=== PATIENT | female | born 1970 | race Caucasian/White ===

== ENCOUNTER 2022-12-24 14:25 | Outpatient (OUT) | payer BC, SELFPAY ==
--- NOTE | 2022-12-24 14:55 | MM_ITS ---
Patient: MARTA MORALEZ Exam Date: 12/24/2022 : 1970 Gender:F Ordering : YUKO FLORES Admission #: [id number] Family : Order #: [id number] CLICK HERE TO VIEW EXAM RADIOLOGY REPORT PROCEDURE: MM TOMOSYNTHESIS SCREENING BI COMPARISON: MAMMO MARY BETH SCREEN, 11/15/2012. INDICATIONS: Z12.31 Calculator Name NCI Breast Cancer Risk Assessment Tool 5 Year Breast Cancer Risk 0.70% Lifetime Breast Cancer Risk 5.70% Personal Breast Cancer No Personal Ovarian Cancer No Treatments None Family Cancers Mother with cervical cancer at age 42. LOCATION: The [facility] BREAST COMPOSITION: Heterogeneously dense,which may obscure small masses. FINDINGS: DIAGNOSTIC CATEGORY 0--INCOMPLETE: NEED ADDITIONAL IMAGING EVALUATION. RIGHT BREAST: Collection of tiny calcifications within the upper axillary tail incompletely included on today's study. Axillary views and spot magnification views recommended for further evaluation. LEFT BREAST: Stable lymph node favoring benign etiology within the posterior upper-outer quadrant. RECOMMENDATIONS: ADDITIONAL MAMMOGRAPHIC VIEWS REQUIRED: RIGHT BREAST - RIGHT OBLIQUE SPOT MAGNIFICATION VIEW / AXILLARY VIEW PLEASE NOTE: A NORMAL MAMMOGRAM DOES NOT EXCLUDE THE POSSIBILITY OF BREAST CANCER. A CLINICALLY SUSPICIOUS PALPABLE LUMP SHOULD BE BIOPSIED. Dictated by: Cameron Sullivan M.D. on 12/27/2022 at 13:19 Approved by: Cameron Sullivan M.D. on 12/27/2022 at 13:23
[2022-12-24 15:16] LABS: Basophils Absolute Auto 0.1 10^3/uL (0.0-0.1); Basophils Percent Auto 0.7 % (0.2-2.0); Eosinophils Absolute Auto 0.2 10^3/uL (0.0-0.7); Eosinophils Percent Auto 2.2 % (0.9-7.0); Hematocrit 40.8 % (36.0-48.0); Hemoglobin 13.5 g/dL (12.0-16.0); Immature Granulocytes Abs Auto 0.02 10^3/uL (0.00-0.03); Immature Granulocytes Pct Auto 0.2 % (0.0-0.5); Lymphocytes Absolute Auto 1.6 10^3/uL (1.2-3.8); Lymphocytes Percent Auto 19.2 % (20.5-60.0); Mean Corpuscular HGB Conc 33.1 g/dL (29.9-35.2); Mean Corpuscular Hemoglobin 31.7 pg (26.7-34.0); Mean Corpuscular Volume 95.8 fL (81.0-99.0); Mean Platelet Volume 10.6 fL (9.5-13.5); Monocytes Absolute Auto 0.4 10^3/uL (0.3-0.8); Neutrophils Absolute Auto 5.9 10^3/uL (1.4-6.5); Neutrophils Percent Auto 72.7 % (43.0-75.0); Platelet Count 226 10^3/uL (150-450); Red Blood Count 4.26 10^6/uL (4.20-5.40); Red Cell Distribution Width 14.4 % (11.0-15.0); White Blood Count 8.2 10^3/uL (4.0-11.0)
[2022-12-24 15:37] LABS: Estimated Average Glucose 97 mg/dL
[2022-12-24 15:54] LABS: Alanine Aminotransferase 9 U/L (14-59); Albumin Level 3.8 g/dL (3.4-5.0); Alkaline Phosphatase 59 U/L (46-116); Anion Gap 9.2; Aspartate Amino Transferase 11 U/L (15-37); BUN Creatinine Ratio 11.1; Bilirubin Total 0.3 mg/dL (0.2-1.0); Calcium 8.7 mg/dL (8.5-10.1); Carbon Dioxide 29.3 mmol/L (21.0-32.0); Chloride 103 mmol/L (98-107); Chol HDL Ratio 4.3; Cholesterol 181 mg/dL (<=200); Estimated GFR (African America >60 (>=60); Estimated GFR (Non-African Ame >60 (>=60); Globulin 3.8 g/dL; Glucose 94 mg/dL (74-106); HDL Cholesterol 42 mg/dL (40-60); LDL Cholesterol Calculated 123.2 mg/dL; Potassium 3.5 mmol/L (3.5-5.1); Sodium 138 mmol/L (136-145); Thyroid Stimulating Hormone 1.423 uIU/mL (0.358-3.740); Total Protein 7.6 g/dL (6.4-8.2); Triglycerides 79 mg/dL (<=150); VLDL CHOLESTEROL 15.8 mg/dL
[2022-12-25 05:07] LABS: HCV Ab Non Reactive (Non Reactive); HIV Ab/p24 Ag Screen Non Reactive (Non Reactive)
== END 2022-12-24 14:26 | disposition home or self-care (01) ==
LOC: MAMMO 14:25
PROVIDERS: PCP Nurse Practitioner Primary Care; Visit Provider Nurse Practitioner Primary Care
DX: Z00.00 Encounter for general adult medical examination without abnormal findings (principal); Z13.6 Encounter for screening for cardiovascular disorders; Z11.59 Encounter for screening for other viral diseases; Z13.29 Encounter for screening for other suspected endocrine disorder; Z11.4 Encounter for screening for human immunodeficiency virus [HIV]; Z12.31 Encounter for screening mammogram for malignant neoplasm of breast; Z80.8 Family history of malignant neoplasm of other organs or systems; R92.1 Mammographic calcification found on diagnostic imaging of breast
CPT/HCPCS: 36415; 77063; 77067; 80053; 80061; 83036; 84443; 85025; 86803; 87389

== ENCOUNTER 2023-01-06 18:55 | Outpatient (REF) | payer BC, SELFPAY ==
[2023-01-11 14:13] LABS: Age Gdln ACOG Testing Note (.); HPV Aptima Negative (Negative); IGP, Aptima HPV, rfx 16/18,45 Note (.)
== END 2023-01-06 18:56 | disposition home or self-care (01) ==
LOC: LAB 18:55
PROVIDERS: PCP Nurse Practitioner Primary Care; Visit Provider Physician Assistant
DX: Z01.419 Encounter for gynecological examination (general) (routine) without abnormal findings (principal)
CPT/HCPCS: 87624; G0145

== ENCOUNTER 2023-01-17 14:28 | Outpatient (OUT) | payer BC, SELFPAY ==
--- NOTE | 2023-01-17 14:30 | US_ITS ---
The [address] [address] Patient Name: MARTA MORALEZ MRN: [id number] date: 1970 Sex: F Assigned Patient Location: Current Patient Location: Accession/Order Number: [id number] Exam Date: 01/17/2023 14:30 Report Date: 01/18/2023 07:29 At the request of: IRISH AVALOS Procedure: US pelvis w/ transvaginal EXAMINATION: US pelvis w/ transvaginal HISTORY: PELVIC PAIN COMPARISON: No relevant comparison available. FINDINGS: Transabdominal and transvaginal images The uterus is normal in size, contour and myometrial echotexture measuring 7.8 x 3.9 x 5.1 cm. Anteverted, anteflexed. No focal myometrial mass. The endometrium measures 9 mm, normal. The right ovary is normal measuring 1.6 x 0.7 x 1.7 cm. Normal color Doppler flow. Left ovary is not visualized. No free fluid US/US pelvis w/ transvaginal IMPRESSION: Nonvisualization of the left ovary, otherwise normal exam Electronically authenticated by: SRIDHAR BARRON Date: 01/18/2023 07:29
== END 2023-01-17 14:29 | disposition home or self-care (01) ==
LOC: US 14:28
PROVIDERS: PCP Nurse Practitioner Primary Care; Visit Provider Physician Assistant
DX: R10.2 Pelvic and perineal pain (principal)
CPT/HCPCS: 76830; 76856

== ENCOUNTER 2023-01-19 13:56 | Outpatient (OUT) | payer BC, SELFPAY ==
--- NOTE | 2023-01-19 14:00 | MM_ITS ---
Patient: MARTA MORALEZ Exam Date: 01/19/2023 : 1970 Gender:F Ordering : YUKO FLORES Admission #: [id number] Family : Order #: [id number] CLICK HERE TO VIEW EXAM RADIOLOGY REPORT PROCEDURE: MM DIAGNOSTIC MAMMO UNILAT RT, 01/19/2023, 14:00 US BREAST RT LIMITED, 01/19/2023, 14:17 COMPARISON: MM TOMOSYNTHESIS SCREENING BI, 12/24/2022. INDICATIONS: Abnormal Mammogram Of Right Breast Calculator Name NCI Breast Cancer Risk Assessment Tool 5 Year Breast Cancer Risk 0.70% Lifetime Breast Cancer Risk 5.70% Personal Breast Cancer No Personal Ovarian Cancer No Treatments None Family Cancers Mother with cervical cancer at age 42. LOCATION: The [facility] BREAST COMPOSITION: Heterogeneously dense,which may obscure small masses. FINDINGS: DIAGNOSTIC CATEGORY 2--BENIGN FINDING: Standard and magnification views of the right axilla demonstrate geographically distributed calcifications with multiple lucent centered calcifications as well as calcified cysts. Ultrasound of this region demonstrates normal subcutaneous fat and muscle with no focal mass. Benign calcifications are favored RECOMMENDATIONS: ROUTINE MAMMOGRAM AND CLINICAL EVALUATION IN 12 MONTHS. PLEASE NOTE: A NORMAL MAMMOGRAM DOES NOT EXCLUDE THE POSSIBILITY OF BREAST CANCER. A CLINICALLY SUSPICIOUS PALPABLE LUMP SHOULD BE BIOPSIED. Dictated by: Mika Alarcon MD on 01/20/2023 at 12:02 Approved by: Mika Alarcon MD on 01/20/2023 at 12:03
== END 2023-01-19 13:57 | disposition home or self-care (01) ==
PROVIDERS: PCP Nurse Practitioner Primary Care; Visit Provider Nurse Practitioner Primary Care
DX: R92.8 Other abnormal and inconclusive findings on diagnostic imaging of breast (principal); Z80.8 Family history of malignant neoplasm of other organs or systems
CPT/HCPCS: 76642; 77065

== ENCOUNTER 2023-04-11 11:18 | Outpatient (REF) | payer BC, SELFPAY ==
--- OUTSIDE RECORDS SUMMARY | 2023-06-03 11:21 | XMS_ITS | CCD ---
Author Name Unknown Address [address] [place] [address] Organization [facility] Care Team Providers Care Principal Developer Name Role Phone SASHA, DR ASH Admitting [...] Attending Unavailable KARASIK, DR ASH Consulting Unavailable KARASIAnne, Alan Primary Care Physician [phone] Manny Keller Attending Provider [phone] Unavailable Primary Care Provider UnavailManny Stallworth Attending Unavailable Manny Keller Admitting Unavailable MANNY KELLER Attending Unavailable VIVIENNE AVALOS Attending Unavailable Manny Keller DO Unavailable John Sinclair Primary Care Provider [phone] CHASE ROBERTS Attending Unavailable JOHN FLORES Referring Unavailable JOHN FLORES Primary Care Unavailable Medications Current Medications Medication Drug Class(es) Dates Sig (Normalized) Sig (Original) Tylenol PM (1 source) Histamine-1 Receptor Antagonist Start: 10-16-2021 Tylenol PM Oral, Once a day (at bedtime) Start Date: 10/16/21 Status: Ordered acetaminophen 325 mg / oxyCODONE hydrochloride 5 mg oral tablet (1 source) Opioid Agonist Start: 05-06-2023 take 1 tablet by mouth every six hours oxyCODONE-acetamin ophen (Percocet) 5-325 MG tablet Take 1 tablet by mouth every 6 (six) hours 0 05/06/2023 Active ARIPiprazole 2 mg oral tablet (2 sources) Atypical Antipsychotic take 1 tablet by mouth in the morning ARIPiprazole (ABILIFY) 2 mg tablet Take 1 tablet (2 mg total) by mouth in the morning. 0 Active hydrOXYzine pamoate 25 mg oral capsule (4 sources) Antihistamine Start: 12-22-2022 hydrOXYzine pamoate (Vistaril) 25 MG capsule every 12 (twelve) hours. 0 12/22/2022 Active take 1 tablet by bradley th three times daily as needed hydrOXYzine (ATARAX) 25 mg tablet Take 1 tablet (25 mg total) by mouth 3 (three) times a day as needed for itching. 0 Active ibuprofen 800 mg oral tablet (1 source) Nonsteroidal Anti-inflammatory Drug Start: 05-06-2023 take 1 tablet by mouth every eight hours ibuprofen 800 MG tablet Take 800 mg by mouth every 8 (eight) hours 0 05/06/2023 Active ondansetron 4 mg oral tablet (2 sources) Serotonin-3 Receptor Antagonist take 1 tablet by mouth every eight hours as needed for nausea and vomiting ondansetron (ZOFRAN) 4 mg tablet Take 1 tablet (4 mg total) by mouth every 8 (eight) hours as needed for nausea or vomiting. 0 Active semaglutide, weight loss, (WEGOVY) 2.4 mg/0.75 mL pen injector (2 sources) semaglutide, weight loss, (WEGOVY) 2.4 mg/0.75 mL pen injector Inject 0.75 mL (2.4 mg total) under the skin every 7 days. 0 Active sertraline 50 mg oral tablet (4 sources) Serotonin Reuptake Inhibitor Start: 12-22-2022 take 1 tablet by mouth once daily in the morning sertraline (Zoloft) 50 MG tablet 1 tablet Orally Once a day in the morning for 30 days 0 12/22/2022 Active take 1 tablet by mouth in the mo rning sertraline (ZOLOFT) 100 mg tablet Take 1 tablet (100 mg total) by mouth in the morning. 0 Active traZODone hydrochloride 50 mg oral tablet (4 sources) Serotonin Reuptake Inhibitor Start: 12-22-2022 traZODone (Desyrel) 50 MG tablet take 1 tablet by mouth once gary y traZODone (DESYREL) 100 mg tablet Take 1 tablet (100 mg total) by mouth nightly. 0 Active Completed/Discontinued Medications Medication Drug Class(es) Dates Sig (Normalized) Sig (Original) cephalexin 500 mg oral capsule (1 source) Cephalosporin Antibacterial Start: 10-16-2021 take 1 capsule by mouth once daily Keflex 500 mg Cap 500 mg = 1 cap(s), Oral, Daily, Take 1 tab day before procedure and 1 after procedure, # 2 cap(s), Refills(s) 0, Pharmacy: [address], 172, cm, 10/16/21 14:14:00 EDT, Height/Length Dosing, 102, kg, 10/16/21 14:14:00 EDT, Weight Dosing Start Date: 10/16/21 Status: Ordered Wegovy 2.4 MG/0.75ML solution auto-injector (2 sources) Start: 08-02-2022 End: 05-12-2023 inject 2.4 mg by subcutaneous injection every week Wegovy 2.4 MG/0.75ML solution auto-injector INJECT 2.4MG SUBCUTANEOUSLY EVERY WEEK FOR WEIGHT LOSS Subcutaneous for 28 days 0 08/02/2022 05/12/2023 Discontinued Start: 08-02-2022 inject 2.4 mg by sub cutaneous injection every week Wegovy 2.4 MG/0.75ML solution auto-injector INJECT 2.4MG SUBCUTANEOUSLY EVERY WEEK FOR WEIGHT LOSS Subcutaneous for 28 days 0 08/02/2022 Active Problems Problem Classification Problem Date Documented Date Episodic/Chronic Abdominal pain (3 sources) Pelvic and perineal pain; Translations: [Pain in female pelvis] Onset: 09-07-2021 04-11-2023 Episodic Genitourinary symptoms and ill-defined conditions (2 sources) Stress incontinence (female) (male); Translations: [Genuine stress incontinence] Onset: 10-16-2021 Chronic Genitourinary symptoms and ill-defined conditions (6 sources) Sensation as if bladder still full; Translations: [Feeling of incomplete bladder emptying] Onset: 10-16-2021 Episodic Immunizations and screening for infectious disease (1 source) Encounter for screening for human papillomavirus (HPV); Translations: [ENC SCREENING HUMAN PAPILLOMAVIRUS] Onset: 07-02-2021 Episodic Inflammatory diseases of female pelvic organs (1 source) 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 adhesions (postinfective); Translations: [FE PELV PERITON ADHES POSTINFECTIVE] Onset: 09-07-2021 Episodic Menstrual disorders (4 sources) Menorrhagia; Translations: [Excessive and frequent menstruation with regular cycle] Onset: 04-11-2023 04-11-2023 Chronic Mood disorders (1 source) Depressive disorder 10-16-2021 Chronic Other aftercare (1 source) Surgical follow-up; Translations: [Encounter for follow-up examination after completed treatment for conditions other than malignant neoplasm] 05-12-2023 Episodic Other diseases of bladder and urethra (1 source) Mass of urinary bladder; Translations: [Other specified disorders of bladder] Onset: 05-20-2023 05-25-2023 Chronic Other female genital disorders (5 sources) Abnormal uterine and vaginal bleeding, unspecified; Translations: [ABNORMAL UTERINE VAGINAL BLEED UNS] Onset: 07-14-2021 Chronic Other female genital disorders (2 sources) Pain in female genitalia on intercourse; Translations: [Unspecified dyspareunia] Onset: 04-11-2023 04-11-2023 Chronic Other female genital disorders (1 source) Dysplasia of cervix uteri, unspecified; Translations: [DYSPLASIA CERVIX UTERI UNSPECIFIED] Onset: 09-07-2021 Episodic Other screening for suspected conditions (not mental disorders or infectious disease) (3 sources) Abnormal findings on diagnostic imaging of other specified body structures; Translations: [Endometrium thickened] Onset: 09-07-2021 04-11-2023 Chronic Other screening for suspected conditions (not [...] source) Finding of sensation of bladder 10-16-2021 Unclassified (1 source) New Patient Onset: 05-20-2023 Results Test Name Value Interpretation Reference Range Facility POCT Urinalysis Auto, W/O Mi croscopyon 05-20-2023 External Poct Urine Blood Trace [facility] External Poct Urine Glucose Negative [facility] External Poct Urine Ketones Trace [facility] External Poct Urine Leukocyte Esterase Trace [facility] External Poct Urine Nitrite Negative [facility] External Poct Urine Ph 6.0 [facility] External Poct Urine Protein Negative [facility] ALL CBC WITH AUTO DIFFon BASOPHILS ABSOLUTE AUTO 0.0 [facility] Basophils/100 WBC (Bld) 0.3 % 0.2 - 2.0 % [facility] Eosinophils/100 WBC (Bld) 0.3 % Low 0.9 - 7.0 % [facility] Erythrocyte distribution width (RBC) [Ratio] 14.4 % 11.0 - 15.0 % [facility] Hematocrit (Bld) [Volume fraction] 35.2 % Low 36.0 - 48.0 % [facility] ([facility] [Mass/Vol] 11.5 g/dL Low 12.0 - 16.0 g/dL [facility] IMMATURE GRANULOCYTES ABS AUTO 0.04 High [facility] Immature granulocytes/100 WBC (Bld) 0.3 % 0.0 - 0.5 % [facility] Interpretation and review of laboratory results Abnormal [facility] LYMPHOCYTES ABSOLUTE AUTO 2.9 [facility] Lymphocytes/100 WBC (Bld) 23.4 % 20.5 - 60.0 % [facility] MCH (RBC) [Entitic mass] 31.2 pg 26.7 - 34.0 pg [facility] MCHC (RBC) [Mass/Vol] 32.7 g/dL 29.9 - 35.2 g/dL [facility] MCV (RBC) [Entitic vol] 95.4 fL 81.0 - 99.0 fL [facility] MONOCYTES ABSOLUTE AUTO 1.0 High [facility] Monocytes/100 WBC (Bld) 7.7 % 1.7 - 12.0 % [facility] NEUTROPHILS ABSOLUTE AUTO 8.4 High [facility] Neutrophils/100 WBC (Bld) 68.0 % 43.0 - 75.0 % [facility] Platelet mean volume (Bld) [Entitic vol] 9.3 fL Low 9.5 - 13.5 fL [facility] EO # 0.0 [facility] PLT 232 [facility] RBC 3.69 Low [facility] WBC 12.4 High [facility] [place] 05-05-2023 L Specimen: [id number] Received: 05/06/23 Status: PATRICK Esparza Num: [id number] Spec Type: Surgical Subm Dr: Manny Keller Tissues: A Uterus w/ or w/o tubes ovaries except neoplastic or prolap (UTERU MARY BETH FT) Procedures: HE/12, Gross/Micro L5 Age/ Patient Sex Location Account Attending Physician Priscilla Waters 52/F LABELL [id number] Manny Keller SPEC NUM: [id number] RECD: 05/06/23 STATUS: [facility] NUM: [id number] NIGEL: 05/05/[address]: Manny Keller ENTERED: 05/06/[address]: Carolynn,Lab SPEC TYPE: Surgical DEPT: AQUILES PHAM ORDERED: HE/12, Gross/Micro L5 ORDERED: HE/12, Gross/Micro L5 Pathological Diagnosis Uterus, Cervix and Bilateral Tubes, Hystrectomy: ? Uterus: Adenomyosis. Cervix: Unremarkable. Fallopian Tubes: Unremarkable. Clinical Information Pelvic pain, menorrhagia Gross Description Received in formalin labeled with the patient's name, date of and uterus and fallopian tubes is an intact/unopened 80 g, 8.6 x 5.0 x 3.5 cm uterus. The fallopian tubes are received detached and with no laterality specified. The uterine serosa is purple-wolf and dull. The cervix is 3.3 cm in diameter with wolf dull ectocervical mucosa. There is a discrete transition zone and a 1.1 cm linear os leading into a trabeculated 2.5 cm long endocervical canal. The endometrial cavity is 2.7 cm cornu to cornu by 3.2 cm fundus to lower uterine segment. The endometrium is 0.1 cm thick red-brown and velvety. The myometrium is 2 cm in average thickness with vague trabeculations throughout. There are no well-circumscribed nodules identified. The segments of fimbriated fallopian tube are 2 cm in length by 0.4 cm in diameter and 3.2 cm in length by 0.5 cm in diameter. Bilaterally, the serosa is purple-christopher and glistening. Sectioning demonstrates a central lumen. The fimbria are scant but otherwise unremarkable. Developer Designer sections are submitted in 6 cassettes as follows: -------- Specimen: [id number] Received: 05/06/23 Status: PATRICK Esparza Num: [id number] Spec Type: Surgical Subm Dr: Manny Keller Tissues: A Uterus w/ or w/o tubes ovaries except neoplastic or prolap (UTERU MARY BETH FT) Procedures: , Gross/Micro L5 -------- Patient: Priscilla Waters [id number] (Continued) -------- Specimen: [id number] Received: 05/06/23 (Continued) Gross Description (Continued) Signed (signature on file) Madelaine Gar MD 05/09/23 2254 -------- Specimen: [id number] Received: 05/06/23 Status: PATRICK Esparza Num: [id number] Spec Type: Surgical Subm Dr: Manny Keller Tissues: A Uterus w/ or w/o tubes ovaries except neoplastic or prolap (UTERU MARY BETH FT) Procedures: Gross/Micro L5 -------- Patient: Priscilla Waters [id number] (Continued) -------- Specimen: [id number] Received: 05/06/23 (Continued) Gross Description (Continued) A1 - Posterior cul-de-sac serosa A2 - Anterior and posterior cervix A3 - Anterior endomyometrium A4 - Posterior endomyometrium A5 - [place] fallopian tube entirely submitted A6 - Longer fallopian tube with fimbria entirely submitted CPT Codes 81179 -------- -------- Specimen: [id number] Received: 05/06/23 Status: PATRICK Esparza Num: [id number] Spec Type: Surgical Subm Dr: Manny Keller Tissues: A Uterus w/ or w/o tubes ovaries except neoplastic or prolap (UTERU MARY BETH FT) Procedures: , Gross/Micro L5 -------- Patient: Priscilla Waters [id number] (Continued) -------- Signed (signature on file) Madelaine Gar MD 05/09/23 2254 [facility] Pre-Certification Formon Pre-Certification Form [id number]# 1.00CD:127 [facility] Physician Referralon 022 Physician Referral [id number]#1 .00CD:127 [facility] Ambulatory Visit Summaryon 0 10-16-2021 Ambulatory Visit Summary PRISCILLA WATERS :1970 Visit Date:10/16/2021 Ambulatory Visit Instructions Your Diagnosis Feeling of incomplete bladder emptying Stress incontinence Tests Performed Urnls Dip Stick Auto w/o Microscopy POC 91347 Your Care Team Attending Physician - Crystal Richter MD Primary Care Physician - Alan BRAVO MD Referring Physician - Alan BRAVO MD This Is Your Medications List Contact prescribing physician if questions or concerns acetaminophen-diphenh ydrAMINE (Tylenol PM) Procedures Performed Diagnostic laparoscopy (08/2021), Dilation and curettage of uterus (08/2021), Cholecystectomy (2014), Tubal ligation (2004). Discharge Vitals Heart Rate (Peripheral) 87 Respiratory Rate 16 Blood Pressure 180/92 Height 172 cm Height 172.0 cm Weight 102 kg Weight 102.0 kg BMI 34.48 What to do next You Need to Schedule the Following Appointments Follow Up with Rober SANDHU, Cyrstal Pierce, URL, URO When: Where: [address] [place] [address]- [phone] Medications What How Much When Instructions Unchanged acetaminophen-diphenh ydrAMINE (Tylenol PM) Once a day (at bedtime) Contact prescribing physician if questions or concerns Test Results Urnls Dip Stick Auto w/o Microscopy POC 21775 (10/16/2021) Bilirubin Urine Dipstick - Negative Blood Urine Dipstick - Negative Glucose Urine Dipstick - Negative Ketones Urine Dipstick - Negative Leukocytes Urine Dipstick - 1+ Small Nitrite Urine Dipstick - Negative Protein Urine Dipstick - Negative Specific [place] Urine Dipstick - <=1.005 Urine Appearance Urine [...] including vitamins, herbs, eye drops, creams, and bzmr-paa-qjtqzbz medicines. ? Whether you are or may [...] ? Rem (more content not included)... Normal [facility] Patient Educationon 10-17-19 Patient Education Urology [...] including vitamins, herbs, eye drops, creams, and qkub-qcf-usmlzpt medicines. ? Whether you are or may [...] system diseases. (more content not included)... Normal [facility] PREG HCG QUALon 08-14-2021 , QUAL Negative Normal NEGATIVE [facility] Comment on above: Performed By: #### P REG #### [facility] [address] [place] [address] Dr. Thom Gonzalez US PELVIS AND TRANSVAGon [...] by: KAIT ELMORE Date: 2021-07-10 09:07 Normal [facility] PAP ACOG PANEL 2: 30 to 65on 07-06-2021 . . Normal [facility] Comment on above: Result Comment: Perf ormed at: WB Performed By: #### [id number] #### [facility] [address] [address] [address] Thom Gonzalez Age Gdln ACOG Testing - Normal [facility] Comment on above: Performed By: #### 4 [id number] #### [facility] [address] [address] [address] Thom Gonzalez DIAGNOSIS: Comment Normal [facility] Comment on above: Result Comment: NEGA TIVE FOR INTRAEPITHELIAL LESION OR MALIGNANCY. Performed at: WB Performed By: #### [id number] #### [facility] [address] [address] [address] Thom Gonzalez HPV Aptima Negative Normal Negative [facility] Comment on above: Result Comment: This nucleic acid amplification test detects fourteen high-risk HPV types (16,18,31,33,35,39,45,51,52,56,58,59,66,68) without differentiation. Performed at: =G Performed By: #### 4 [id number] #### [facility] [address] [address] [address] Thom Gonzalez Methodology: Comment Normal [facility] Comment on above: Result Comment: This liquid based ThinPrep(R) pap test was screened with the use of an image guided system. Performed at: WB Performed By: #### [id number] #### [facility] [address] [place] [address] Dr. Thom Gonzalez Note: Comment Normal [facility] Comment on above: Result Comment: The Pap smear is a screening test designed to aid in the detection of premalignant and malignant conditions of the uterine cervix. It is not a diagnostic procedure and should not be used as the sole means of detecting cervical cancer. Both false-positive and false-negative reports do occur. . Performed at: WB Performed By: #### [id number] #### [facility] [address] [place] [address] Dr. Thom Gonzalez Performed by: Comment Normal [facility] Comment on above: Result Comment: Lesvia Irizarry Grocery Worker (ASCP) Performed at: WB Performed By: #### [id number] #### [facility] [address] [place] [address] Dr. Thom Gonzalez Specimen adequacy: Comment Normal [facility] Comment on above: Result Comment: Sati sfactory for evaluation. Endocervical and/or squamous metaplastic cells (endocervical component) are present. Performed at: WB Performed By: #### [id number] #### [facility] [address] [place] [address] Dr. Thom Gonzalez Vital Signs Date Time Vital Sign Value Performing Clinician Facility 05-20-2023 16:03-0500 Body height 172.7 cm Chase Roberts MD Work Phone: [facility] 05-20-2023 16:03-0500 Body mass index (BMI) [Ratio] 22.2 kg/m2 Chase Roberts MD Work Phone: [facility] 05-20-2023 16:03-0500 Body weight 66.22 kg Chase Roberts MD Work Phone: [facility] 05-20-2023 16:03-0500 Diastolic blood pressure 66 mm[Hg] Chase Roberts MD Work Phone: [facility] 05-20-2023 16:03-0500 Heart rate 79 /min Chase Roberts MD Work Phone: [facility] 05-20-2023 16:03-0500 Systolic blood pressure 97 mm[Hg] Chase Roberts MD Work Phone: [facility] 05-12-2023 14:08-0500 Body mass index (BMI) [Ratio] 22.62 kg/m2 Vivienne Avalos PA Work Phone: [facility] 05-12-2023 14:08-0500 Body weight 67.5 kg Vivienne Amanda PA Work Phone: [facility] 05-12-2023 14:08-0500 Diastolic blood pressure 78 mm[Hg] Vivienne Avalos PA Work Phone: [facility] 05-12-2023 14:08-0500 Systolic blood pressure 120 mm[Hg] Vivienne Avalos PA Work Phone: [facility] 10-16-2021 14:01-0400 Blood Pressure Location Crystal Lue [facility] 10-16-2021 14:01-0400 Diastolic blood pressure 92 mm[Hg] Crystal Lue [facility] 10-16-2021 14:01-0400 Heart rate 87 /min Crystal Lue [facility] 10-16-2021 14:01-0400 Respiratory rate 16 /min Crystal Lue [facility] 10-16-2021 14:01-0400 Systolic blood pressure 180 mm[Hg] [facility] En[facility] Encounter Date Encounter Type Care Provider Facility Start: 05-25-2023 Telephone encounter Chase Mcclellan MD Work Phone: [facility] Start: 05-20-2023 End: 05-20-2023 ambulatory CHASE ROBERTS [facility] Start: 05-20-2023 End: 05-20-2023 Office outpatient new 45 minutes Chase Roberts MD Work Phone: [facility] Comment on above: Disorder of urinary system, unspecified Start: 05-12-2023 End: 05-12-2023 ambulatory VIVIENNE AVALOS Not Available Start: 05-12-2023 End: 05-12-2023 Postop follow up visit related to original px Vivienne KELLEY Work Phone: [facility] Comment on above: Postoperative examin ation Start: 05-06-2023 [facility] Result Encounter Manny Krishna DO Work Phone: [facility] Unsolicited Start: 05-06-2023 [facility] Result Encounter Manny Krishna DO Work Phone: [facility] Unsolicited Start: 05-05-2023 End: 05-05-2023 ambulatory Manny Krishna Facility:[facility] Start: 05-05-2023 End: 05-05-2023 ambulatory Manny Krishna Work Phone: [facility] Work Phone: Start: 05-05-2023 End: 05-05-2023 Departed Referred Manny Krishna Work Phone: [facility] Start: 04-11-2023 End: 04-11-2023 ambulatory MANNY KRISHNA Not Available Start: 10-16-2021 End: 10-16-2021 Patient encounter procedure Crystal Richter [facility] Start: 08-14-2021 End: 08-14-[address] ALAN BRAVO Facility:[facility] Start: 08-11-[address] ALAN BRAVO Faci lity:[facility] Start: 08-05-2021 Encounter for other preprocedural examination DR ALAN BRAVO [facility] Start: 08-03-2021 End: 08-04-[address] ALAN BRAVO Facility:[facility] Start: 08-03-2021 End: 08-04-2021 Encounter for other preprocedural examination DR ALAN BRAVO Facility:[facility] Start: 07-10-2021 End: 07-11-[address] ALAN BRAVO Facility:[facility] Start: 06-30-2021 End: 06-30-[address] ALAN BRAVO Facility:[facility] Procedures Date Procedure Procedure Detail Performing Clinician Start: 05-20-2023 Urnls dip stick/tabl et rgnt auto w/o microscopy Chase Roberts MD Work Phone: Start: 05-06-2023 ALL CBC WITH AUTO DIFF Manny Krishna DO Work Phone: Start: 08-02-2021 Diagnostic laparoscopy Crystal Richter Start: 08-02-2021 Dilation and curetta ge of uterus Crystalamber Richter Start: 06-30-2021 Microscopic observat ion [Identifier] in Cervix by Cyto stain Vivienne KELLEY Work Phone: Start: 04-04-2014 Cholecystectomy Crystal L ue Start: 04-04-2004 Ligation of fallopian tube Crystal Richter Plan of Treatment Date Care Activity Detail Author Start: 06-30-2026 Screening for malign ant neoplasm of cervix [facility] Start: 05-20-2024 Adult BMI Screening Adult BMI Screen ing [facility] Start: 05-20-2024 Tobacco Screening Tobacco Screening [facility] Start: 07-15-2023 End: 07-15-2023 Patient encounter procedure 07/15/2023 2:00 PM EDT Office Visit [facility] [address] [place] [phone] Chase Roberts MD [address] [place] [address] [facility] Start: 06-14-2023 End: 06-14-2023 Admission to same day surgery center 06/14/2023 9:45 AM EDT - 06/14/2023 10:30 AM EDT [facility] [address] [place] [phone] Chase Roberts MD [address] [place] [address] CYSTOSCOPY BIOPSY BLADDER [85494 (CPT )] [facility] Comment on above: CYSTOSCOPY BIOPSY BL ADDER [94214 (CPT )] Start: 06-14-2023 End: 06-14-2023 Cystourethroscopy with biopsy CYSTOSCOPY BIOPSY BLADDER Disorder of urinary system, unspecified Mass of bladder 06/14/2023 9:45 AM EDT [facility] Start: 06-14-2023 Subsequent hospital visit by physician 06/14/2023 9:45 AM EDT Hospital En[facility] [address] [place] [phone] Chase Roberts MD [address] [place] [address] [facility] Start: 06-06-2023 End: 06-06-2023 Patient encounter procedure 06/06/2023 10:45 AM EST Procedure visit [facility] Pre-Admission Clinic On [address] JEAN CARLOSK[place] [address] [facility] Start: 06-02-2023 End: 06-02-2023 Patient encounter procedure 06/02/2023 1:50 PM EST Office Visit [facility] [address] [place] [id number] Raiza Herrera MD [address] [place] [address] [facility] Start: 12-03-2022 COVID-19 Vaccine ( season) COVID-19 Vaccine ( season) [facility] Start: 12-03-2022 Influenza vaccination [facility] Start: 06-29-2019 Administration of va ricella zoster vaccine Zoster (Shingles) Vaccine (1 of 2) [facility] Start: 2009 Screening for malign ant neoplasm of breast Mammogram [facility] Start: 1990 Screening for malign ant neoplasm of cervix Pap Smear [facility] Start: 1988 DTaP,Tdap and Td Vac cines (1 - Tdap) DTaP,Tdap and Td Vaccines (1 - Tdap) [facility] Start: 1981 Depression Screening Depression Scre ening [facility] Start: 1969 Screening for malign ant neoplasm of colon [facility] Start: 1969 Tobacco Counseling Tobacco Counselin g [facility] Cystourethroscopy wi th biopsy CYSTOSCOPY BIOPSY BLADDER Disorder of urinary system, unspecified Mass of bladder [facility] Payers Date Payer Category Payer Self-pay 2021 Unknown [id number] 1970 Unknown [id number] 2.16.84 [id number] 1970 Unknown [id number] 2.16.84 [id number] 1970 Unknown [id number] 2.16.84 [id number] 1970 Unknown [id number] 2.16.84 [id number] 1970 Unknown [id number] 2.16.84 [id number] 1970 Unknown [id number] 2.16.84 [id number] 1970 Unknown [id number] 2.16.84 [id number] 1970 Unknown [id number] 2.16.8 [id number] 1959 Unknown [id number] Social History Date Type Detail Facility Start: 10-16-2021 Tobacco smoking status Light tobacco smoker (finding) [facility] Start: 09-13-2018 End: 05-20-2023 Sex Assigned At Female [facility] Start: 1970 Sex Assigned At Female [facility] smoking consumption unknown [facility] Start: 1970 Sex Assigned At Not on file [facility] Start: 12-27-2022 Gender identity Identifies as female gender (finding) [facility] Start: 12-27-2022 Sexual orientation Heterosexual (finding) [facility] Start: 04-04-1999 Tobacco smoking status PRIS Smokes tobacco daily [facility] Start: 04-04-1999 History of tobacco use Cigarette Smoker [facility] History of tobacco use Passive smoker [facility] Start: 05-19-2023 Tobacco use and exposure Smokeless tobacco non-user [facility] Start: 05-20-2023 Alcohol intake Lifetime non-drinker (finding) [facility] Start: 09-13-2018 End: 05-20-2023 History of Social function [facility] Childcare Unknown [facility] Functional Status Date Assessment Result Facility 10-16-2021 Functional Status N/A [facility] Clinical Notes 10-16-2021 to 05-25-2023 Telephone Encounter - Jane Burgessbandar - 05/25/2023 12:04 PM ESTTelephone Encounter - Jane Pollack - 05/25/2023 12:04 PM ESTTelephone Encounter - Jane Pollack - 05/25/2023 12:04 PM EST Note Date & Type Note Facility 05-25-2023 Miscellaneous Notes ----- Message from Chase Roberts MD sent at 05/20/2023 5:06 PM EST ----- Please schedule this patient for Cysto and bladder Biopsy under MAC at [place] CALLED PATIENT FOR SCHEDULING. HAD TO LEAVE A VM. RETURNED PATIENTS CALL HAD TO LEAVE A VM SPOKE WITH PATIENT SCHEDULED FOLLOWS: PAT - AT 1045AM SURG - 06/14/2023 PATIENT TO ARRIVE AT 815AM F/U- 07/15/2023 AT 2PM LETTER TO PATIENT INTO MY CHART. DR ROBERTS: ARIAS documented in this encounter [facility] 05-25-2023 Telephone encounter Note ----- Message from Chase Roberts MD sent at 05/20/2023 5:06 PM EST ----- Please schedule this patient for Cysto and bladder Biopsy under MAC at [place] [facility] [facility] 05-25-2023 Telephone encounter Note CALLED PATIENT FOR SCHEDULING. HAD TO LEAVE A VM. [facility] 05-25-2023 Telephone encounter Note RETURNED PATIENTS CALL HAD TO LEAVE A VM [facility] 05-25-2023 Telephone encounter Note SPOKE WITH PATIENT SCHEDULED FOLLOWS: PAT - AT 1045AM SURG - 06/14/2023 PATIENT TO ARRIVE AT 815AM F/U- 07/15/2023 AT 2PM LETTER TO PATIENT INTO MY CHART. DR ROBERTS: ARIAS [facility] 05-20-2023 History of Presen t illness Narrative Images from the original note were not included. NEW FEMALE PATIENT HISTORY AND PHYSICAL EXAM NAME: Priscilla Waters CONSULTATION REQUEST BY: Self Chief Complaint Patient presents with New Patient HISTORY OF PRESENT ILLNESS: I was asked to see Priscilla Waters a 52 y.o. year old female with history of Robotic Hysterectomy on 05/05/[address] Keller. During the cystoscopy, a bladder tumor was identified and then she was referred to urology. Patient is an active smoker. She has a 8 month history of voiding dysfunction and incomplete bladder emptying AUASS 22/35 QOL 4/6 ROSIE Bother 0/8 PFDI 20 POPDI-6 08/25 CRAD-8 SUZIE-6 02/25 STRESS URINARY INCONTINENCE: yes URGENCY: yes URGE INCONTINENCE: yes PADS: no FREQUENCY: 10 NOCTURIA: 1 STRAINING TO VOID: yes EMPTIES COMPLETELY: no URINARY TRACT INFECTION: no HEMATURIA HISTORY: no STONES: no PREGNANCIES: yes G 2 P 2 vaginal delivery.. Sexually active with no pain Past Medical History: Diagnosis Date Anxiety Depressed Gall stones Past Surgical History: Procedure Laterality Date CHOLECYSTECTOMY 2016 D&C FIRST TRIMESTER / TX INCOMPLETE / MISSED / SEPTIC / INDUCED 2020 HYSTERECTOMY TUBAL LIGATION 1994 Social History Socioeconomic History Marital status: Spouse name: Not on file Number of children: Not on file Years of education: Not on file Highest education level: Not on file Occupational History Not on file Tobacco Use Smoking status: Every Day Types: Cigarettes Start date: 04/04/1999 Passive exposure: Current Smokeless tobacco: Never Substance and Sexual Activity Alcohol use: Never Drug use: Never Sexual activity: Not on file Other Topics Concern Not on file Social History Narrative Not on file Social Determinants of Health Financial Resource Strain: Not on file Food Insecurity: No Food Insecurity (05/20/2023) Hunger Screening Food Insecurity - Worry: Never True Food Insecurity - Inability: Never True Transportation Needs: Not on file Physical Activity: Not on file Stress: Not on file Social Connections: Not on file Interpersonal Safety: Not on file Housing Instability: Not on file family history includes Alcohol abuse in her father and sister; Arthritis in her sister; Cervical cancer in her mother; Depression in her sister; Heart disease in her father and mother. CAFFEINE: no FLUIDS: 10-12 bottles of water a OCCUPATION: Works for [employer] MEDICATIONS: Current Outpatient Medications: hydrOXYzine (ATARAX) 25 mg tablet, Take 1 tablet (25 mg total) by mouth 3 (three) times a day as needed for itching., Disp: , Rfl: ondansetron (ZOFRAN) 4 mg tablet, Take 1 tablet (4 mg total) by mouth every 8 (eight) hours as needed for nausea or vomiting., Disp: , Rfl: semaglutide, weight loss, (WEGOVY) 2.4 mg/0.75 mL pen injector, Inject 0.75 mL (2.4 mg total) under the skin every 7 days., Disp: , Rfl: traZODone (DESYREL) 100 mg tablet, Take 1 tablet (100 mg total) by mouth nightly., Disp: , Rfl: ARIPiprazole (ABILIFY) 2 mg tablet, Take 1 tablet (2 mg total) by mouth in the morning. (Patient not taking: Reported on 05/20/2023), Disp: , Rfl: sertraline (ZOLOFT) 100 mg tablet, Take 1 tablet (100 mg total) by mouth in the morning. (Patient not taking: Reported on 05/20/2023), Disp: , Rfl: ALLERGIES:No Known Allergies REVIEW OF SYSTEMS GENERAL: no fever, chills, weight loss or fatigue. HEAD & NECK: no blurred vision, cataracts or hearing loss. CARDIOVASCULAR: no chest pain, palpitations, ankle edema. RESPIRATORY: no chronic cough, wheezing, dyspnea, hemoptysis. GENITOURINARY: Vaginal hysterectomy GI: negative for abdominal discomfort or fecal incontinence, no change in bowel habits. URONEURO: no weakness, no balance deficits, no coordination deficits, no back pain. MUSCULOSKELETAL: no chronic back pain, arthritis, chronic neck pain. SKIN: no varicose veins, rash, abnormal itching. BLOOD/LYMPHATIC: no easy bleeding, easy bruising, transfusion history. NEUROLOGICAL: no headaches, numbness, seizures, stroke. PHYSICAL EXAM VITAL SIGNS: Vitals: 05/20/23 1603 BP: 97/66 Pulse: 79 GENERAL: well appearing, in no acute distress, alert. NEUROLOGICAL/PSYCHOLOGICAL: A/Ox3. Normal mood, with no signs of depression, anxiety or agitation. HEAD & NECK: no masses, adenopathy, icterus. Thyroid nonpalpable. RESPIRATORY: normal effort, no retractions or purse-lip breathing. CARDIOVASCULAR: no extremity swelling varices, edema, pallor or erythema. ABDOMEN: soft, nontender, nondistended, no masses. HERNIAS: none. SKIN/LYMPH: no rash, lesions. EXTREMITIES: extremities normal. No deformities, edema, clubbing or skin discoloration. GENITOURINARY: urethral meatus normal CERVIX: absent ADNEXA: non-palpable VAGINAL VAULT: normal for age SENSORY/NEUROLOGICAL EXAM: intact POP Q STAGE: 0 SIMPLE CYSTOMETRICS BLADDER FILLED WITH: 250cc SUPINE STRESS TEST: negative DETRUSOR INSTABILITY: none COMPLEX UROFLOWMETRY: VOIDED: 320cc Max 21.3cc/s Mean 12.5cc/s VOIDING PATTERN: Cook shaped curve URINALYSIS: (LABSTIX) URINE DIP: Lab Results Component Value Date EXTPOCURBS Negative 05/20/2023 EXTPOCUKET Trace 05/20/2023 EXTPOCUBLD Trace 05/20/2023 EXTPOCUPH 6.0 05/20/2023 EXTPOCUPRO Negative 05/20/2023 EXTPOCUNIT Negative 05/20/2023 EXTPOCULEE Trace 05/20/2023 IMPRESSION Patient is a 52 y.o. year old female with bladder mass on cystoscopy after a robotic hysterectomy. Patient has a normal pelvic exam PLAN Patient consented for a cysto and bladder Biopsy under anesthesia Risk and Benefits discussed Total time spent was 45 minutes: Obtaining and/or reviewing separately obtained history Performing a medically appropriate examination and/or evaluation Counseling and educating the patient/family/caregiver Ordering medications, tests, or procedures Referring and communicating with other health acute care nurse practitioner (not separately reported) Documenting clinical information in the electronic or other health record . documented in this encounter [facility] 05-20-2023 Instructions Chase Roberts MD - 05/20/2023 4:00 PM EST Please follow-up for cystoscopy documented in this encounter [facility] 05-12-2023 History of Presen t illness Narrative Reason for Appointment: Patient ID: Priscilla Waters is a 52 y.o. female who presents for Post-op Visit (Robotic assisted hyst 05/05/2023) Patient presents today for 1 Week Post Op appointment. Current Medications: has a current medication list which includes the following prescription(s): hydroxyzine pamoate, ibuprofen, oxycodone-acetaminophen, sertraline, and trazodone. Medical History: Active Ambulatory Problems Diagnosis Date Noted Endometrial thickening on ultrasound 04/11/2023 Menorrhagia with regular cycle 04/11/2023 Pelvic pain in female 04/11/2023 Dysmenorrhea 04/11/2023 Dyspareunia in female 04/11/2023 Resolved Ambulatory Problems Diagnosis Date Noted No Resolved Ambulatory Problems Past Medical History: Diagnosis Date Breast cancer screening by mammogram 2015 No family history on file. Social History Tobacco Use Smoking status: Not on file Smokeless tobacco: Not on file Substance Use Topics Alcohol use: Not on file Drug use: Not on file Past Surgical History: Procedure Laterality Date ROBOTIC ASSISTED HYSTERECTOMY 05/05/2023 TUBAL LIGATION No Known Allergies Review of Systems: Review of Systems Constitutional: Negative. HENT: Negative. Eyes: Negative. Respiratory: Negative. Cardiovascular: Negative. Gastrointestinal: Negative. Genitourinary: Negative. Musculoskeletal: Negative. Skin: Negative. Neurological: Negative. All other systems reviewed and are negative. Hematological: Negative. Endocrine: Negative. Allergic/Immunologic: Negative. Objective Physical Exam Constitutional: Appearance: Normal appearance. She is normal weight. HENT: Head: Normocephalic. Cardiovascular: Rate and Rhythm: Normal rate. Pulses: Normal pulses. Pulmonary: Effort: Pulmonary effort is normal. Breath sounds: Normal breath sounds. Abdominal: Palpations: Abdomen is soft. Musculoskeletal: General: Normal range of motion. Neurological: General: No focal deficit present. Mental Status: She is alert and oriented to person, place, and time. Psychiatric: Mood and Affect: Mood normal. Behavior: Behavior normal. Thought Content: Thought content normal. Judgment: Judgment normal. Vitals and nursing note reviewed. Vitals: Estimated body mass index is 22.62 kg/m as calculated from the following: Height as of 23: 5' 8 . Weight as of this encounter: 148 lb 12.8 oz. BP: 120/78 No LMP recorded (lmp unknown). Patient has had a hysterectomy. Assessment/Plan Encounter Diagnosis Name Primary? Postoperative examination Patient presents today for a one week postop robotic assisted hysterectomy and bilateral salpingectomy with cystoscopy. Patient is doing well with minor complaints of pain. Incision has been noted as healing well with no signs and symptoms of infection. Pt referred to urology in [place] due to possible bladder tumor found during cystoscopy. Pt will follow up in 4 weeks for 6 week post op appt and vaginal cuff exam Follow Up: Patient is to return in 5 weeks for 6 week evaluation. Documented by ALLIE Roque on behalf of: ALLIE Roque documented in this encounter [facility] 10-16-[address] Bravo referral [...] of recent labs. -Obtain outside labs of [facility] to eval renal function. If elevated will [...] as above. Follow-up With When Contact Information Rober SANDHU, Crystal Pierce, URL, [facility] [address], [place] [phone] Additional Instructions: Patient Education Urodynamic Testing I, Aurelia Nunez, personally scribed for _ on 10/16/2021 15:26:15. . Documentation recorded by the Aurelia hayes a (more content not included)... [facility] Comment on above: Result Comment: Elec tronically Signed By: Rober SANDHU, Crystal Lance.br\Date and Time Signed: 10/16/21 18:50 EDT 10-16-2021 Hospital Discharg e instructions Patient Education [...] including vitamins, herbs, eye drops, creams, and nwll-rvy-alezvup medicines. ?Whether you are or may be [...] 01/16/2008 Document Revised: 07/10/2019 Document Reviewed: 01/23/2018 [employer] Patient Education 2020 [employer] Follow Up Care 10/08/2021 10:43:51 With:Rober SANDHU, VIRGIL Quinones, [facility] Address: [address] [place] [phone] When: Unknown [facility] Evaluation + Plan note No data available for this section [facility] Evaluation note No assessment inform ation available [facility] Work Phone: Evaluation note Diagnosis Postoperative examination Follow-up examination, following unspecified surgery documented [facility] Disorder of urinary system, unspecified documented [facility] filed[facility] in this [facility] No data available for this section [facility] Juan Summary Purpose Family History No Family History Records FoundNo Family History Records FoundNo Family History Records FoundNo Family History Records FoundNo Family History Records Found Advance Directives No Advanced Directives Records FoundNo Advanced Directives Records FoundNo Advanced Directives Records FoundNo Advanced Directives Records FoundNo Advanced Directives Records Found Additional Source Comments INFORMATION SOURCE (unrecogn ized section and content) DATE CREATED AUTHOR 09/08/2021 [facility] DATE CREATED AUTHOR AUTHOR'S ORGANIZ ATION 10/26/2021 [facility] DATE CREATED AUTHOR AUTHOR'S ORGANIZ ATION 05/10/2023 [facility] DATE CREATED AUTHOR AUTHOR'S ORGANIZ ATION 05/13/2023 [facility] EPIC DATE CREATED AUTHOR AUTHOR'S ORGANIZ ATION 05/22/2023 [facility] Care Team (unrecognized sect ion and content) Team Status: Inactive Member Role Status Dates Manny Kleler Attending Provider Active [facility] End: May 05, 2023 Principal Developer Relationship Specialty Start Date End Date Manny Keller DO [address] [place] [address] [place] [address] PCP - [place] [employer] 04/04/23 Principal Developer Relationship Specialty Start Date End Date John Flores APRN-CNP [address] [place] [phone] PCP - General Primary Care 05/20/23 Principal Developer Relationship Specialty Start Date End Date John Flores APRN-SPACE OFFICER [address] [place] [id number] PCP - General Primary Care 05/20/23 Goals (unrecognized section and content) Goals may be documented in a n alternate section Reason for Visit (unrecogniz ed section and content) Reason Comments Post-op Visit Robotic assisted hys t 05/05/2023 Reason Comments New Patient Specialty Diagnoses / Procedures Referred By Contac t Referred To Contact Urology Diagnoses Disorder of urinary system, unspecified John Flores, LENS GENERATOR-SPACE OFFICER [address] [place] [address] [facility] S[facility] [address] [place] [address] [place] [address] Referral ID Status Reason Start Date Expiration Date Visits Requested Visits Authorized [id number] Pending Review Specialty Services Required 3 03/14/2024 1 1 FOR RECORDS PERTAINING TO PATIENTS WHO ARE [...] BE BASED ON THE PRIMARY CLINICAL RECORDS. [facility] [facility]. provides no warranty or guarantee of the accuracy or completeness of information in this document.
== END 2023-04-11 11:19 | disposition home or self-care (01) ==
LOC: LAB 11:18
PROVIDERS: PCP Nurse Practitioner Primary Care; Visit Provider Obstetrics & Gynecology
DX: R10.2 Pelvic and perineal pain (principal); R93.89 Abnormal findings on diagnostic imaging of other specified body structures
CPT/HCPCS: 88305

== ENCOUNTER 2023-04-29 12:31 | Outpatient (OUT) | payer BC, SELFPAY ==
--- OUTSIDE RECORDS SUMMARY | 2023-04-29 12:34 | XMS_ITS | CCD ---
Author Name Unknown Address [address] [place] [address] Organization [facility] Care Team Providers Care Bad Work Gatherer Name Role Phone SASHA, DR ASH Admitting Unavailable KARASIK, DR ASH Attending Unavailable KARASIK, DR ASH Consulting Unavailable ZIEBER, DR KAIT Monique Consulting Unavailable KARASIK, DR ASH Admitting Unavailable KARASIK, DR ASH Attending Unavailable YUHAS, DR CADE Primary Care Unavailable KARASIK, DR ASH Admitting Unavailable KARASIK, DR ASH Attending Unavailable YUHAS, DR CADE Primary Care Unavailable KARASIK, DR ASH Consulting Unavailable KARASIK, DR ASH Admitting Unavailable KARASIK, DR ASH Attending Unavailable YUHAS, DR CADE Primary Care Unavailable KARASIK, DR ASH Consulting Unavailable AGUBOSIM, MICHELLE Consulting Unavailable DORKOSKIE, BABITA Consulting Unavailable KARASIK, DR ASH Admitting Unavailable KARASIK, DR ASH Attending Unavailable KARASIK, DR ASH Consulting Unavailable KARASIK, Alan Primary Care Physician MANNY SIBLEY Attending Unavailable Medications Current Medications Medication Drug Class(es) Dates Sig (Normalized) Sig (Original) Tylenol PM (1 source) Histamine-1 Receptor Antagonist Start: 10-16-2021 Tylenol PM Oral, Once a day (at bedtime) Start Date: 10/16/21 Status: Ordered Completed/Discontinued Medications Medication Drug Class(es) Dates Sig (Normalized) Sig (Original) cephalexin 500 mg oral capsule (1 source) Cephalosporin Antibacterial Start: 10-16-2021 take 1 capsule by mouth once daily Keflex 500 mg Cap 500 mg = 1 cap(s), Oral, Daily, Take 1 tab day before procedure and 1 after procedure, # 2 cap(s), Refills(s) 0, Pharmacy: [facility], 172, cm, 10/16/21 14:14:00 EDT, Height/Length Dosing, 102, kg, 10/16/21 14:14:00 EDT, Weight Dosing Start Date: 10/16/21 Status: Ordered Problems Problem Classification Problem Date Documented Date Episodic/Chronic Abdominal pain (1 source) Pelvic and perineal pain; Translations: [PELVIC AND PERINEAL PAIN] Onset: 09-07-2021 Episodic Genitourinary symptoms and ill-defined conditions (2 sources) Stress incontinence (female) (male); Translations: [Genuine stress incontinence] Onset: 10-16-2021 Chronic Genitourinary symptoms and ill-defined conditions (1 source) Sensation as if bladder still full; Translations: [Feeling of incomplete bladder emptying] Onset: 10-16-2021 Episodic Immunizations and screening for infectious disease (1 source) Encounter for screening for human papillomavirus (HPV); Translations: [ENC SCREENING HUMAN PAPILLOMAVIRUS] Onset: 07-02-2021 Episodic Inflammatory diseases of female pelvic organs (1 source) 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 adhesions (postinfective); Translations: [FE PELV PERITON ADHES POSTINFECTIVE] Onset: 09-07-2021 Episodic Mood disorders (1 source) Depressive disorder 10-16-2021 Chronic Other female genital disorders (5 sources) Abnormal uterine and vaginal bleeding, unspecified; Translations: [ABNORMAL UTERINE VAGINAL BLEED UNS] Onset: 07-14-2021 Chronic Other female genital disorders (1 source) Dysplasia of cervix uteri, unspecified; Translations: [DYSPLASIA CERVIX UTERI UNSPECIFIED] Onset: 09-07-2021 Episodic Other screening for suspected conditions (not mental disorders or infectious disease) (1 source) Abnormal findings on diagnostic imaging of other specified body structures; Translations: [ABNORML FIND DX IMG OTH BODY STRUC] Onset: 09-07-2021 Chronic Other screening for suspected conditions (not mental disorders or infectious disease) (4 sources) Encounter for screening for malignant neoplasm of cervix; Translations: [ENC SCREENING MALIG NEOPLASM CERV] Onset: 06-30-2021 Episodic Prolapse of female genital organs (1 source) Uterovaginal prolapse, unspecified; Translations: [UTEROVAGINAL PROLAPSE UNSPECIFIED] Onset: 09-07-2021 Chronic Residual codes; unclassified (1 source) Acquired absence of other specified parts of digestive tract; Translations: [ACQ ABSENCE OTH PART DIGESTV TRACT] Onset: 09-07-2021 Episodic Residual codes; unclassified (1 source) Family history of malignant neoplasm of other genital organs; Translations: [FAM HX MALIG NEOPLSM OTH GENIT ORGN] Onset: 09-07-2021 Episodic Substance-related disorders (1 source) Nicotine dependence, cigarettes, uncomplicated; Translations: [NICOTINE DEPEND CIGARETTES UNCOMP] Onset: 09-07-2021 Chronic Unclassified (1 source) Finding of sensation of bladder 10-16-2021 Results Test Name Value Interpretation Reference Range Facil ity Pre-Certification Formon Pre-Certification Form [id number] CD:127 Normal [facility] Physician Referralon 022 Physician Referral [id number] D:127 Normal [facility] Ambulatory Visit Summaryon 0 10-16-2021 Ambulatory Visit Summary MARTA MORALEZ :1970 Visit Date:10/16/2021 Ambulatory Visit Instructions Your Diagnosis Feeling of incomplete bladder emptying Stress incontinence Tests Performed Urnls Dip Stick Auto w/o Microscopy POC 60824 Your Care Team Attending Physician - Rober SANDHU, Crystal Pierce Primary Care Physician - Alan BRAVO MD Referring Physician - Alan BRAVO MD This Is Your Medications List Contact prescribing physician if questions or concerns acetaminophen-diphenhyd rAMINE (Tylenol PM) Procedures Performed Diagnostic laparoscopy (08/2021), Dilation and curettage of uterus (08/2021), Cholecystectomy (2014), Tubal ligation (2004). Discharge Vitals Heart Rate (Peripheral) 87 Respiratory Rate 16 Blood Pressure 180/92 Height 172 cm Height 172.0 cm Weight 102 kg Weight 102.0 kg BMI 34.48 What to do next You Need to Schedule the Following Appointments Follow Up with Rober SANDHU, Crystal Pierce, URL, URO When: Where: [address] [place] [phone] Medications What How Much When Instructions Unchanged acetaminophen-diphenhyd rAMINE (Tylenol PM) Once a day (at bedtime) Contact prescribing physician if questions or concerns Test Results Urnls Dip Stick Auto w/o Microscopy POC 09170 (10/16/2021) Bilirubin Urine Dipstick - Negative Blood Urine Dipstick - Negative Glucose Urine Dipstick - Negative Ketones Urine Dipstick - Negative Leukocytes Urine Dipstick - 1+ Small Nitrite Urine Dipstick - Negative Protein Urine Dipstick - Negative Specific [place] Urine Dipstick - <=1.005 Urine Appearance Urine Dipstick - Clear Urine Color Urine Dipstick - Yellow Urobilinogen Urine Dipstick - Normal 0.2-1 EU/dl pH Urine Dipstick - 6 Allergies No Known Allergies Problems Ongoing - Any problem that you are currently receiving treatment for. Depression Feeling of incomplete bladder emptying Stress incontinence Education Materials Urodynamic Testing What is urodynamic testing? Urodynamic tests are done to determine how well your lower urinary tract is working. The lower urinary tract includes your bladder and the part of your body that drains urine from the bladder (urethra). When your kidneys filter your blood, urine is stored in your bladder until you feel the urge to urinate. Urination requires coordination between the nerves and muscles of your bladder and urethra. When your lower urinary tract is working well, you should be able to: ? Start urinating when your bladder is full. ? Empty your bladder completely. ? Control the flow of your urine. Why do I need urodynamic testing? You may need urodynamic testing to help find the cause of any of these problems: ? Leaking urine (incontinence). ? Problems starting or stopping your urine flow. ? Frequent or painful urination. ? Frequent urinary tract infections. ? Being unable to empty your bladder completely. ? Having strong urges to pass urine (urgency). ? Having a weak flow of urine. How do I prepare for the tests? ? Ask your health care provider about changing or stopping your regular medicines. This is especially important if you are taking diabetes medicines or blood thinners. ? You may be asked to avoid urinating before coming to the test so that you arrive with a full bladder. ? Tell a health care provider about: ? Any allergies you have. ? All medicines you are taking, including vitamins, herbs, eye drops, creams, and zciu-yor-iujwudv medicines. ? Whether you are or may be . What are the risks of this testing? Generally, these tests are safe. However, some of the tests have risks, including: ? Discomfort. ? Frequent urge to urinate. ? Bleeding. ? Infection. ? Allergic reactions to medicines or dyes (contrast material). How is urodynamic testing done? You may have various urodynamic tests. The tests may be done separately or may all be done during one testing visit. You may be given an antibiotic medicine before or after testing to help prevent infection. The types of tests that may be done include: Uroflowmetry This test measures how much urine you pass and how long it takes to pass. ? You will urinate into a certain type of toilet or device (flowmeter). ? The device will measure the volume and the time of your urine flow. ? These measurements will be sent to a computer that creates a graph of your urine flow. Postvoid residual measurement This test measures how much urine is left in your bladder after you urinate. ? The test may be done with ultrasound. In this method, sound waves and a computer will be used to create an image of your bladder. ? The test can also be done by inserting a thin, flexible tube (catheter) into your bladder after you urinate. The remaining urine will be removed through the catheter so it can be measured. ? Rem (more content not included)... Normal [facility] Patient Educationon 10-17-19 Patient Education Urology Urodynamic Testing What is urodynamic testing? Urodynamic tests are done to determine how well your lower urinary tract is working. The lower urinary tract includes your bladder and the part of your body that drains urine from the bladder (urethra). When your kidneys filter your blood, urine is stored in your bladder until you feel the urge to urinate. Urination requires coordination between the nerves and muscles of your bladder and urethra. When your lower urinary tract is working well, you should be able to: ? Start urinating when your bladder is full. ? Empty your bladder completely. ? Control the flow of your urine. Why do I need urodynamic testing? You may need urodynamic testing to help find the cause of any of these problems: ? Leaking urine (incontinence). ? Problems starting or stopping your urine flow. ? Frequent or painful urination. ? Frequent urinary tract infections. ? Being unable to empty your bladder completely. ? Having strong urges to pass urine (urgency). ? Having a weak flow of urine. How do I prepare for the tests? ? Ask your health care provider about changing or stopping your regular medicines. This is especially important if you are taking diabetes medicines or blood thinners. ? You may be asked to avoid urinating before coming to the test so that you arrive with a full bladder. ? Tell a health care provider about: ? Any allergies you have. ? All medicines you are taking, including vitamins, herbs, eye drops, creams, and ctex-xyq-fgjfjdw medicines. ? Whether you are or may be . What are the risks of this testing? Generally, these tests are safe. However, some of the tests have risks, including: ? Discomfort. ? Frequent urge to urinate. ? Bleeding. ? Infection. ? Allergic reactions to medicines or dyes (contrast material). How is urodynamic testing done? You may have various urodynamic tests. The tests may be done separately or may all be done during one testing visit. You may be given an antibiotic medicine before or after testing to help prevent infection. The types of tests that may be done include: Uroflowmetry This test measures how much urine you pass and how long it takes to pass. ? You will urinate into a certain type of toilet or device (flowmeter). ? The device will measure the volume and the time of your urine flow. ? These measurements will be sent to a computer that creates a graph of your urine flow. Postvoid residual measurement This test measures how much urine is left in your bladder after you urinate. ? The test may be done with ultrasound. In this method, sound waves and a computer will be used to create an image of your bladder. ? The test can also be done by inserting a thin, flexible tube (catheter) into your bladder after you urinate. The remaining urine will be removed through the catheter so it can be measured. ? Remaining urine will be measured in milliliters (mL). If you have more than 100 mL left in your bladder after you urinate, your bladder is not emptying as it should. Cystometric testing This test uses a type of bladder catheter that can measure pressure. ? You may be given a medicine to numb the area (local anesthetic). ? The area around the opening of your urethra will be cleaned. ? A urinary catheter will be passed through your urethra into your bladder and used to empty your bladder completely. ? Then a measuring catheter will be placed, and your bladder will be filled with warm, germ-free (sterile) water. ? Pressure measurements will be taken: ? As your bladder fills. ? When you feel the need to urinate. ? As your bladder is emptied. ? You may be asked to cough or bear down to check for leakage. ? In some cases, your bladder may be filled with a material that shows up on X-rays (contrast material) so that X-ray pictures can be taken during the test. Electromyogram This test measures the electrical activity of the nerves and muscles of your bladder and the opening of your urethra. ? Sticky patches (electrodes) will be placed near your rectum and urethra to measure electrical activity. ? The measurements will show how well your nerves are communicating with your muscles. What happens after the testing? ? You should be able to go home right away and do your usual activities. ? You may be told to drink a glass of water every 30 minutes for the first 2 hours after testing. ? Taking a warm bath or using warm, wet cloths (warm compresses) may relieve any discomfort near your urethra. ? Contact your health care provider if you have: ? Pain. ? Blood in your urine. ? Chills. ? Fever. What do the results mean? Talk with your health care provider about what your results mean. Some common causes for abnormal results from urodynamic tests include: ? Enlarged prostate in men. ? Overactive bladder. ? Urinary tract infection. ? Nervous system diseases. (more content not included)... Normal [facility] PREG HCG QUALon 08-14-2021 , QUAL Negative Normal NEGATIVE [facility] Comment on above: Performed By: #### P REG #### [facility] [address] [place] [address] Dr. Thom Gonzalez US PELVIS AND TRANSVAGon US PELVIS AND TRANSVAG EXAMINATION: US PELVIS AND TRANSVAG HISTORY: Abnormal uterine bleeding unrelated to menstrual cycle COMPARISON: No relevant comparison available. TECHNIQUE: Transabdominal and transvaginal sonographic examination. FINDINGS: UTERUS: Normal size and appearance. Uterus size: 9.4 x 4.7 x 5.3 cm ENDOMETRIUM: Thickened but homogeneous echotexture. Endometrial thickness: 10 mm RIGHT OVARY: Not seen. No suspicious adnexal findings. LEFT OVARY: Not seen. No suspicious adnexal findings. CUL-DE-SAC: Unremarkable. No significant free fluid. BLADDER: Unremarkable. OTHER: None. IMPRESSION: 1. Endometrium is 10 mm in thickness, which is abnormally thickened for a postmenopausal patient, but is still within normal limits if patient is premenopausal. 2. No appreciable endometrial mass, polyps, or suspicious echogenicity. Electronically authenticated by: KAIT ELMORE Date: 2021-07-10 09:07 Normal [facility] PAP ACOG PANEL 2: 30 to 65on 07-06-2021 . . Normal [facility] Comment on above: Result Comment: Perf ormed at: WB Performed By: #### [id number] #### [facility] [address] [place] [address] Dr. Thom Gonzalez Age Gdln ACOG Testing - Normal [facility] Comment on above: Performed By: #### [id number] #### [facility] [address] [address] [address] Thom Gonzalez DIAGNOSIS: Comment Normal [facility] Comment on above: Result Comment: NEGA TIVE FOR INTRAEPITHELIAL LESION OR MALIGNANCY. Performed at: WB Performed By: #### [id number] #### [facility] [address] [address] [address] Thom Gonzalez HPV Aptima Negative Normal Negative [facility] Comment on above: Result Comment: This nucleic acid amplification test detects fourteen high-risk HPV types (16,18,31,33,35,39,45,51,52,56,58,59,66,68) without differentiation. Performed at: =G Performed By: #### [id number] #### [facility] [address] [address] [address] Thom Gonzalez Methodology: Comment Normal [facility] Comment on above: Result Comment: This liquid based ThinPrep(R) pap test was screened with the use of an image guided system. Performed at: WB Performed By: #### [id number] #### [facility] [address] [address] [address] Thom Gonzalez Note: Comment Normal [facility] Comment on above: Result Comment: The Pap smear is a screening test designed to aid in the detection of premalignant and malignant conditions of the uterine cervix. It is not a diagnostic procedure and should not be used as the sole means of detecting cervical cancer. Both false-positive and false-negative reports do occur. . Performed at: WB Performed By: #### [id number] #### [facility] [address] [place] [address] Dr. Thom Gonzalez Performed by: Comment Normal [facility] Comment on above: Result Comment: Lesvia Irizarry Cannon Crewmember (ASCP) Performed at: WB Performed By: #### [id number] #### [facility] [address] [place] [address] Dr. Thom Gonzalez Specimen adequacy: Comment Normal [facility] Comment on above: Result Comment: Sati sfactory for evaluation. Endocervical and/or squamous metaplastic cells (endocervical component) are present. Performed at: WB Performed By: #### [id number] #### [facility] [address] [place] [address] Dr. Thom Gonzalez Vital Signs Date Time Vital Sign Value Performing Clinician Alondra irving 10-16-2021 14:01-0400 Blood Pressure Location Crystal Parrishe [facility] 10-16-2021 14:01-0400 Diastolic blood pressure 92 mm[Hg] Crystal Lue [facility] 10-16-2021 14:01-0400 Heart rate 87 /min Crystal Lue [facility] 10-16-2021 14:01-0400 Respiratory rate 16 /min Crystal Lue [facility] 10-16-2021 14:-0400 Systolic blood pressure 180 mm[Hg] Crystal Richter [facility] Encounters Encounter Date Encounter Type Care Provider Facility Start: 04-11-2023 End: 04-11-2023 ambulatory MANNY SIBLEY Not Available Start: 10-16-2021 End: 10-16-2021 Patient encounter procedure Crystal Richter [facility] Start: 08-14-2021 End: 08-14-[address] ALAN BRAVO Facility:[facility] Start: 08-11-[address] ALAN BRAVO [facility] lity:[facility] Start: 08-05-2021 Encounter for other preprocedural examination DR ALAN BRAVO [facility] Start: 08-03-2021 End: 08-04-[address] ALAN BRAVO Facility:[facility] Start: 08-03-2021 End: 08-04-2021 Encounter for other preprocedural examination DR ALAN BRAVO Facility:[facility] Start: 07-10-2021 End: 07-11-[address] ALAN BRAVO Facility:[facility] Start: 06-30-2021 End: 06-30-[address] ALAN BRAVO Facility:[facility] Procedures Date Procedure Procedure Detail Performing Clinician Start: 08-02-2021 Diagnostic laparoscopy Crystal Parrishwilliam Start: 08-02-2021 Dilation and curetta ge of uterus Crystal Parrishe Start: 04-04-2014 Cholecystectomy Crystal Darling ue Start: 04-04-2004 Ligation of fallopian tube Crystal Parrishe Payers Date Payer Category Payer Unknown [id number] 2.16.84 [id number] 1970 Unknown [id number] 2.16.84 [id number] 1970 Unknown [id number] 2.16.84 [id number] 1970 Unknown [id number] 2.16.84 [id number] 1970 Unknown [id number] 2.16.84 [id number] 1970 Unknown [id number] 2.16.84 [id number] 1960 Unknown [id number] Social History Date Type Detail Facility Start: 10-16-2021 Tobacco smoking status Light t obacco smoker (finding) [facility] Sex Assigned At Female [facility] [place] Functional Status Date Assessment Result Facility 10-16-2021 Functional Status N/A [facility] Clinical Note 10-16-2021 Note Date & Type Note Facility 10-16-[address] Bravo referral HPI Staff This is a 51 year old female referred by Dr. Bravo for urgency. PVR 253mL. Pain with urination:No Blood in urine:No Incomplete bladder emptying:Pt. states she does not feel empty Frequency:No Urgency:No Nocturia:No Hesitancy:yes Urination requires straining:yes Stream:weak stream, Pt. states the first urination of the day will be very bubbly Stream starts and stops:yes Leaking before getting to the restroom:No Urinary incontinence without sensory awareness:No Temporarily unable to restrain urination with body movement:yes Wearing pad/Depends:No Flank/Back pain:occasionally will have lower back pain Abdominal pain:Occasionally bilateral groin pain History of Present Illness I have reviewed and verified the staff HPI to be accurate for this encounter. Reviewed referral notes and new patient paperwork. Review of Systems ROS - Provider Constitutional: denies weight loss, denies hot flashes. Eyes: denies eye problems. Gastrointestinal: denies nausea, denies vomiting. Cardiovascular: denies chest pain or angina. Integumentary: no dryness Musculoskeletal: denies musculoskeletal symptoms. ENMT: denies otolaryngeal symptoms. Respiratory: no shortness of breath. Heme/Lymph: denies easy bleeding tendency, denies easy bruising tendency. Psychiatric: no confusion, no anxiety. Genitourinary: See HPI Physical Exam Vitals & Measurements HR: 87(Peripheral) RR: 16 BP: 180/92 HT: 172 cm HT: 172.0 cm WT: 102 kg WT: 102.0 kg BMI: 34.48 General Appearance: alert , no acute distress, well nourished, well developed female. Head: normocephalic . Eyes: normal orbit and globe. ENMT: normal examination of external ears. Chest: symmetric chest rise, respirations non labored . Cardiovascular: regular rate and rhythm. Abdomen: soft, non distended, no tenderness Genitourinary: bladder nonpalpable, no flank tenderness. Skin: warm, dry, no bruising. Psychiatric: cooperative, affect appropriate for age, normal judgement, euthymic mood. Assessment/Plan 51-year-old female with a history of feeling of incomplete bladder emptying, weak stream and straining for over a year. 1. Feeling of incomplete bladder emptying (R39.14: Feeling of incomplete bladder emptying) For over 1 year, lost insurance and now reestablishing medical care. Recently underwent diagnostic laparoscopy, hysteroscopy, D&C for possible endometriosis. Postop had elevated PVR, patient without sensation of needing to void. States voids every 3 hours throughout the day, no nocturia. PVR 253mL. Pt states that she has to strain to void. Pt states that she does not have a steady stream, seems more like a dribble with hesitancy and start stop stream. Previously with recurrent UTIs possibly pyelonephritis. For the past few years, she has not had any UTIs. Denies known history of stones or prior urologic procedures. -Discussed recommendation for timed voiding daily q2-3 hours given incomplete emptying and recommendation for CIC. Given patient without recent recurrent UTIs or other symptoms, we will continue to monitor as she does not want to CIC. -Recommend re-establishing with PCP for annual wellness checkup as she notes insomnia, diffuse pitting edema, unsure of diabetes or other medical issues. Blood pressure elevated today however states her blood pressure is always low, therefore machine must be broken. Denies symptoms of headache or vision changes -Complete voiding diary for further evaluation as well as cystoscopy for potential stricture. We will determine need for renal ultrasound and urodynamics based on cystoscopy findings and review of recent labs. -Obtain outside labs of [facility] to eval renal function. If elevated will need renal ultrasound. Will schedule Cystoscopy. The risks and benefits for cystoscopy have been discussed. The risks include bleeding, infection, and irritation of the bladder and urinary channel, among others. The patient, after being informed of procedural details and after questions have been answered, wishes to proceed. Full informed consent has been obtained. Will order Local anesthesia. 2. Stress incontinence (N39.3: Stress incontinence (female) (male)) mild, with cough, standing and sneezing. Denies urge incontinence. Discussed potential etiologies for stress incontinence and recommendations for timed voiding, bowel regimen, weight loss and pelvic floor exercises. No evidence of pelvic organ prolapse or stress incontinence on exam by . Will perform pelvic exam at time of cystoscopy as above. Follow-up With When Contact Information Crystal Richter MD, URL, URO [address] [facility], [place] [address]- [phone] Additional Instructions: Patient Education Urodynamic Testing Aurelia Myles personally scribed for _ on 10/16/2021 15:26:15. . Documentation recorded by the Aurelia hayes a (more content not included)... [facility] Comment on above: Result Comment: Elec tronically Signed By: Crystal Richter MD\.br\Date and Time Signed: 10/16/21 18:50 EDT Hospital Discharge instructions 10-16-2021 Note Date & Type Note Facility 10-16-2021 Hospital Discharg e instructions Patient Education 10/16/2021 15:10:07 Urodynamic Testing Urodynamic Testing What is urodynamic testing? Urodynamic tests are done to determine how well your lower urinary tract is working. The lower urinary tract includes your bladder and the part of your body that drains urine from the bladder (urethra). When your kidneys filter your blood, urine is stored in your bladder until you feel the urge to urinate. Urination requires coordination between the nerves and muscles of your bladder and urethra. When your lower urinary tract is working well, you should be able to: Start urinating when your bladder is full. Empty your bladder completely. Control the flow of your urine. Why do I need urodynamic testing? You may need urodynamic testing to help find the cause of any of these problems: Leaking urine (incontinence). Problems starting or stopping your urine flow. Frequent or painful urination. Frequent urinary tract infections. Being unable to empty your bladder completely. Having strong urges to pass urine (urgency). Having a weak flow of urine. How do I prepare for the tests? Ask your health care provider about changing or stopping your regular medicines. This is especially important if you are taking diabetes medicines or blood thinners. You may be asked to avoid urinating before coming to the test so that you arrive with a full bladder. Tell a health care provider about: ?Any allergies you have. ?All medicines you are taking, including vitamins, herbs, eye drops, creams, and wvmr-ldb-wxjwigj medicines. ?Whether you are or may be . What are the risks of this testing? Generally, these tests are safe. However, some of the tests have risks, including: Discomfort. Frequent urge to urinate. Bleeding. Infection. Allergic reactions to medicines or dyes (contrast material). How is urodynamic testing done? You may have various urodynamic tests. The tests may be done separately or may all be done during one testing visit. You may be given an antibiotic medicine before or after testing to help prevent infection. The types of tests that may be done include: Uroflowmetry This test measures how much urine you pass and how long it takes to pass. You will urinate into a certain type of toilet or device (flowmeter). The device will measure the volume and the time of your urine flow. These measurements will be sent to a computer that creates a graph of your urine flow. Postvoid residual measurement This test measures how much urine is left in your bladder after you urinate. The test may be done with ultrasound. In this method, sound waves and a computer will be used to create an image of your bladder. The test can also be done by inserting a thin, flexible tube (catheter) into your bladder after you urinate. The remaining urine will be removed through the catheter so it can be measured. Remaining urine will be measured in milliliters (mL). If you have more than 100 mL left in your bladder after you urinate, your bladder is not emptying as it should. Cystometric testing This test uses a type of bladder catheter that can measure pressure. You may be given a medicine to numb the area (local anesthetic). The area around the opening of your urethra will be cleaned. A urinary catheter will be passed through your urethra into your bladder and used to empty your bladder completely. Then a measuring catheter will be placed, and your bladder will be filled with warm, germ-free (sterile) water. Pressure measurements will be taken: ?As your bladder fills. ?When you feel the need to urinate. ?As your bladder is emptied. You may be asked to cough or bear down to check for leakage. In some cases, your bladder may be filled with a material that shows up on X-rays (contrast material) so that X-ray pictures can be taken during the test. Electromyogram This test measures the electrical activity of the nerves and muscles of your bladder and the opening of your urethra. Sticky patches (electrodes) will be placed near your rectum and urethra to measure electrical activity. The measurements will show how well your nerves are communicating with your muscles. What happens after the testing? You should be able to go home right away and do your usual activities. You may be told to drink a glass of water every 30 minutes for the first 2 hours after testing. Taking a warm bath or using warm, wet cloths (warm compresses) may relieve any discomfort near your urethra. Contact your health care provider if you have: ?Pain. ?Blood in your urine. ?Chills. ?Fever. What do the results mean? Talk with your health care provider about what your results mean. Some common causes for abnormal results from urodynamic tests include: Enlarged prostate in men. Overactive bladder. Urinary tract infection. Nervous system diseases. Spinal cord damage. Questions to ask your health care provider Ask your health care provider, or the department that is doing the test: When will my results be ready? How will I get my results? What are my treatment options? What other tests do I need? What are my next steps? Summary Urodynamic tests are done to determine how well your lower urinary tract is working. The lower urinary tract includes your bladder and urethra. You may need urodynamic testing to help find the cause of various problems with urination, such as leaking urine (incontinence) or problems starting or stopping your urine flow. You may have various urodynamic tests. The tests may be done separately or may all be done during one testing visit. Talk with your health care provider about what your results mean. Contact your health care provider if you have pain, chills, a fever, or blood in your urine. This information is not intended to replace advice given to you by your health care provider. Make sure you discuss any questions you have with your health care provider. Document Released: 01/16/2008 Document Revised: 07/10/2019 Document Reviewed: 01/23/2018 [employer] Patient Education 2020 Alma Johns. Follow Up Care 10/08/2021 10:43:51 With:Rober SANDHU, VIRGIL Quinones, URO Address: [address], [place] [address] [phone] When: Unknown [facility] Evaluation + Plan note Note Date & Type Note Facility Evaluation + Plan note No data available for this section [facility] Progress note Note Date & Type Note Facility Progress note No data available for this section [facility] Summary Purpose Family History No Family History Records FoundNo Family History Records FoundNo Family History Records Found Advance Directives No Advanced Directives Records FoundNo Advanced Directives Records FoundNo Advanced Directives Records Found Additional Source Comments INFORMATION SOURCE (unrecogn ized section and content) DATE CREATED AUTHOR 09/08/2021 [facility] DATE CREATED AUTHOR AUTHOR'S ORGANIZ ATION 10/26/2021 Saad Coker [facility] DATE CREATED AUTHOR AUTHOR'S ORGANIZ ATION 04/12/2023 [facility] Special[facility] Care Team (unrecognized sect ion and content) Personnel Name: Alan BRAVO MD Address: [address] [place] [address], [address] FOR RECORDS PERTAINING TO PATIENTS WHO ARE OR HAVE BEEN ENROLLED IN A CHEMICAL DEPENDENCY/SUBSTANCEABUSE PROGRAM, SOME INFORMATION MAY BE OMITTED. This clinical summary was aggregated from multiple sources. Caution should be exercised in using it in the provision of clinical care. This summary normalizes information from multiple sources, and as a consequence, information in this document may materially change the coding, format and clinical context of patient data. In addition, data may be omitted in some cases. CLINICAL DECISIONS SHOULD BE BASED ON THE PRIMARY CLINICAL RECORDS. [facility] [employer] [facility]. provides no warranty or guarantee of the accuracy or completeness of information in this document.
--- NOTE | 2023-04-29 12:36 | ECG_ITS ---
[facility] Test Date: 2023-04-29 Pat Name: MARTA MORALEZ Department: Room: - Gender: Female Manager Client Support: : 1970 Requested By: MANNY SIBLEY Order Number: [id number] Reading MD: JENNY REED Measurements Intervals [place] Rate: 54 P: 68 TN: 183 QRS: 76 QRSD: 89 T: 74 QT: 454 QTc: 431 Interpretive Statements SINUS BRADYCARDIA No previous ECG available for comparison Electronically Signed On 05-01-2023 10:38:49 EST by JENNY REED
[2023-04-29 13:50] LABS: Basophils Absolute Auto 0.1 10^3/uL (0.0-0.1); Basophils Percent Auto 0.7 % (0.2-2.0); Eosinophils Absolute Auto 0.2 10^3/uL (0.0-0.7); Eosinophils Percent Auto 2.2 % (0.9-7.0); Hematocrit 39.3 % (36.0-48.0); Hemoglobin 13.1 g/dL (12.0-16.0); Immature Granulocytes Abs Auto 0.02 10^3/uL (0.00-0.03); Immature Granulocytes Pct Auto 0.2 % (0.0-0.5); Lymphocytes Percent Auto 24.7 % (20.5-60.0); Mean Corpuscular HGB Conc 33.3 g/dL (29.9-35.2); Mean Corpuscular Hemoglobin 31.5 pg (26.7-34.0); Mean Corpuscular Volume 94.5 fL (81.0-99.0); Mean Platelet Volume 9.7 fL (9.5-13.5); Monocytes Absolute Auto 0.6 10^3/uL (0.3-0.8); Monocytes Percent Auto 7.6 % (1.7-12.0); Neutrophils Absolute Auto 5.2 10^3/uL (1.4-6.5); Neutrophils Percent Auto 64.6 % (43.0-75.0); Platelet Count 249 10^3/uL (150-450); Red Blood Count 4.16 10^6/uL (4.20-5.40); Red Cell Distribution Width 14.5 % (11.0-15.0); White Blood Count 8.1 10^3/uL (4.0-11.0)
[2023-04-29 14:03] LABS: INR 0.95; Partial Thromboplastin Time 28.4 sec (22.3-36.2); Prothrombin Time 10.1 sec (9.0-11.6)
[2023-04-29 14:04] LABS: Alanine Aminotransferase 26 U/L (14-59); Albumin Globulin Ratio 0.9; Albumin Level 3.5 g/dL (3.4-5.0); Alkaline Phosphatase 66 U/L (46-116); Anion Gap 11.9; Aspartate Amino Transferase 27 U/L (15-37); BUN Creatinine Ratio 13.3; Bilirubin Direct 0.1 mg/dL (0.0-0.2); Bilirubin Total 0.3 mg/dL (0.2-1.0); Carbon Dioxide 27.8 mmol/L (21.0-32.0); Chloride 105 mmol/L (98-107); Estimated GFR (African America >60 (>=60); Estimated GFR (Non-African Ame >60 (>=60); Globulin 3.7 g/dL; Glucose 86 mg/dL (74-106); Potassium 3.7 mmol/L (3.5-5.1); Sodium 141 mmol/L (136-145); Total Protein 7.2 g/dL (6.4-8.2)
== END 2023-04-29 12:32 | disposition home or self-care (01) ==
LOC: PST 12:32
PROVIDERS: PCP Nurse Practitioner Primary Care; Visit Provider Obstetrics & Gynecology
DX: Z01.812 Encounter for preprocedural laboratory examination (principal); Z01.810 Encounter for preprocedural cardiovascular examination; N92.0 Excessive and frequent menstruation with regular cycle; R10.2 Pelvic and perineal pain; N94.6 Dysmenorrhea, unspecified
CPT/HCPCS: 80048; 80076; 85025; 85610; 85730; 86850; 86900; 86901; 93005

== ENCOUNTER 2023-05-05 11:18 | Day surgery (SDC) | payer BC, SELFPAY ==
[2023-04-29 13:03] VITALS: BP 122/71; PULSE 73; RESP 20; TEMP 36.2; O2SAT 98; BMI 22.9
[2023-05-05] VITALS (32 sets, daily range): BP systolic 88–129; BP diastolic 46–76; PULSE 50–88; RESP 6–21; TEMP 35.7–36.1; O2SAT 88–98
--- OUTSIDE RECORDS SUMMARY | 2023-05-05 11:22 | XMS_ITS | CCD ---
Author Name Unknown Address [address] [place] [address] Organization [facility] Care Team Providers Care Heart Nurse Name Role Phone SASHA, DR ASH Admitting [...] Consulting Unavailable KARASIK, Alan Primary Care Physician [phone] MANNY SIBLEY Attending Unavailable Medications Current Medications [...] procedure, # 2 cap(s), Refills(s) 0, Pharmacy: [email or web address], 172, cm, 10/16/21 14:14:00 EDT, Height/Length [...] Range Facil ity Pre-Certification Formon Pre-Certification Form [id number]#[id number] CD:127 Normal [facility] Physician Referralon 022 Physician Referral [id number] D:127 Normal [facility] Ambulatory Visit Summaryon 0 10-16-2021 Ambulatory Visit Summary MARTA MORALEZ :1970 Visit Date:10/16/2021 Ambulatory Visit Instructions Your Diagnosis Feeling of incomplete bladder emptying Stress incontinence Tests Performed Urnls Dip Stick Auto w/o Microscopy POC 23137 Your Care Team Attending Physician - Rober [...] Pierce, URL, URO When: Where: [address] [place] [phone] Medications What How Much When Instructions Unchanged acetaminophen-diphenhyd rAMINE (Tylenol PM) Once a day (at bedtime) Contact prescribing physician if questions or concerns Test Results Urnls Dip Stick Auto w/o Microscopy POC 83078 (10/16/2021) Bilirubin Urine Dipstick - Negative Blood Urine Dipstick - Negative Glucose Urine Dipstick - Negative Ketones Urine Dipstick - Negative Leukocytes Urine Dipstick - 1+ Small Nitrite Urine Dipstick - Negative Protein Urine Dipstick - Negative Specific Noble Urine Dipstick - <=1.005 Urine Appearance Urine [...] including vitamins, herbs, eye drops, creams, and fydk-aku-vxaslon medicines. ? Whether you are or may [...] ? Rem (more content not included)... Normal [facility] Patient Educationon 10-17-19 Patient Education Urology Urodynamic [...] including vitamins, herbs, eye drops, creams, and ifpd-qhd-kwinsnq medicines. ? Whether you are or may [...] system diseases. (more content not included)... Normal [facility] PREG HCG QUALon 08-14-2021 , QUAL Negative Normal NEGATIVE [facility] Comment on above: Performed By: #### P REG #### [facility] [address] [place] [address] Dr. Thom Gonzalez US PELVIS AND TRANSVAGon [...] by: KAIT ELMORE Date: 2021-07-10 09:07 Normal [facility] PAP ACOG PANEL 2: 30 to 65on 07-06-2021 . . Normal [facility] Comment on above: Result Comment: Perf ormed at: WB Performed By: #### [id number] #### [facility] [address] [place] [address] Dr. Thom Gonzalez Age Gdln ACOG Testing - Normal [facility] Comment on above: Performed By: #### [id number] #### [facility] [address] [address] [address] Thom Gonzalez DIAGNOSIS: Comment Normal [facility] Comment on above: Result Comment: NEGA TIVE FOR INTRAEPITHELIAL LESION OR MALIGNANCY. Performed at: WB Performed By: #### 4 [id number] #### [facility] [address] [address] [address] Thom Gonzalez HPV Aptima Negative Normal Negative [facility] Comment on above: Result Comment: This nucleic acid amplification test detects fourteen high-risk HPV types (16,18,31,33,35,39,45,51,52,56,58,59,66,68) without differentiation. Performed at: =G Performed By: #### 4 [id number] #### [facility] [address] [address] [address] Thom Gonzalez Methodology: Comment Normal [facility] Comment on above: Result Comment: This liquid based ThinPrep(R) pap test was screened with the use of an image guided system. Performed at: WB Performed By: #### 4 [id number] #### [facility] [address] [address] [address] Thom Gonzalez Note: Comment Normal [facility] Comment on above: Result Comment: The Pap smear is a screening test designed to aid in the detection of premalignant and malignant conditions of the uterine cervix. It is not a diagnostic procedure and should not be used as the sole means of detecting cervical cancer. Both false-positive and false-negative reports do occur. . Performed at: WB Performed By: #### [id number] #### [facility] [address] [place] [address] Dr. Thom Gonzalez Performed by: Comment Normal [facility] Comment on above: Result Comment: Lesvia Irizarry Discount Clerk (ASCP) Performed at: WB Performed By: #### [id number] #### [facility] [address] [place] [address] Dr. Thom Gonzalez Specimen adequacy: Comment Normal [facility] Comment on above: Result Comment: Sati sfactory for evaluation. Endocervical and/or squamous metaplastic cells (endocervical component) are present. Performed at: WB Performed By: #### [id number] #### [facility] [address] [place] [address] Dr. Thom Gonzalez Vital Signs Date Time Vital Sign Value Performing Clinician Alondra irving 10-16-2021 14:01-0400 Blood Pressure Location Crystal Parrishe [facility] 10-16-2021 14:01-0400 Diastolic blood pressure 92 mm[Hg] Crystal Lue [facility] 10-16-2021 14:01-0400 Heart rate 87 /min Crystal Lue [facility] 10-16-2021 14:01-0400 Respiratory rate 16 /min Crystal Lue [facility] 10-16-2021 14:-0400 Systolic blood pressure 180 mm[Hg] Crystal Richter [facility] Encounters Encounter Date Encounter Type Care Provider Facility Start: 04-11-2023 End: 04-11-2023 ambulatory MANNY SIBLEY Not Available Start: 10-16-2021 End: 10-16-2021 Patient encounter procedure Crystal Richter [facility] [place] Start: 08-14-2021 End: 08-14-[address] ALAN BRAVO Facility:[facility]1 Start: 08-11-[address] ALAN BRAVO [facility] lity:H1 Start: 08-05-2021 Encounter for other preprocedural examination DR ALAN BRAVO [facility] Start: 08-03-2021 End: 08-04-[address] ALAN [...] Parrishe Payers Date Payer Category Payer Unknown [id number] 2.16.84 [id number] 1970 Unknown [id number] 2.16.84 [id number] 1970 Unknown [id number] 2.16.84 [id number] 1970 Unknown [id number] 2.16.84 [id number] 1970 Unknown [id number] 2.16.84 [id number] 1970 Unknown [id number] 2.16.84 [id number] 1960 Unknown [id number] Social History Date Type Detail Facility Start: 10-16-2021 Tobacco smoking status Light t obacco smoker (finding) [facility] Sex Assigned At Female [facility] [place] Functional Status Date Assessment Result Facility 10-16-2021 Functional Status N/A [facility] Clinical Note 10-16-2021 Note Date & Type [...] of recent labs. -Obtain outside labs of [facility] to eval renal function. If elevated [...] Contact Information Crystal Richter MD, URL, URO [address] [facility], [place] [address]- [phone] Additional Instructions: Patient Education Urodynamic Testing Aurelia Myles personally scribed for _ on 10/16/2021 15:26:15. . Documentation recorded by the Aureila hayes a (more content not included)... [facility] Comment on above: Result Comment: Elec tronically [...] including vitamins, herbs, eye drops, creams, and yxhq-dix-scqjbcw medicines. ?Whether you are or may be [...] 01/16/2008 Document Revised: 07/10/2019 Document Reviewed: 01/23/2018 [employer] Patient Education 2020 [employer]. Follow Up Care 10/08/2021 10:43:51 With:Rober SANDHU, VIRGIL Quinones, URO Address: [address], [place] [phone] When: Unknown [facility] Evaluation + Plan note Note Date & Type Note Facility Evaluation + Plan note No data available for this section [facility] Progress note Note Date & Type Note Facility Progress note No data available for this section [facility] Summary Purpose Family History No Family History Records FoundNo Family History Records FoundNo Family History Records Found Advance Directives No Advanced Directives Records FoundNo Advanced Directives Records FoundNo Advanced Directives Records Found Additional Source Comments INFORMATION SOURCE (unrecogn ized section and content) DATE CREATED AUTHOR 09/08/2021 [facility] DATE CREATED AUTHOR AUTHOR'S ORGANIZ ATION 10/26/2021 Saad Coker [facility] DATE CREATED AUTHOR AUTHOR'S ORGANIZ ATION 04/12/2023 [facility] dical Specialists [facility] Care Team (unrecognized sect ion and content) Personnel Name: Alna BRAVO MD Address: [address] [place] [address], [address] FOR RECORDS PERTAINING TO PATIENTS WHO [...] BE BASED ON THE PRIMARY CLINICAL RECORDS. [facility] [employer] [facility]. provides no warranty or guarantee of the accuracy or completeness of information in this document.
[2023-05-05 11:33] LABS: Basophils Absolute Auto 0.1 10^3/uL (0.0-0.1); Basophils Percent Auto 0.7 % (0.2-2.0); Eosinophils Absolute Auto 0.2 10^3/uL (0.0-0.7); Eosinophils Percent Auto 2.3 % (0.9-7.0); Hematocrit 41.2 % (36.0-48.0); Hemoglobin 13.8 g/dL (12.0-16.0); Immature Granulocytes Abs Auto 0.02 10^3/uL (0.00-0.03); Immature Granulocytes Pct Auto 0.2 % (0.0-0.5); Lymphocytes Absolute Auto 3.2 10^3/uL (1.2-3.8); Lymphocytes Percent Auto 34.8 % (20.5-60.0); Mean Corpuscular HGB Conc 33.5 g/dL (29.9-35.2); Mean Corpuscular Hemoglobin 31.4 pg (26.7-34.0); Mean Corpuscular Volume 93.8 fL (81.0-99.0); Mean Platelet Volume 9.2 fL (9.5-13.5); Monocytes Absolute Auto 0.7 10^3/uL (0.3-0.8); Monocytes Percent Auto 7.5 % (1.7-12.0); Neutrophils Absolute Auto 4.9 10^3/uL (1.4-6.5); Neutrophils Percent Auto 54.5 % (43.0-75.0); Platelet Count 279 10^3/uL (150-450); Red Blood Count 4.39 10^6/uL (4.20-5.40); Red Cell Distribution Width 14.3 % (11.0-15.0)
--- NOTE | 2023-05-05 12:11 | PC.NURSE ---
Tolerated IV start very poorly and has history of passing out; 2 unsuccessful IV attempts per other nurse
[2023-05-05] MEDS: LACTATED RINGER'S SOLUTION 1,000 ML 50 ML IV (12:13)
[2023-05-05] MEDS: CEFAZOLIN SODIUM/DEXTROSE,ISO 1 GM/50 ML IV.SOLN IV (12:45)
--- NOTE | 2023-05-05 15:29 | PM.ONB ---
Brief Operative Note Date of procedure: 05/05/23 Pre-op diagnosis: pelvic pain, pmb, dyspareunia Post-op diagnosis: same as pre-op Procedure: NAME OF PROCEDURE: ? Robotic assisted laparoscopic hysterectomy with cystoscopy, bilateral salpingectomy PROCEDURE:? The patient was taken back to the operating room, where she was prepped and draped in the normal sterile fashion after being placed in the dorsal lithotomy position.? Patient?s anesthesia was found to be adequate.? Surgical timeout was performed using two patient identifiers.? SCDs were on and in place.? Two grams of Ancef were given prior to the surgery.? Sterile [place] catheter was inserted.? Standard size VCare was secured to the uterine cervix and the surgeon changed gloves.? Attention then was turned to the patient's abdomen, where a supraumbilical incision was then made.? Two S retractors were used to identify the patient?s fascia.? The fascia was then tented up using Travon clamps and the patient?s fascia was incised sharply.? Patient?s abdomen was identified and entered bluntly.? The patient had the trocar placed and a pneumoperitoneum was obtained.? Approximately 4 liters of CO2 gas was used.? The camera was then placed through the trocar.? At this time, two robot trocars were placed in the patient?s left and right side, two hand widths from the midline, and this was placed under direct visualization.? The patient?s tube on the right side was tented up and the vessel sealer was then used to come across the mesosalpinx, and this was carried down to the uterine ovarian ligament.? The vessel sealer was carried down serially to the broad ligament, to the area of the bladder flap, which was then created anteriorly, and the uterine arteries were skeletonized and sealed using the vessel sealer.? The colpotomy was made using the monopolar cautery on cut, and this was carried circumferentially, posteriorly to anteriorly, until the uterus was amputated.? The specimen was then removed intact through the vagina, without difficulty.? The vagina was then closed using two running V-Loc in a non-lock fashion.? The robot was undocked.? The abdomen was desufflated.? The skin defects were closed using 4-0 Vicryl.? Please note, the fascia was closed using 0 Vicryl.? Sponge, lap and needle counts were correct x2.? Patient was taken to recovery room in stable condition.? The patient was awakened by Anesthesia first.? Patient tolerated procedure well.??possible bladder tumor found on cysto will refer to urology as precaution dt pt risk factors Anesthesia: PIERREA Surgeon: Blake Keller Toxics Program Officer: Rut Saxena Estimated blood loss (mL): 50 Pathology: other (uterus and tubes) Condition: stable Disposition: PACU Urinary Catheter Management Urinary Catheter Management Urethral: Cath placed during this visit: no
[2023-05-05] MEDS: LACTATED RINGER'S SOLUTION 1,000 ML 125 ML IV (15:57)
[2023-05-05] MEDS: ONDANSETRON PF 4 MG/2 ML VIAL IV (16:08)
[2023-05-05] MEDS: HYDROMORPHONE HCL 0.5 MG/0.5 ML SYRINGE IV (16:08)
[2023-05-05] MEDS: KETOROLAC TROMETHAMINE 30 MG/ML VIAL IVP (17:26)
[2023-05-05] MEDS: OXYCODONE HCL/ACETAMINOPHEN 5MG/325MG 2 TAB PO (19:27)
[2023-05-05] MEDS: IBUPROFEN 400 MG TABLET 800 MG PO (23:50)
[2023-05-06] MEDS: OXYCODONE HCL/ACETAMINOPHEN 5MG/325MG 2 TAB PO (03:06)
[2023-05-06 06:06] LABS: Basophils Percent Auto 0.3 % (0.2-2.0); Eosinophils Percent Auto 0.3 % (0.9-7.0); Hematocrit 35.2 % (36.0-48.0); Hemoglobin 11.5 g/dL (12.0-16.0); Immature Granulocytes Abs Auto 0.04 10^3/uL (0.00-0.03); Immature Granulocytes Pct Auto 0.3 % (0.0-0.5); Lymphocytes Absolute Auto 2.9 10^3/uL (1.2-3.8); Lymphocytes Percent Auto 23.4 % (20.5-60.0); Mean Corpuscular HGB Conc 32.7 g/dL (29.9-35.2); Mean Corpuscular Hemoglobin 31.2 pg (26.7-34.0); Mean Corpuscular Volume 95.4 fL (81.0-99.0); Mean Platelet Volume 9.3 fL (9.5-13.5); Monocytes Percent Auto 7.7 % (1.7-12.0); Neutrophils Absolute Auto 8.4 10^3/uL (1.4-6.5); Platelet Count 232 10^3/uL (150-450); Red Blood Count 3.69 10^6/uL (4.20-5.40); Red Cell Distribution Width 14.4 % (11.0-15.0); White Blood Count 12.4 10^3/uL (4.0-11.0)
--- NOTE | 2023-05-06 09:07 | P.GYNPN_ITS ---
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 Post-Op Subjective: patient has no complaints, patient desires discharge, pain is well controlled and patient is tolerating oral intake Exam Constitutional Vital Signs, click to edit/add: Last Vital Signs Temp 96.6 F L 05/05/23 23:52 Pulse 64 05/05/23 23:53 Resp 16 05/05/23 23:50 BP 103/59 05/05/23 23:53 Pulse Ox 95 05/05/23 16:41 O2 Del Method Room Air 05/05/23 16:41 Documenting provider has reviewed patient's vital signs: yes Common normals: no apparent distress Respiratory Common normals: normal respiratory effort and clear to auscultation bilaterally Cardio Common normals: regular rate and regular rhythm GI Common normals: Normal to inspection, nondistended, normoactive bowel sounds present Extremity Common normals: no calf tenderness Results Labs Labs: Short CBC 05/05/23 05/06/23 Range/Units 11:26 05:59 WBC 9.0 12.4 H (4.0-11.0) 10^3/uL Hgb 13.8 11.5 L (12.0-16.0) g/dL Hct 41.2 35.2 L (36.0-48.0) % Plt Count 279 232 (150-450) 10^3/uL 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 TEACHER - A/P Postoperative Procedures: Procedures Operation Date: 05/05/23 12:30 Actual Procedure Side Surgeon p Robot assist laparoscopic hysterectomy,GEOFF, cysto,BSO Not Applicable Blake Keller DO Postoperative day: 1 Postoperative status 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 TREATMENT TEACHER: doing well Post-operative plan 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 TREATMENT TEACHER: routine post-op care, see orders, discharge and other (fu 1wk, precautions given) Fall Risk Details Pugh fall scale risk level: Low Fall Risk Current medications: Current Medications Docusate Sodium (Docusate Sodium 100 Mg Capsule) 100 mg PO BID PRN PRN Reason: Constipation Lactated Ringer's (Lactated Ringers) 1,000 mls @ 125 mls/hr IV .Q8H ERIC Last Infusion: 05/05/23 23:48 Dose: Infused Ibuprofen (Ibuprofen 400 Mg Tablet) 800 mg PO Q6H PRN PRN Reason: Pain Scale 4-6 Last Admin: 05/05/23 23:50 Dose: 800 mg Ketorolac Tromethamine (Ketorolac Tromethamine 30 Mg/Ml Vial) 30 mg IVP Q6H PRN PRN Reason: Pain Last Admin: 05/05/23 17:26 Dose: 30 mg Ondansetron HCl (Ondansetron Pf 4 Mg/2 Ml Vial) 4 mg IV Q6H PRN PRN Reason: Nausea Last Admin: 05/05/23 16:08 Dose: 4 mg Oxycodone/Acetaminophen (Oxycodone Hcl/Acetaminophen 5mg/325mg) 1 tab PO Q6H PRN PRN Reason: Pain Oxycodone/Acetaminophen (Oxycodone Hcl/Acetaminophen 5mg/325mg) 2 tab PO Q6H PRN PRN Reason: Pain Last Admin: 05/06/23 03:06 Dose: 2 tab Promethazine HCl (Promethazine Hcl 25 Mg/Ml Vial) 12.5 mg IV Q6H PRN PRN Reason: Nausea And Vomiting Simethicone (Simethicone 80 Mg Tab.Chew) 80 mg PO PCHS PRN PRN Reason: Abdominal Distention Temazepam (Temazepam 15 Mg Capsule) 30 mg PO QHS PRN PRN Reason: Sleep Time Spent With Patient Time: Total time spent is greater than 50% in coordination of care (as documented) at patient's floor/unit and/or counseling patient: Time with patient: less than 15 minutes Urinary Catheter Management Urinary Catheter Management Urethral: Cath placed during this visit: no
[2023-05-06] MEDS: MAGNESIUM HYDROXIDE 2,400 MG/10 ML ORAL.SUSP 2400 MG PO (09:29)
[2023-05-06] MEDS: IBUPROFEN 400 MG TABLET 800 MG PO (09:30)
[2023-05-06] MEDS: DOCUSATE SODIUM 100 MG CAPSULE PO (09:31)
[2023-05-06 09:40] VITALS: BP 116/53; PULSE 66; TEMP 36.9
[2023-05-06] MEDS: OXYCODONE HCL/ACETAMINOPHEN 5MG/325MG 1 TAB PO (10:22)
== END 2023-05-06 10:25 | disposition home or self-care (01) ==
LOC: SURGOUT 11:18 → FBC 16:19
PROVIDERS: PCP Nurse Practitioner Primary Care; Visit Provider Obstetrics & Gynecology
PROC: (CPT 840; principal; 2023-05-05 12:30)
DX: N92.0 Excessive and frequent menstruation with regular cycle (principal); N94.10 Unspecified dyspareunia; R10.2 Pelvic and perineal pain; N94.6 Dysmenorrhea, unspecified; Z98.51 Tubal ligation status; R93.89 Abnormal findings on diagnostic imaging of other specified body structures; F17.210 Nicotine dependence, cigarettes, uncomplicated
CPT/HCPCS: 58571; 36415; 85025; 88307; 94667; J0330; J0690; J1100; J1170; J1885; J2250; J2371; J2405; J2704; J3010

== ENCOUNTER 2023-09-19 18:46 | Inpatient (IN) | payer BC, SELFPAY ==
[2023-09-19] VITALS (17 sets, daily range): BP systolic 81–134; BP diastolic 48–90; PULSE 59–88; TEMP 36.6–37.1; O2SAT 93–98; BMI 21.3
--- NOTE | 2023-09-19 19:08 | CT_ITS ---
The [address] [address] Patient Name: MARTA MORALEZ MRN: [id number] date: 1970 Sex: F Assigned Patient Location: ER Current Patient Location: ER Accession/Order Number: [id number] Exam Date: 09/19/2023 19:50 Report Date: 09/19/2023 20:53 At the request of: MAMADOU BERNAL Procedure: CT abdomen pelvis w con CT OF THE ABDOMEN AND PELVIS WITH IV CONTRAST: 09/19/2023 7:50 PM EDT CLINICAL HISTORY: Abdominal pain. COMPARISONS: None. TECHNIQUE: Thin section axial CT images were obtained from the lung bases to the pubis symphysis. This CT exam was performed using one or more of the following dose reduction techniques: Automated exposure control, adjustment of the mA and/or kV according to patient size, or use of iterative reconstruction technique. Thin section coronal and sagittal images were reconstructed from the axial data set. All images were reviewed and interpreted. CONTRAST: Intravenous contrast was administered. Type and amount is documented at the local institution. FINDINGS: LUNG BASES: No consolidation or pleural fluid. LIVER: Normal. GALLBLADDER: Cholecystectomy. BILIARY TREE: There is pronounced intrahepatic and common bile duct distention which tapers at the ampulla. No pancreatic duct dilation. This may be related to prior cholecystectomy but should be correlated with normal biliary labs. If abnormal and consider further evaluation with MRCP and/or ERCP. PANCREAS: Normal. SPLEEN: Scattered punctate calcified splenic granulomas, otherwise normal spleen. ADRENALS: Normal. KIDNEYS: Normal, without urolithiasis or hydronephrosis. URINARY BLADDER: Grossly unremarkable. PELVIC STRUCTURES: Uterus and ovaries not seen either surgically absent or atrophy. Correlate with surgical history . SMALL BOWEL: No evidence of obstruction, gross mass, or inflammatory change. LARGE BOWEL: There is uniform long segment wall thickening and acute colitis involving the descending large bowel and sigmoid portions of colon. Noted throughout the left hemicolon beginning around the splenic flexure and extending contiguously to the distal sigmoid region. There is no significant diverticulosis. There is no evidence of diverticulitis. There is some hyperdense fluid within the right hemicolon and cecum which may be from swallowed Pepto-Bismol or similar type substance. Correlate with history. APPENDIX: Normal appendix noted which fills with hyperdense Pepto-Bismol like substance or barium. No acute appendicitis. LYMPH NODES: No pathologically enlarged lymph nodes identified. PERITONEUM: No intraperitoneal free air. No free intraperitoneal fluid. MESENTERY: Unremarkable. RETROPERITONEUM: The retroperitoneum is unremarkable. AORTA: Normal in caliber. BODY WALL: No body wall mass. OSSEOUS STRUCTURES: Normal osseous structures and joints for age. Transitional vertebrae at lumbosacral junction. No destructive osseous lesion or displaced fracture. CT/CT abdomen pelvis w con IMPRESSION: 1. Acute long segment colitis involving the left hemicolon including descending and sigmoid large bowel beginning at hepatic flexure extending to the distal sigmoid. Uncertain etiology. Correlate for infection versus inflammatory bowel disease (ulcerative colitis/Crohn's) or possibly ischemia colitis. Correlate with patient's history and labs including lactic acid. No bowel obstruction. Sparing of right hemicolon most of transverse colon. 2. Cholecystectomy with prominent intrahepatic and extrahepatic bile duct distention which may be related to prior cholecystectomy procedure. Correlate with normal biliary labs. If abnormal and suggest further evaluation with MRCP and/or ERCP. Electronically authenticated by: RAINA FRANCES Date: 09/19/2023 20:53
--- NOTE | 2023-09-19 19:08 | ECG_ITS ---
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
--- OUTSIDE RECORDS SUMMARY | 2023-09-19 19:15 | XMS_ITS | CCD ---
Author Organization [facility] Inform ion Partnership [facility] Care Team Providers Care Linen Aide Name Role Phone SASHA, DR ASH Admitting [...] Attending Unavailable KARASIK, DR ASH Consulting Unavailable KARASIKAlan Primary Care Physician Manny Keller Attending Provider [phone] Unavailable Primary Care Provider Unavailcate e Manny Keller Attending Unavailable Manny Keller Admitting Unavailable Krishna MEZA, Manny Unavailable Shammo MELON PACKER-MARQUIS, John Primary Care Provider [phone] MANNY KELLER Attending Unavailable VIVIENNE AVALOS Attending Unavailable RAIZA RAMIREZ Attending Unavailable ATIEMO, CHASE NAJERA Referring Unavailabl e SHAMMO, JOHN Primary Care Unavailable ATBELLMOCHASE Admitting Unavailabl e ATIEMOCHASE Attending Unavailabl e ATIEMO, CHASE BARBEREI Referring Unavailabl e SHAMMO, JOHN Primary Care Unavailable ATIEMO, STONE ODEI Attending Unavailabl e JOHN FLORES Referring Unavailable JOHN FLORES Primary Care Unavailable CHARITY ALEXANDER Attending Unavailable JOHN FLORES Primary Care Unavailable Medications Current Medications Medication Drug Class(es) Dates Sig (Normalized) Sig (Original) Tylenol PM (1 source) Histamine-1 Receptor Antagonist Start: 10-16-2021 Tylenol PM Oral, Once a day (at bedtime) Start Date: 10/16/21 Status: Ordered acetaminophen 325 mg / oxyCODONE hydrochloride 5 mg oral tablet (1 source) Opioid Agonist Start: 05-06-2023 take 1 tablet by mouth every six hours oxyCODONE-acetami nophen (Percocet) 5-325 MG tablet Take 1 tablet by mouth every 6 (six) hours 0 05/06/2023 Active hydrOXYzine pamoate 25 mg oral capsule (5 sources) Antihistamine Start: 12-22-2022 hydrOXYzine pamoate (Vistaril) 25 MG capsule every 12 (twelve) hours. 0 12/22/2022 Active take 1 tablet by bradley th three times daily as needed for anxiety hydrOXYzine (ATARAX) 25 mg tablet Take 1 tablet (25 mg total) by mouth 3 (three) times a day as needed for anxiety. 0 Active ibuprofen 800 mg oral tablet (1 source) Nonsteroidal Anti-inflammatory Drug Start: 05-06-2023 take 1 tablet by mouth every eight hours ibuprofen 800 MG tablet Take 800 mg by mouth every 8 (eight) hours 0 05/06/2023 Active sertraline 50 mg oral tablet (5 sources) Serotonin Reuptake Inhibitor Start: 12-22-2022 take 1 tablet by mouth once daily in the morning sertraline (Zoloft) 50 MG tablet 1 tablet Orally Once a day in the morning for 30 days 0 12/22/2022 Active End: 06-06-2023 take 1 tablet by mouth in the morning sertraline (ZOLOFT) 100 mg tablet Take 1 tablet (100 mg total) by mouth in the morning. 0 06/06/2023 Discontinued traZODone hydrochloride 50 mg oral tablet (5 sources) Serotonin Reuptake Inhibitor Start: 12-22-2022 traZODone (Desyrel) 50 MG tablet take 1 tablet by mouth once gary y traZODone (DESYREL) 100 mg tablet Indications: insomnia associated with depression Take 1 tablet (100 mg total) by mouth nightly Indications: insomnia associated with depression. 0 Active Completed/Discontinued Medications Medication Drug Class(es) Dates Sig (Normalized) Sig (Original) ARIPiprazole 2 mg oral tablet (3 sources) Atypical Antipsychotic End: 06-06-2023 take 1 tablet by mouth in the morning ARIPiprazole (ABILIFY) 2 mg tablet Take 1 tablet (2 mg total) by mouth in the morning. 0 06/06/2023 Discontinued cephalexin 500 mg oral capsule (1 source) Cephalosporin Antibacterial Start: 10-16-2021 take 1 capsule by mouth once daily Keflex 500 mg Cap 500 mg = 1 cap(s), Oral, Daily, Take 1 tab day before procedure and 1 after procedure, # 2 cap(s), Refills(s) 0, Pharmacy: [address], 172, cm, 10/16/21 14:14:00 EDT, Height/Length Dosing, 102, kg, 10/16/21 14:14:00 EDT, Weight Dosing Start Date: 10/16/21 Status: Ordered ondansetron 4 mg oral tablet (3 sources) Serotonin-3 Receptor Antagonist End: 06-06-2023 take 1 tablet by mouth every eight hours as needed for nausea and vomiting ondansetron (ZOFRAN) 4 mg tablet Take 1 tablet (4 mg total) by mouth every 8 (eight) hours as needed for nausea or vomiting. 0 06/06/2023 Discontinued semaglutide, weight loss, (WEGOVY) 2.4 mg/0.75 mL pen injector (3 sources) End: 06-06-2023 semaglutide, weight loss, (WEGOVY) 2.4 mg/0.75 mL pen injector Inject 0.75 mL (2.4 mg total) under the skin every 7 days. 0 06/06/2023 Discontinued semaglutide, franklin ght loss, (WEGOVY) 2.4 mg/0.75 mL pen injector Inject 0.75 mL (2.4 mg total) under the skin every 7 days. 0 Active Wegovy 2.4 MG/0.75ML solution auto-injector (2 sources) [...] for 28 days 0 08/02/2022 Active Problems Active Problems Problem Classification Problem Date Documented Date Episodic/Chronic Abdominal pain (3 sources) Pelvic and perineal pain; Translations: [Pain in female pelvis] Onset: 09-07-2021 04-11-2023 Episodic Anxiety disorders (1 source) Needle phobia; Translations: [Other specified phobia] Onset: 06-06-2023 06-06-2023 Chronic Genitourinary symptoms and ill-defined conditions (2 sources) Stress incontinence (female) (male); Translations: [Genuine stress incontinence] Onset: 10-16-2021 Chronic Genitourinary symptoms and ill-defined conditions (10 sources) Sensation as if bladder still full; [...] Episodic Other diseases of bladder and urethra (3 sources) Mass of urinary bladder; Translations: [Other specified disorders of bladder] Onset: 05-20-2023 05-25-2023 Chronic Other diseases of bladder and urethra (1 source) Other specified disorders of bladder; Translations: [Other specified disorders of bladder] Onset: 05-25-2023 Chronic Other female genital disorders (5 [...] Unclassified (1 source) New Patient Onset: 05-20-2023 Past or Other Problems Problem Classification Problem Date Documented Da te Episodic/Chronic Other screening for suspected conditions (not mental disorders or infectious disease) (4 sources) Abnormal findings on diagnostic imaging of other specified body structures; Translations: [Endometrium thickened] Onset: 09-07-2021 Resolved: 06-06-2023 04-11-2023 Chronic Results Test Name Value Interpretation Reference Range Facility BASIC METABOLIC PANLon 06-05 Anion gap [Moles/Vol] 8 mmol/L Normal 5-15 [facility] Comment on above: Performed By: #### B MP #### [facility] ([id number]) [address], [address] [place] [address] Calcium [Mass/Vol] 9.6 mg/dL Normal 8.5-10.5 [facility] Comment on above: Performed By: #### B MP #### [facility] ([id number]) [address], [address] [place] [address] Chloride [Moles/Vol] 108 mmol/L Normal 98-[address] [facility] Comment on above: Performed By: #### B MP #### [facility] ([id number]) [address], [address] [place] [address] CO2 [Moles/Vol] 28 mmol/L Normal 22-32 [facility] Comment on above: Performed By: #### B MP #### [facility] ([id number]) [address], [address] [place] [address] Creatinine [Mass/Vol] 0.73 mg/dL Normal 0.40-1.00 [facility] Comment on above: Result Comment: METH OD TRACEABLE TO IDMS STANDARD Performed By: #### B MP #### [facility] ([id number]) [address], [address] [place] [address] eGFR (CKD-EPI) NON-RACE DEPENDENT >90 Normal >59 [facility] Comment on above: Result Comment: Reported eGFR is based on the CKD-EPI 1 equation that does not use a race coefficient. Performed By: #### B MP #### [facility] ([id number]) [address], [address] [place] [address] Glucose [Mass/Vol] 85 mg/dL Normal 65-99 [facility] Comment on above: Performed By: #### B MP #### [facility] ([id number]) [address], [address] [place] [address] Potassium [Moles/Vol] 3.7 mmol/L Normal 3.5-5.0 [facility] Comment on above: Performed By: #### B MP #### [facility] ([id number]) [address], [address] [place] [address] Sodium [Moles/Vol] 144 mmol/L Normal 134-146 [facility] Comment on above: Performed By: #### B MP #### [facility] ([id number]) [address], [address] [place] [address] Urea nitrogen [Mass/Vol] 20 mg/dL Normal 5-23 [facility] Comment on above: Performed By: #### B MP #### [facility] ([id number]) [address], [address] [place] [address] Basic Metabolic Panelon 03-0 Anion gap [Moles/Vol] 8 mmol/L 5 - 15 mmol/L [facility] Calcium [Mass/Vol] 9.6 mg/dL 8.5 - 10. 5 mg/dL [facility] Chloride [Moles/Vol] 108 mmol/L 98 - 10 9 mmol/L [facility] CO2 [Moles/Vol] 28 mmol/L 22 - 32 mmol/L [facility] Creatinine [Mass/Vol] 0.73 mg/dL 0.40 - 1.00 mg/dL [facility] Comment on above: METHOD TRACEABLE TO IDMS STANDARD eGFR (CKD-EPI)non-race dependent - PINF [facility] Comment on above: Reported eGFR is based on the CKD-EPI 2020 equation that does not use a race coefficient. Glucose [Mass/Vol] 85 mg/dL 65 - 99 mg/dL [facility] Potassium [Moles/Vol] 3.7 mmol/L 3.5 - 5.0 mmol/L [facility] Sodium [Moles/Vol] 144 mmol/L 134 - 146 mmol/L [facility] Urea nitrogen [Mass/Vol] 20 mg/dL 5 - 23 mg/dL [facility] POCT Urinalysis Auto, W/O Mi croscopyon 05-20-2023 External Poct Urine Blood Trace [facility] External Poct Urine Glucose Negative [facility] External Poct Urine Ketones Trace [facility] External Poct Urine Leukocyte Esterase Trace [facility] External Poct Urine Nitrite Negative [facility] External Poct Urine Ph 6.0 [facility] External Poct Urine Protein Negative [facility] ALL CBC WITH AUTO DIFFon BASOPHILS ABSOLUTE AUTO 0.0 [facility] Basophils/100 WBC (Bld) 0.3 % 0.2 - 2.0 % [facility] Eosinophils/100 WBC (Bld) 0.3 % Low 0.9 - 7.0 % [facility] Erythrocyte distribution width (RBC) [Ratio] 14.4 % 11.0 - 15.0 % [facility] Hematocrit (Bld) [Volume fraction] 35.2 % Low 36.0 - 48.0 % [facility] Hem[facility] (Bld) [Mass/Vol] 11.5 g/dL Low 12.0 - 16.0 g/dL [facility] IMMATURE GRANULOCYTES ABS AUTO 0.04 High [facility] Immature granulocytes/100 WBC (Bld) 0.3 % 0.0 - 0.5 % [facility] Interpretation and review of laboratory results Abnormal [facility] LYMPHOCYTES ABSOLUTE AUTO 2.9 [facility] Lymphocytes/100 WBC (Bld) 23.4 % 20.5 - 60.0 % [facility] MCH (RBC) [Entitic mass] 31.2 pg 26.7 - 34.0 pg [facility] MCHC (RBC) [Mass/Vol] 32.7 g/dL 29.9 - 35.2 g/dL [facility] MCV (RBC) [Entitic vol] 95.4 fL 81.0 - 99.0 fL [facility] MONOCYTES ABSOLUTE AUTO 1.0 High [facility] Monocytes/100 WBC (Bld) 7.7 % 1.7 - 12.0 % [facility] NEUTROPHILS ABSOLUTE AUTO 8.4 High [facility] Neutrophils/100 WBC (Bld) 68.0 % 43.0 - 75.0 % [facility] Platelet mean volume (Bld) [Entitic vol] 9.3 fL Low 9.5 - 13.5 fL [facility] EO # 0.0 [facility] PLT 232 [facility] RBC 3.69 Low [facility] WBC 12.4 High [facility] E[place] 05-05-2023 L Specimen: 24 Received: 05/06/23 Status: PATRICK Esparza Num: [id number] Spec Type: Surgical Subm Dr: Manny Keller Tissues: A Uterus w/ or w/o tubes ovaries except neoplastic or prolap (UTERU MARY BETH FT) Procedures: HE/12, Gross/Micro L5 Age/ Patient Sex Location Account Attending Physician Priscilla Waters 52/F LABELL [id number] Manny Keller SPEC NUM: [id number] RECD: 05/06/23 STATUS: PATRICK ESPARZA NUM: [id number] NIGEL: 05/05/[address]: Manny Keller ENTERED: 05/06/23 [facility] DR: Carolynn,Lab SPEC TYPE: Surgical DEPT: AQUILES [...] The fimbria are scant but otherwise unremarkable. Pattern Maker sections are submitted in 6 cassettes as follows: -------- Specimen: [id number] Received: 05/06/23 Status: PATRICK Arriagasven Num: [id number] Spec Type: Surgical Subm Dr: Manny Keller Tissues: A Uterus w/ or w/o tubes ovaries except neoplastic or prolap (UTERU MARY BETH FT) Procedures: , Gross/Micro L5 -------- Patient: Priscilla Waters [id number] (Continued) -------- Specimen: [id number] Received: 05/06/23 (Continued) Gross Description (Continued) Signed (signature on file) Madelaine Gar MD 05/09/23 2254 -------- Specimen: [id number] Received: 05/06/23 Status: PATRICK Arriagasven Num: [id number] Spec Type: Surgical Subm Dr: Manny Keller Tissues: A Uterus w/ or w/o tubes ovaries except neoplastic or prolap (UTERU MARY BETH FT) Procedures: , Gross/Micro L5 -------- Patient: Priscilla Waters [id number] (Continued) -------- Specimen: [id number] Received: 05/06/23 (Continued) Gross Description (Continued) A1 - Posterior cul-de-sac serosa A2 - Anterior and posterior cervix A3 - Anterior endomyometrium A4 - Posterior endomyometrium A5 - Leburn fallopian tube entirely submitted A6 - Longer fallopian tube with fimbria entirely submitted CPT Codes 98679 -------- -------- Specimen: [id number] Received: 05/06/23-125 Status: PATRICK Esparza Num: [id number] Spec Type: Surgical Subm Dr: Manny Keller Tissues: A Uterus w/ or w/o tubes ovaries except neoplastic or prolap (UTERU MARY BETH FT) Procedures: , Gross/Micro L5 -------- Patient: Priscilla Waters [id number] (Continued) -------- Signed (signature on file) Madelaine Gar MD 05/09/23 2254 [facility] Pre-Certification Formon Pre-Certification Form [id number]# 1.00CD:127 Normal [facility] Physician Referralon 022 Physician Referral [id number] .00CD:127 Normal [facility] Ambulatory Visit Summaryon 0 10-16-2021 Ambulatory Visit Summary PRISCILLA WATERS :1970 Visit Date:10/16/2021 Ambulatory Visit Instructions Your Diagnosis Feeling of incomplete bladder emptying Stress incontinence Tests Performed Urnls Dip Stick Auto w/o Microscopy POC 00057 Your Care Team Attending Physician - Rober [...] URL, URO When: Where: [address] [place] [address]- [phone] Medications What How Much When Instructions Unchanged acetaminophen-diphenh ydrAMINE (Tylenol PM) Once a day (at bedtime) Contact prescribing physician if questions or concerns Test Results Urnls Dip Stick Auto w/o Microscopy POC 71959 (10/16/2021) Bilirubin Urine Dipstick - Negative Blood Urine Dipstick - Negative Glucose Urine Dipstick - Negative Ketones Urine Dipstick - Negative Leukocytes Urine Dipstick - 1+ Small Nitrite Urine Dipstick - Negative Protein Urine Dipstick - Negative Specific Wharton Urine Dipstick - <=1.005 Urine Appearance Urine [...] including vitamins, herbs, eye drops, creams, and vlhd-pfy-genmanj medicines. ? Whether you are or may [...] ? Rem (more content not included)... Normal [facility] Patient Educationon 10-17-19 Patient Education [...] including vitamins, herbs, eye drops, creams, and zeim-tzh-cggcvse medicines. ? Whether you are or may [...] system diseases. (more content not included)... Normal [facility] PREG HCG QUALon 08-14-2021 , QUAL Negative Normal NEGATIVE [facility] Comment on above: Performed By: #### P REG #### [facility] [address] [place] [address] Dr. Thom Gonzalez US PELVIS AND TRANSVAGon [...] by: KAIT ELMORE Date: 2021-07-10 09:07 Normal [facility] PAP ACOG PANEL 2: 30 to 65on 07-06-2021 . . Normal [facility] Comment on above: Result Comment: Perf ormed at: WB Performed By: #### [id number] #### [facility] [address] [place] [address] Dr. Thom Gonzalez Age Gdln ACOG Testing 30-65 [facility] Comment on above: Performed By: #### [id number] #### [facility] [address] [place] [address] Dr. Thom Gonzalez DIAGNOSIS: Comment Normal [facility] Comment on above: Result Comment: NEGA TIVE FOR INTRAEPITHELIAL LESION OR MALIGNANCY. Performed at: WB Performed By: #### [id number] #### [facility] [address] [place] [address] Dr. Thom Gonzalez HPV Aptima Negative Normal [facility] Comment on above: Result Comment: This nucleic acid amplification test detects fourteen high-risk HPV types (16,18,31,33,35,39,45,51,52,56,58,59,66,68) without differentiation. Performed at: =G Performed By: #### [id number] #### [facility] [address] [place] [address] Dr. Thom Gonzalez Methodology: Comment [facility] Comment on above: Result Comment: This liquid based ThinPrep(R) pap test was screened with the use of an image guided system. Performed at: WB Performed By: #### 4 [id number] #### [facility] [address] [place] [address] Dr. Thom Gonzalez Note: Comment Normal [facility] Comment on above: Result Comment: The Pap smear is a screening test designed to aid in the detection of premalignant and malignant conditions of the uterine cervix. It is not a diagnostic procedure and should not be used as the sole means of detecting cervical cancer. Both false-positive and false-negative reports do occur. . Performed at: WB Performed By: #### [id number] #### [facility] [address] [place] [address] Dr. Thom Gonzalez Performed by: Comment Normal [facility] Comment on above: Result Comment: Lesvia Irizarry, Home Theater Installer (ASCP) Performed at: WB Performed By: #### [id number] #### [facility] [address] [address] [address] Thom Gonzalez Specimen adequacy: Comment Normal [facility] Comment on above: Result Comment: Sati sfactory for evaluation. Endocervical and/or squamous metaplastic cells (endocervical component) are present. Performed at: WB Performed By: #### [id number] #### [facility] [address] [address] [address] Thom Gonzalez Vital Signs Date Time Vital Sign Value Performing Clinician Facility 06-06-2023 10:53-0500 Body height 172.7 cm [facility] 06-06-2023 10:53-0500 Body mass index (BMI) [Ratio] 22.12 kg/m2 [facility] [address] [place] [address] 06-06-2023 10:53-0500 Body temperature 96.1 [degF] [facility] [address] [place] [address] System 06-06-2023 10:53-0500 Body weight 66 kg [facility] [address] [place] [address] 06-06-2023 10:53-0500 Diastolic blood pressure 60 mm[Hg] [facility] 06-06-2023 10:53-0500 Heart rate 86 /min [facility] [address] [place] [address] 06-06-2023 10:53-0500 SaO2% (BldA) [Mass fraction] 95 % [facility] [address] [place] [address] 06-06-2023 10:53-0500 Systolic blood pressure 115 mm[Hg] [facility] [address] [place] [address] 05-20-2023 16:03-0500 Body height 172.7 cm Chase Roberts MD Work Phone: [facility] 05-20-2023 16:03-0500 Body mass index (BMI) [Ratio] 22.2 kg/m2 Chase Roberts MD Work Phone: [facility] 05-20-2023 16:03-0500 Body weight 66.22 kg Chase Roberts MD Work Phone: [facility] 05-20-2023 16:03-0500 Diastolic blood pressure 66 mm[Hg] Chase Roberts MD Work Phone: [facility] 05-20-2023 16:03-0500 Heart rate 79 /min Chase Roberts MD Work Phone: [facility] 05-20-2023 16:03-0500 Systolic blood pressure 97 mm[Hg] Chase Roberts MD Work Phone: [facility] 05-12-2023 14:08-0500 Body mass index (BMI) [Ratio] 22.62 kg/m2 Vivienne Avalos PA Work Phone: [facility] 05-12-2023 14:08-0500 Body weight 67.5 kg Vivienne Amanda PA Work Phone: [facility] 05-12-2023 14:08-0500 Diastolic blood pressure 78 mm[Hg] Vivienne Amanda PA Work Phone: [facility] 05-12-2023 14:08-0500 Systolic blood pressure 120 mm[Hg] Vivienne Sterling PA Work Phone: [facility] 10-16-2021 14:01-0400 Blood Pressure Location [facility] 10-16-2021 14:01-0400 Diastolic blood pressure 92 mm[Hg] [facility] 10-16-2021 14:01-0400 Heart rate 87 /min [facility] 10-16-2021 14:01-0400 Respiratory rate 16 /min [facility] 10-16-2021 14:01-0400 Systolic blood pressure 180 mm[Hg] Crystal [facility] Encounters Encounter Date Encounter Type Care Provider Facility Start: 06-14-2023 End: 06-14-2023 [facility] Start: 06-14-2023 End: 06-14-2023 Evaluation and management of inpatient [facility] Start: 06-06-2023 End: 06-06-2023 ambulatory [facility] Start: 06-06-2023 End: 06-06-2023 Patient encounter procedure [facility] Comment on above: Disorder of urinary system, unspecified; Mass of bladder Start: 06-02-2023 End: 06-02-2023 ambulatory RAIZA Savannah RAMIREZ Not Available Start: 05-25-2023 Telephone encounter Chase Mcclellan MD Work Phone: [facility] Start: 05-20-2023 End: 05-20-2023 ambulatory [facility] Start: 05-20-2023 End: 05-20-2023 Office outpatient new 45 minutes Chase Roberts MD Work Phone: [facility] Comment on above: Disorder of urinary system, unspecified Start: 05-12-2023 End: 05-12-2023 ambulatory VIVIENNE AVALOS Not Available Start: 05-12-2023 End: 05-12-2023 Postop follow up visit related to original px Vivienne KELLEY Work Phone: [facility] Comment on above: Postoperative examin ation Start: 05-06-2023 [facility] Result Encounter Manny Keller DO Work Phone: [facility] Unsolicited Start: 05-06-2023 Cl[facility] Result Encounter Manny Krishna DO Work Phone: [facility] Unsolicited Start: 05-05-2023 End: 05-05-2023 ambulatory Manny Krishna Facility:[facility] Start: 05-05-2023 End: 05-05-2023 ambulatory Manny Krishna Work Phone: [facility] Work Phone: Start: 05-05-2023 End: 05-05-2023 Departed Referred Manny Krishna Work Phone: [facility] Path [facility] Start: 04-11-2023 End: 04-11-2023 ambulatory MANNY KRISHNA Not Available Start: 10-16-2021 End: 10-16-2021 Patient encounter procedure [facility] Start: 08-14-2021 End: 08-14-[address] ALAN BRAVO Facility:[facility] Start: 08-11-[address] ALAN BRAVO [facility] lity:[facility] Start: 08-05-2021 Encounter for other preprocedural examination DR ALAN BRAVO [facility] Start: 08-03-2021 End: 08-04-[address] ALAN BRAVO Facility:[facility] Start: 08-03-2021 End: 08-04-2021 Encounter for other preprocedural examination DR ALAN BRAVO Facility:[facility] Start: 07-10-2021 End: 07-11-[address] ALAN BRAVO Facility:[facility] Start: 06-30-2021 End: 06-30-[address] ALAN BRAVO Facility:[facility] Procedures Date Procedure Procedure Detail Performing Clinician Start: 06-06-2023 Basic metabolic pane l calcium total Stone Reji Roberts MD Work Phone: Start: 05-20-2023 Urnls dip stick/tabl et rgnt auto w/o microscopy Chase Roberts MD Work Phone: Start: 05-06-2023 ALL CBC WITH AUTO DIFF Manny Keller DO Work Phone: Start: 08-02-2021 Diagnostic laparoscopy Crystal [facility] Start: 08-02-2021 Dilation and curetta ge of uterus Crystal [facility] Start: 06-30-2021 Microscopic observat ion [Identifier] in Cervix by Cyto stain Vivienne KELLEY Work Phone: Start: 04-04-2014 Cholecystectomy Crystal L [facility] Start: 04-04-2004 Ligation of fallopian tube Crystal [facility] Plan of Treatment Date Care Activity Detail Author Start: 06-30-2026 Screening for malign ant neoplasm of cervix [facility] Start: 06-05-2024 Adult BMI Screening Adult BMI Screen ing [facility] Start: 05-20-2024 Adult BMI Screening Adult BMI Screen ing [facility] Start: 05-20-2024 Tobacco Screening Tobacco Screening [facility] Start: 07-15-2023 End: 07-15-2023 Patient encounter procedure 07/15/2023 2:00 PM EDT Office Visit [facility] [address] [place] [id number] Chase Roberts MD [address] [place] [address] [facility] Start: 06-14-2023 End: 06-14-2023 Admission to same day surgery center 06/14/2023 9:45 AM EDT - 06/14/2023 10:30 AM EDT Surgery [facility] Ambulatory Surgery A Division of [facility] - Surgery [address] [facility] [address] [place] [address] Chase Roberts [place] [address] [place] [address] CYSTOSCOPY BIOPSY BLADDER [45496 (CPT )] [facility] Comment on above: CYSTOSCOPY BIOPSY BL ADDER [31116 (CPT )] Start: 06-14-2023 End: 06-14-2023 Cystourethroscopy with biopsy CYSTOSCOPY BIOPSY BLADDER Disorder of urinary system, unspecified Mass of bladder 06/14/2023 9:45 AM EDT [facility] Start: 06-14-2023 Subsequent hospital visit by physician 06/14/2023 9:45 AM EDT Hospital Encounter [facility] Surgery [address] [id number] Chase Roberts MD [address] [place] [address] [facility] Start: 06-06-2023 End: 06-06-2023 Patient encounter procedure 06/06/2023 10:45 AM EST Procedure visit [facility] On [address] [address] [facility] Start: 06-02-2023 End: 06-02-2023 Patient encounter procedure 06/02/2023 1:50 PM EST Office Visit [facility] [address] [place] [address] Raiza Ramirez MD [address] [place] [address] [facility] Start: 12-03-2022 COVID-19 Vaccine () COVID-19 Vaccine () [facility] Start: 12-03-2022 Influenza vaccination [facility] Start: 06-29-2019 Administration of va ricella zoster vaccine Zoster (Shingles) Vaccine (1 of 2) [facility] Start: 2009 Screening for malign ant neoplasm of breast Mammogram [facility] Start: 1990 Screening for malign ant neoplasm of cervix Pap Smear [facility] Start: 1988 DTaP,Tdap and Td Vac cines (1 - Tdap) DTaP,Tdap and Td Vaccines (1 - Tdap) [facility] Start: 1981 Depression Screening Depression Scre ening [facility] Start: 1969 Screening for malign ant neoplasm of colon [facility] Start: 1969 Tobacco Counseling Tobacco Counselin g [facility] Cystourethroscopy wi th biopsy CYSTOSCOPY BIOPSY BLADDER Disorder of urinary system, unspecified Mass of bladder [facility] Payers Date Payer Category Payer Self-pay 2021 Unknown [id number] 1969 Unknown [id number] 2.16.84 [id number] 1969 Unknown [id number] 2.16.84 [id number] 1969 Unknown [id number] 2.16.84 [id number] 1969 Unknown [id number] 2.16.84 [id number] 1969 Unknown [id number] 2.16.84 [id number] 1969 Unknown [id number] 2.16.84 [id number] 1969 Unknown [id number] 2.16.84 [id number] 1969 Unknown [id number] 2.16.84 [id number] 1969 Unknown [id number] 2.16.8 [id number] 1969 Unknown [id number] 2.16.8 [id number] 1969 Unknown [id number] 2.16.8 [id number] 1969 Unknown [id number] 2.16.8 [id number] 1969 Unknown [id number] 2.16.8 [id number] 1959 Unknown [id number] Social History Date Type Detail Facility Start: 10-16-2021 Tobacco smoking status Light tobacco smoker (finding) [facility] Start: 05-20-2023 End: 06-06-2023 Sex Assigned At Female [facility] Start: 1970 Sex Assigned At Female [facility] Tobacco smoking status GAIS Tobacco smoking consumption unknown [facility] Start: 1969 Sex Assigned At Not on file [facility] Start: 12-27-2022 Gender identity Identifies as female gender (finding) [facility] Start: 12-27-2022 Sexual orientation Heterosexual (fin ding) [facility] Start: 04-04-1999 End: 06-06-2023 Tobacco smoking status NHIS Smokes tobacco daily [facility] Start: 04-04-1999 History of tobacco use Cigarette Smoker [facility] History of tobacco use Passive smoker [facility] Start: 05-19-2023 End: 06-06-2023 Tobacco use and exposure Smokeless tobacco non-user [facility] Start: 05-20-2023 End: 06-06-2023 Alcohol intake Lifetime non-drinker (finding) [facility] Start: 05-20-2023 End: 06-06-2023 History of Social function [facility] Childcare Unknown [facility] Start: 06-06-2023 Tobacco Comment 2023: eight/day [facility] [email or web address] NEGATED: Highlighted rowStart: NINF History of tobacco use Passive smoker [facility] Functional Status Date Assessment Result Facility 10-16-2021 Functional Status N/A [facility] Clinical Notes 10-16-2021 to 06-06-2023 SHAWNA Cason - 06/06/2023 10:45 AM ESTSHAWNA Cason - 06/06/2023 10:45 AM ESTPatient InstructionsTelephone Encounter - Jane Pollack - 05/25/2023 12:04 PM EST Note Date & Type Note Facility 06-06-2023 History and physical note PRE-OPERATIVE HISTORY AND PHYSICAL Exam Date: 06/06/23 Surgery Date: 06/14/23 PCP: SHAWNA Singh Surgeon: Chase Roberts MD CC: Disorder of the urinary system HPI: Priscilla Waters is a 52 y.o. female who presents for pre-op H&P for planned cystoscopy, bladder biopsy. She had a total hysterectomy on 05/05/23. During the procedure a bladder lesion was noted. She had her hysterectomy secondary to a history of endometrial thickening. This had been ongoing for several years. Each time, she would have an endometrial biopsy that was reportedly normal. She denies any dysuria, hematuria, urgency or frequency. She denies any abdominal or rectal pain. She denies any fever, chills or sweats. In a review of the record, she had a hysterectomy with cystoscopy and bilateral salpingectomy on 05/05/23 secondary to pelvic pain, postmenopausal bleeding and dyspareunia. A bladder tumor was found on the cystoscopy. She was seen by Dr. Roberts on 05/20/23 secondary to voiding dysfunction of 8 months duration and incomplete bladder emptying. According to the notes, she is a 2 para 2 delivering vaginally. No Known Allergies Prior to Admission medications Medication Sig Start Date End Date Taking? Authorizing Provider hydrOXYzine (ATARAX) 25 mg tablet Take 1 tablet (25 mg total) by mouth 3 (three) times a day as needed for anxiety. Yes Not In System Ref Prov traZODone (DESYREL) 100 mg tablet Take 1 tablet (100 mg total) by mouth nightly Indications: insomnia associated with depression. Yes Not In System Ref Prov History : Past Medical History: Diagnosis Date Anxiety Depressed Difficult intravenous access Gall stones Mass of bladder 2023 Needle phobia Thickened endometrium Past Surgical History: Procedure Laterality Date CHOLECYSTECTOMY 2016 D&C FIRST TRIMESTER / TX INCOMPLETE / MISSED / SEPTIC / INDUCED 2020 HYSTERECTOMY 2023 TONSILLECTOMY 1980 TUBAL LIGATION 1995 Family History Problem Relation Age of Onset Cervical cancer Mother 46 Heart disease Mother Early Mother Heart disease Father Alcohol abuse Father Alcohol abuse Sister Depression Sister Arthritis Sister Aneurysm Maternal Grandmother ALS Maternal Grandfather Heart failure Paternal Grandmother Bleeding Disorder Neg Hx Clotting disorder Neg Hx Anesthesia problems Neg Hx Breast cancer Neg Hx Ovarian cancer Neg Hx Colon cancer Neg Hx Diabetes Neg Hx Social History Socioeconomic History Marital status: Spouse name: Not on file Number of children: Not on file Years of education: Not on file Highest education level: Not on file Occupational History Not on file Tobacco Use Smoking status: Every Day Packs/day: 1.00 Years: 20.00 Additional pack years: 0.00 Total pack years: 20.00 Types: Cigarettes Start date: 04/04/1999 Passive exposure: Never Smokeless tobacco: Never Tobacco comments: 2023: eight/day Vaping Use Vaping Use: Never used Substance and Sexual Activity Alcohol use: Never Drug use: Never Sexual activity: Not on file Other Topics Concern Not on file Social History Narrative 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 Social Determinants of Health Financial Resource Strain: Not on file Food Insecurity: No Food Insecurity (06/06/2023) Hunger Screening Food Insecurity - Worry: Never True Food Insecurity - Inability: Never True Transportation Needs: Not on file Physical Activity: Not on file Stress: Not on file Social Connections: Not on file Interpersonal Safety: Not on file Housing Instability: Not on file Review of Systems Review of Systems Constitutional: Negative for fever, chills, diaphoresis, appetite change, fatigue and unexpected weight change. HENT: Negative for congestion, dental problem, ear discharge, ear pain, hearing loss, nosebleeds, rhinorrhea, sore throat, tinnitus and trouble swallowing. Eyes: Negative for pain, discharge and visual disturbance (wears glasses). Respiratory: Negative for cough, choking, shortness of breath and wheezing. Cardiovascular: Negative for chest pain, palpitations, leg swelling, PND and orthopnea. Gastrointestinal: Negative for nausea, vomiting, abdominal pain, diarrhea, constipation, blood in stool, anal bleeding, rectal pain and black tarry stool. Endocrine: Negative for polydipsia, polyphagia and polyuria. Genitourinary: Negative for dysuria, urgency, frequency, hematuria, decreased urine volume and enuresis. Musculoskeletal: Negative for myalgias, joint swelling and arthralgias. Skin: Negative for rash. Neurological: Negative for dizziness, seizures, syncope, speech difficulty, weakness, light-headedness, numbness and headaches. Hematological: Does not bruise/bleed easily. Psychiatric/Behavioral: Negative for dysphoric mood, sleep disturbance and suicidal ideas. The patient is not nervous/anxious. Vital Signs BP 115/60 Pulse 86 Temp (!) 35.6 C (96.1 F) (Tympanic) Ht 172.7 cm (5' 8 ) Wt 66 kg (145 lb 8.1 oz) SpO2 95% No BMI 22.12 kg/m Labs/Diagnostics: Recent Results (from the past 24 hour(s)) Basic Metabolic Panel Collection Time: 06/06/23 11:08 AM Result Value Ref Range Sodium 144 134 - 146 mmol/L Potassium, Bld 3.7 3.5 - 5.0 mmol/L Chloride 108 98 - 109 mmol/L CO2 28 22 - 32 mmol/L Anion gap 8 5 - 15 mmol/L BUN 20 5 - 23 mg/dL Creatinine 0.73 0.40 - 1.00 mg/dL Glucose 85 65 - 99 mg/dL Calcium 9.6 8.5 - 10.5 mg/dL eGFR (CKD-EPI)non-race dependent >90 >59 ml/min/1.73sq.m Physical Exam Physical Exam Constitutional She is oriented to person, place, and time. She appears well-developed and well-nourished. HENT Head Normocephalic and atraumatic. Ears Right Ear: External ear normal. Left Ear: External ear normal. Nose Nose normal. Mouth/Throat Throat: Oropharynx: oropharynx clear and moist Able to visualize hard and soft palate and 1/4 tonsillar pillar Eyes: Conjunctivae and EOM are normal. Pupils are equal, round, and reactive to light. Right eye exhibits no discharge. Left eye exhibits no discharge. Neck Normal range of motion. Neck supple. Negative for thyromegaly. Cardiovascular: Normal rate and regular rhythm. No murmur heard. Pulses: intact distal pulses Heart Sounds: normal heart sounds. no JVDno friction rub Pulmonary/Chest: Effort normal and breath sounds normal. Abdominal: Bowel sounds are normal. She exhibits no distension and no mass. Soft. There is no abdominal tenderness. There is no rebound and no guarding. Musculoskeletal: General: No tenderness or edema. Normal range of motion. Cervical back: Normal range of motion and neck supple. Neurological She is alert and oriented to person, place, and time. Skin: Skin is warm and dry. Psychiatric: She has a normal mood and affect. Her behavior is normal. Judgment and thought content normal. Assessment Disorder of the urinary system Plan cystoscopy, bladder biopsy. SHAWNA Cason 06/06/23 1559 [facility] 06-06-2023 History and physical note PRE-OPERATIVE HISTORY AND PHYSICAL Exam Date: 06/06/23 Surgery Date: 06/14/23 PCP: SHAWNA Singh Surgeon: Chase Roberts MD CC: Disorder of the urinary system HPI: Priscilla Waters is a 52 y.o. female who presents for pre-op H&P for planned cystoscopy, bladder biopsy. She had a total hysterectomy on 05/05/23. During the procedure a bladder lesion was noted. She had her hysterectomy secondary to a history of endometrial thickening. This had been ongoing for several years. Each time, she would have an endometrial biopsy that was reportedly normal. She denies any dysuria, hematuria, urgency or frequency. She denies any abdominal or rectal pain. She denies any fever, chills or sweats. In a review of the record, she had a hysterectomy with cystoscopy and bilateral salpingectomy on 05/05/23 secondary to pelvic pain, postmenopausal bleeding and dyspareunia. A bladder tumor was found on the cystoscopy. She was seen by Dr. Roberts on 05/20/23 secondary to voiding dysfunction of 8 months duration and incomplete bladder emptying. According to the notes, she is a 2 para 2 delivering vaginally. No Known Allergies Prior to Admission medications Medication Sig Start Date End Date Taking? Authorizing Provider hydrOXYzine (ATARAX) 25 mg tablet Take 1 tablet (25 mg total) by mouth 3 (three) times a day as needed for anxiety. Yes Not In System Ref Prov traZODone (DESYREL) 100 mg tablet Take 1 tablet (100 mg total) by mouth nightly Indications: insomnia associated with depression. Yes Not In System Ref Prov History : Past Medical History: Diagnosis Date Anxiety Depressed Difficult intravenous access Gall stones Mass of bladder 2023 Needle phobia Thickened endometrium Past Surgical History: Procedure Laterality Date CHOLECYSTECTOMY 2016 D&C FIRST TRIMESTER / TX INCOMPLETE / MISSED / SEPTIC / INDUCED 2020 HYSTERECTOMY 2023 TONSILLECTOMY 1980 TUBAL LIGATION 1994 Family History Problem Relation Age of Onset Cervical cancer Mother 46 Heart disease Mother Early Mother Heart disease Father Alcohol abuse Father Alcohol abuse Sister Depression Sister Arthritis Sister Aneurysm Maternal Grandmother ALS Maternal Grandfather Heart failure Paternal Grandmother Bleeding Disorder Neg Hx Clotting disorder Neg Hx Anesthesia problems Neg Hx Breast cancer Neg Hx Ovarian cancer Neg Hx Colon cancer Neg Hx Diabetes Neg Hx Social History Socioeconomic History Marital status: Spouse name: Not on file Number of children: Not on file Years of education: Not on file Highest education level: Not on file Occupational History Not on file Tobacco Use Smoking status: Every Day Packs/day: 1.00 Years: 20.00 Additional pack years: 0.00 Total pack years: 20.00 Types: Cigarettes Start date: 04/04/1999 Passive exposure: Never Smokeless tobacco: Never Tobacco comments: 2023: eight/day Vaping Use Vaping Use: Never used Substance and Sexual Activity Alcohol use: Never Drug use: Never Sexual activity: Not on file Other Topics Concern Not on file Social History Narrative 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 Social Determinants of Health Financial Resource Strain: Not on file Food Insecurity: No Food Insecurity (06/06/2023) Hunger Screening Food Insecurity - Worry: Never True Food Insecurity - Inability: Never True Transportation Needs: Not on file Physical Activity: Not on file Stress: Not on file Social Connections: Not on file Interpersonal Safety: Not on file Housing Instability: Not on file Review of Systems Review of Systems Constitutional: Negative for fever, chills, diaphoresis, appetite change, fatigue and unexpected weight change. HENT: Negative for congestion, dental problem, ear discharge, ear pain, hearing loss, nosebleeds, rhinorrhea, sore throat, tinnitus and trouble swallowing. Eyes: Negative for pain, discharge and visual disturbance (wears glasses). Respiratory: Negative for cough, choking, shortness of breath and wheezing. Cardiovascular: Negative for chest pain, palpitations, leg swelling, PND and orthopnea. Gastrointestinal: Negative for nausea, vomiting, abdominal pain, diarrhea, constipation, blood in stool, anal bleeding, rectal pain and black tarry stool. Endocrine: Negative for polydipsia, polyphagia and polyuria. Genitourinary: Negative for dysuria, urgency, frequency, hematuria, decreased urine volume and enuresis. Musculoskeletal: Negative for myalgias, joint swelling and arthralgias. Skin: Negative for rash. Neurological: Negative for dizziness, seizures, syncope, speech difficulty, weakness, light-headedness, numbness and headaches. Hematological: Does not bruise/bleed easily. Psychiatric/Behavioral: Negative for dysphoric mood, sleep disturbance and suicidal ideas. The patient is not nervous/anxious. Vital Signs BP 115/60 Pulse 86 Temp (!) 35.6 C (96.1 F) (Tympanic) Ht 172.7 cm (5' 8 ) Wt 66 kg (145 lb 8.1 oz) SpO2 95% No BMI 22.12 kg/m Labs/Diagnostics: Recent Results (from the past 24 hour(s)) Basic Metabolic Panel Collection Time: 06/06/23 11:08 AM Result Value Ref Range Sodium 144 134 - 146 mmol/L Potassium, Bld 3.7 3.5 - 5.0 mmol/L Chloride 108 98 - 109 mmol/L CO2 28 22 - 32 mmol/L Anion gap 8 5 - 15 mmol/L BUN 20 5 - 23 mg/dL Creatinine 0.73 0.40 - 1.00 mg/dL Glucose 85 65 - 99 mg/dL Calcium 9.6 8.5 - 10.5 mg/dL eGFR (CKD-EPI)non-race dependent >90 >59 ml/min/1.73sq.m Physical Exam Physical Exam Constitutional She is oriented to person, place, and time. She appears well-developed and well-nourished. HENT Head Normocephalic and atraumatic. Ears Right Ear: External ear normal. Left Ear: External ear normal. Nose Nose normal. Mouth/Throat Throat: Oropharynx: oropharynx clear and moist Able to visualize hard and soft palate and 1/4 tonsillar pillar Eyes: Conjunctivae and EOM are normal. Pupils are equal, round, and reactive to light. Right eye exhibits no discharge. Left eye exhibits no discharge. Neck Normal range of motion. Neck supple. Negative for thyromegaly. Cardiovascular: Normal rate and regular rhythm. No murmur heard. Pulses: intact distal pulses Heart Sounds: normal heart sounds. no JVDno friction rub Pulmonary/Chest: Effort normal and breath sounds normal. Abdominal: Bowel sounds are normal. She exhibits no distension and no mass. Soft. There is no abdominal tenderness. There is no rebound and no guarding. Musculoskeletal: General: No tenderness or edema. Normal range of motion. Cervical back: Normal range of motion and neck supple. Neurological She is alert and oriented to person, place, and time. Skin: Skin is warm and dry. Psychiatric: She has a normal mood and affect. Her behavior is normal. Judgment and thought content normal. Assessment Disorder of the urinary system Plan cystoscopy, bladder biopsy. SHAWNA Cason 06/06/23 1559 documented in this encounter [facility] 06-06-2023 Instructions Radha Nixon RN - 06/06/2023 10:45 AM EST Your Procedure/Surgery is scheduled at [facility] on 06/14/23 [facility], [address] [place] [address] You will receive a phone call from [facility] the day before your surgery to verify your arrival time. If you have any questions prior to your surgery, please call Pre-Admission Clinic at [phone] between 7:30 am and 4:30 pm Tuesday through Tuesday. For questions the day of surgery, please call the Pre-op Department at [phone]. Notify your SURGEON if you develop any illness such as a cold, cough, fever, sore throat, vomiting or are hospitalized between now and your surgery. CONTINUE TO TAKE YOUR MEDICATIONS PRESCRIBED. DO NOT STOP YOUR PRESCRIBED MEDICATIONS UNLESS DIRECTED BY YOUR PRESCRIBING PHYSICIAN Take the following medications the morning of surgery with a sip of water: None Weight loss medications: None Take inhalers as prescribed the morning of surgery. . Blood thinners: Medications such as Coumadin, Heparin, Aspirin, Plavix, Eliquis, Pradaxa) Please contact your physician regarding a stop/hold date for these medications. Diabetics: If you take insulin, contact your prescribing doctor for instructions on how to manage this the night before and the morning of surgery. Non-steriodal Anti-Inflammatory Drugs (NSAIDS)- Stop 3 days prior to surgery unless otherwise directed by your surgeon. Tylenol ok. Vitamins/Herbal Products: You may continue to take your prescribed vitamins such as potassium, iron, vitamin B, vitamin C, or multivitamin unless specifically instructed by your surgeon to stop. STOP taking all herbal products/teas one week prior to your surgery. Marijuana: Stop marijuana 72 hours prior to surgery, stop CBD oil 48 hours prior to surgery. If you have been given bowel prep instructions by your surgeon, please call the surgeon's office with any questions about these instructions. What do I do the day of Surgery? Age 2 through adult - Stop all solids by midnight, You may have clear liquids up to 2 hours before surgery, unless otherwise instructed by your surgeon Clear liquids are: water, sports drinks such as Gatorade or G2, or apple juice. You may NOT have: tube feedings, dairy products, alcoholic beverages, orange juice, or any liquids with solids or pulp in it If applicable, shower again with CHG soap the morning of your surgery. If you received a green plastic bracelet, bring it with you the day of surgery and your nurse will put it on you. What do I need to do to prepare for surgery? If you will be going home the same day as your surgery, arrange for an adult over [address] If your transportation is by cab, uber, bus, you must be accompanied by somone over 18 years of age. You cannot ride alone. You should not smoke or drink alcohol 24 hours before your surgery. Do not wear lotion, cream, powder, perfume, make up, cologne or after-shaves day of surgery. Remove ALL jewelry including wedding rings, body piercings,hair extensions that contain metal,make-up, and contact lens. You may brush your teeth the morning of surgery. Wear your dentures and partial plates to the hospital (no adhesive). If applicable, the evening before surgery, shower with chlorhexidine gluconate (CHG soap). What should I bring to the hospital? If you received a green plastic bracelet, bring it with you the day of surgery and your nurse will put it on you. Eyeglass, contact lens and/or denture cases. If you will be spending the night, please bring personal care items and leave them in the car until you are taken to your room after surgery. Leave ALL valuables at home. If any of these instructions conflict with those you recieved from the surgeon, please seek clarification from your surgeon's office. DEEP BREATHING EXERCISES This exercise helps promote good air exchange and helps to prevent pneumonia after surgery. Breathe in slowly and deeply through the nose. Hold your breath for a few seconds and then exhale slowly through the mouth. Repeat this three times and then cough.Coughing helps to clear your lungs. If you have had a surgery with an incision into your abdomen or chest, press gently against your incision with a pillow or a folded blanket when you cough. Please be aware - it may not be ruiz to cough following some types of surgeries involving the eyes, ears, sinuses and throat. Always follow your doctor's instructions. LEG EXERCISE These exercises help promote good circulation and help to prevent blood clots after surgery. Point your toes to the ceiling and then point them to the wall. Do this slowly about 15-20 times. You may also move your feet in circles. Do the exercise that is most comfortable for you. If you have had surgery involving your shoulder or arm, we recommend you move your fingers. PRACTICING We ask that you begin practicing these exercises before your surgery. After surgery try to do both exercises at least every 2 hours during the day and early evening. Surgical Site Infection Prevention What is a Surgical Site Infection? Infection can happen to the area of the body where surgery is done. This is called a surgical site infection (SSI). A SSI does not happen very often. Can SSIs be treated? Antibiotics are used to treat SSI. Some patients may need another surgery to treat the infection. The doctor will discuss treatment options with you. What are some of the things that hospitals are doing to prevent SSIs? Soap and water or alcohol hand rub are used before and after caring for each patient. Special soap is used to clean surgery workers hands and arms just before the surgery. Masks, gowns, gloves and hair covers are worn during the surgery to keep the area clean. Hair in the surgery area may be removed with clippers (not razors). A special soap that kills germs is used to clean the skin at the surgery site. Antibiotics may be given before the surgery starts. What can you do to prevent SSIs? Before surgery: You may be asked to shower or bathe with a special soap that kills germs the night before and the day of surgery. Use the soap as you were told. If you smoke, stop or cut down. Ask your doctor about ways to quit. Do not shave near where you will have surgery. Shaving can irritate the skin and make it easier to get and infection. After surgery: Be sure that the doctors and nurses clean their hands before and after touching you. Be sure your family and friends clean their hands before and after visiting you. Do not be afraid to remind them. * Care for your wound at home as told by your doctor or nurse * Call your doctor right away if you have fever, redness, increased pain, or drainage at the surgery site. Further questions? Contact the doctor, nurse or the Infection Prevention and Control department if you have any questions. PATIENT RIGHTS AND RESPONSIBILITIES As a patient at [facility], you have the right to: Receive medical care and be informed of who is taking care of you Be treated with dignity and respect Have a family member/insurance account representative of choice and your physician notified of your admission Receive information and actively participate in decisions about your care and treatment Refuse care, treatment and services Decide who may provide your support and speak for you Access jewish and spiritual services Participate in ethical issues and questions about your care Receive private and confidential care Have appropriate assessment and management of your pain Know guest visitation restrictions or limitations Have an advance directive Access protective services Consent or refuse to participate in research studies or production or recordings, films or other images Have resolution of your complaints Receive information of hospital charges and payment methods Patient/patient insurance account representative responsibilities are to: Provide information about health status to facilitate care, treatment and services Follow the treatment, plan, keep appointments and speak up when you do not understand the plan Respect the rights of other patients and healthcare personnel Follow organizational rules and regulations that support quality care and a safe environment Fulfill financial obligations as promptly as possible documented in this encounter [facility] 05-25-2023 Miscellaneous Notes ----- Message from Chase Roberts MD sent at 05/20/2023 5:06 PM EST ----- Please schedule this patient for Cysto and bladder Biopsy under MAC [place] CALLED PATIENT FOR SCHEDULING. HAD TO LEAVE A VM. RETURNED PATIENTS CALL HAD TO LEAVE A VM SPOKE WITH PATIENT SCHEDULED FOLLOWS: PAT - AT 1045AM SURG - 06/14/2023 PATIENT TO ARRIVE AT 815AM F/U- 07/15/2023 AT 2PM LETTER TO PATIENT INTO MY CHART. DR ROBERTS: ARIAS documented in this encounter [facility] 05-25-2023 Telephone encounter Note ----- Message from Chase Roberts MD sent at 05/20/2023 5:06 PM EST ----- Please schedule this patient for Cysto and bladder Biopsy under MAC at [place] [facility] 05-25-2023 Telephone encounter Note CALLED PATIENT FOR SCHEDULING. HAD TO LEAVE A VM. [facility] 05-25-2023 Telephone encounter Note RETURNED PATIENTS CALL HAD TO LEAVE A VM [facility] 05-25-2023 Telephone encounter Note SPOKE WITH PATIENT SCHEDULED FOLLOWS: PAT - AT 1045AM SURG - 06/14/2023 PATIENT TO ARRIVE AT 815AM F/U- 07/15/2023 AT 2PM LETTER TO PATIENT INTO MY CHART. DR ROBERTS: ARIAS [facility] 05-20-2023 History of Presen t illness Narrative [...] bottles of water a OCCUPATION: Works for [employer] MEDICATIONS: Current Outpatient Medications: hydrOXYzine (ATARAX) 25 [...] procedures Referring and communicating with other health reproductive healthcare assistant (not separately reported) Documenting clinical information in the electronic or other health record . documented in this encounter [facility] 05-20-2023 Instructions Chase Roberts MD - 05/20/2023 4:00 PM EST Please follow-up for cystoscopy documented in this encounter [facility] 05-12-2023 History of Presen t illness [...] Diagnosis Date Breast cancer screening by mammogram 2016 No family history on file. Social History [...] of infection. Pt referred to urology in [place] due to possible bladder tumor found during cystoscopy. Pt will follow up in 4 weeks for 6 week post op appt and vaginal cuff exam Follow Up: Patient is to return in 5 weeks for 6 week evaluation. Documented by ALLIE Roque on behalf of: ALLIE Roque documented in this encounter [facility] 10-16-[address] Bravo referral [...] of recent labs. -Obtain outside labs of BMP to eval renal function. If elevated will [...] Information Rober SANDHU, Crystal Pierce, URL, U[facility] [address], [place] [phone] Additional Instructions: Patient Education Urodynamic Testing IAurelia, personally scribed for _ on 10/16/2021 15:26:15. . Documentation recorded by the Aurelia hayes a (more content not included)... [facility] Comment on above: Result Comment: Elec tronically Signed By: Crystal Richter MD\.br\Date and Time Signed: 10/16/21 18:50 EDT 10-16-2021 [...] including vitamins, herbs, eye drops, creams, and hhpq-zyq-ycdgada medicines. ?Whether you are or may be [...] 01/16/2008 Document Revised: 07/10/2019 Document Reviewed: 01/23/2018 [employer] Patient Education 2020 [employer]. Follow Up Care 10/08/2021 10:43:51 With:Rober SANDHU, VIRGIL Quinones, URO Address: [facility] [address], [place] [address] [phone] When: Unknown [facility] Evaluation + Plan note No data available for this section [facility] Evaluation note No assessment inform ation available [facility] Work Phone: Evaluation note Diagnosis Postoperative examination Follow-up examination, following unspecified surgery [facility] Diagnosis Disorder of urinary system, unspecified [facility] Disorder of urinary system, unspecified Mass of bladder Disorder of urinary system, unspecified Mass of bladder Disorder of urinary system, unspecified Mass of bladder [facility] filed[facility]ed [facility] No data available for this section [facility] Juan Summary Purpose Family History No Family [...] and content) DATE CREATED AUTHOR 09/08/2021 [facility] DATE CREATED AUTHOR AUTHOR'S ORGANIZ ATION 10/26/2021 [facility] DATE CREATED AUTHOR AUTHOR'S ORGANIZ ATION 05/10/2023 [facility] DATE CREATED AUTHOR AUTHOR'S ORGANIZ ATION 06/05/2023 [facility] EPIC DATE CREATED AUTHOR AUTHOR'S ORGANIZ ATION 06/15/2023 [facility] Care Team (unrecognized sect ion and content) Team Status: Inactive Member Role Status Dates Manny Keller Attending Provider Active Start: brandie 2023 End: May 05, 2023 Linen Aide Relationship Specialty Start Date End Date Manny Keller DO [address] [place] [address] [place] [address] PCP - [employer] 04/04/23 Linen Aide Relationship Specialty Start Date End Date John Flores APRN-CNP [address] [place] [address] PCP - General Primary Care 05/20/23 Linen Aide Relationship Specialty Start Date End Date John Flores APRN-CNP [address] [place] [address] PCP - General Primary Care 05/20/23 Goals (unrecognized section and content) Goals may be documented in a n alternate section Reason for Visit (unrecogniz ed section and content) Reason Comments Post-op Visit Robotic assisted hys t 05/05/2023 Reason Comments New Patient Specialty Diagnoses / Procedures Referred By Porfirio portillo Referred To Contact Urology Diagnoses Disorder of urinary system, unspecified Tien John, [employer] [address] [place] [address] [facility] [address] [place] [address] [place] [address] Referral ID Status Reason Start Date Expiration Date Visits Requested Visits Authorized [id number] Pending Review Specialty Services Required 3 03/14/2024 [...] BE BASED ON THE PRIMARY CLINICAL RECORDS. [employer] provides no warranty or guarantee of the accuracy or completeness of information in this document.
--- NOTE | 2023-09-19 19:17 | ED_ITS ---
HPI HPI - General Adult General Chief complaint: Nausea/Vomiting/Diarrhea Stated complaint: Nausea/Vomiting, Diarrhea Time Seen by Provider: 09/19/23 19:08 Source: patient Mode of arrival: walk-in Limitations: no limitations History of Present Illness HPI narrative: Patient is a 53-year-old female who presents to the emergency department for abdominal pain, vomiting and diarrhea that began last night. She states she has had both dark tarry stool and bright red blood in her stool with red blood clots. She has had no fevers or upper respiratory symptoms. She reports an equal amount of diarrhea and vomiting episodes, approximately 8-10 of each. She has never had a colonoscopy but states she did complete a Cologuard screening about 6 months ago that was unremarkable. She has home Zofran due to a history of anxiety and vomiting and states she tried to take Zofran for the vomiting but continued to vomit up the medication. She reports pain in the left lower quadrant radiating to the suprapubic abdomen and left flank. She has had a previous hysterectomy and previous cholecystectomy. She is not anticoagulated Related Data Home Medications ?Medication ?Instructions ?Recorded ?Confirmed semaglutide (weight loss) 1.7 mg subcut 04/29/23 mg/0.75 mL subcutaneous pen injector (Wegovy) sertraline 100 mg tablet 100 mg PO Q24H 04/29/23 05/05/23 trazodone 100 mg tablet 100 mg PO .qnoc 04/29/23 05/05/23 Previous Rx's ?Medication ?Instructions ?Recorded docusate sodium 100 mg capsule 100 mg PO BID #60 caps 05/06/23 (Colace) ibuprofen 800 mg tablet 800 mg PO Q8H PRN pain 14 days #40 05/06/23 tabs oxycodone-acetaminophen 5 mg-325 1 tab PO Q6H PRN pain 7 days #28 05/06/23 mg tablet (Percocet) tabs Allergies Allergy/AdvReac Type Severity Reaction Status Date / Time No Known Drug Allergies Allergy Verified 04/29/23 13:02 Opioid HPI Opioid Management Most Recent Opioid Data: Last Pain Scale 8 09/19/23 19:46 Last MAR Pain Assessment 09/19/23 19:46 Review of Systems ROS Constitutional Denies: fever or chills Ears, nose, mouth, and throat Denies: throat pain or nasal congestion Cardiovascular Denies: chest pain Respiratory Denies: shortness of breath Gastrointestinal Reports: abdominal pain, nausea, vomiting and diarrhea Musculoskeletal Reports: back pain; Denies: neck pain Integumentary/Breast Denies: rash Neurological Denies: headache Hematologic/Lymphatic Denies: easy bruising or easy bleeding PFSH PFSH Medical History (Updated 09/19/23 @ 21:19 by ALLIE Tomlin) Menopausal state ?N95.1 - Menopausal and female climacteric states (ICD-10) Pelvic pain ?R10.2 - Pelvic and perineal pain (ICD-10) Menorrhagia ?N92.0 - Excessive and frequent menstruation with regular cycle (ICD-10) Surgical History (Updated 04/29/23 @ 13:14 by Deja Williamson RN) Hx laparoscopic cholecystectomy ?Z90.49 - Acquired absence of other specified parts of digestive tract (ICD- 10) H/O tubal ligation ?Z98.51 - Tubal ligation status (ICD-10) H/O cervical biopsy ?Z98.890 - Other specified postprocedural states (ICD-10) History of endometrial ablation ?Z98.890 - Other specified postprocedural states (ICD-10) Family History (Updated 04/29/23 @ 12:55 by Deja Williamson RN) Other Family history of cancer Family history of hypertension Family history of myocardial infarction Social History Within the past year, how often did you have a drink containing alcohol: never Within the past year, how often did you have six or more drinks on one occasion: never Score interpretation: A score less than 3 is consistent with normal alcohol consumption. 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 Known occupational exposures/hazards: No Highest level of school completed/degree received: high school graduate Exam Narrative Exam Narrative: Gen.: Awake, alert, in no distress Head: Normocephalic, atraumatic ENT: Moist mucous membranes Respiratory: No respiratory distress, lungs clear bilaterally Cardio: Regular rate and rhythm Gastrointestinal: Abdomen is soft, nondistended and Moderately tender in the left upper quadrant and left lower quadrant with voluntary guarding, no rebound Extremities: Moves extremities equally, no injuries noted Psych: Normal mood and affect Neuro: No focal neuro deficit Skin: Warm, dry, intact Constitutional Vital Signs, click to edit/add: Last Vital Signs Temp 98.8 F 09/19/23 18:57 Pulse 65 09/19/23 21:04 Resp 18 09/19/23 21:04 BP 101/58 09/19/23 21:04 Pulse Ox 98 09/19/23 21:04 O2 Del Method Room Air 09/19/23 20:17 Course Vital Signs Vital signs: Vital Signs Temperature 98.8 F 09/19/23 18:57 Pulse Rate 88 09/19/23 18:57 Respiratory Rate 17 09/19/23 18:57 Blood Pressure 134/90 09/19/23 18:57 Pulse Oximetry 96 09/19/23 18:57 Temperature 98.8 F 09/19/23 18:57 Pulse Rate 65 09/19/23 21:04 Respiratory Rate 18 09/19/23 21:04 Blood Pressure 101/58 09/19/23 21:04 Pulse Oximetry 98 09/19/23 21:04 Oxygen Delivery Method Room Air 09/19/23 20:17 Medical Decision Making MDM Narrative Medical decision making narrative: Patient was stable vital signs on arrival, she reports significant vomiting and diarrhea with bloody stool today. Labs, type and screen were ordered for the patient with IV fluids, pain medication and nausea medication. She is resting more comfortably on reevaluation, however she still reports significant pain to the left abdomen. CT with IV contrast shows the patient has acute long segment colitis with no evidence of abscess or perforation. Radiologist raises concern for ischemic colitis, patient has normal lactic acid. She was given additional pain medication, IV Cipro and Flagyl. We will admit the patient for pain control, IV fluids, nausea control. Admitted to the hospitalist service in stable condition. Medical Records Medical records reviewed: Yes I reviewed the patient's medical records Lab Data Lab results reviewed: Yes I reviewed the patient's lab results Labs: Lab Results 09/19/23 09/19/23 Range/Units 19:23 19:25 WBC 16.5 H (4.0-11.0) 10^3/uL RBC 4.24 (4.20-5.40) 10^6/uL Hgb 13.4 (12.0-16.0) g/dL Hct 39.3 (36.0-48.0) % MCV 92.7 (81.0-99.0) fL MCH 31.6 (26.7-34.0) pg MCHC 34.1 (29.9-35.2) g/dL RDW 14.6 (11.0-15.0) % Plt Count 191 (150-450) 10^3/uL MPV 9.4 L (9.5-13.5) fL Neut % (Auto) 85.8 H (43.0-75.0) % Lymph % (Auto) 8.9 L (20.5-60.0) % [place] % (Auto) 4.5 (1.7-12.0) % Eos % (Auto) 0.1 L (0.9-7.0) % Baso % (Auto) 0.4 (0.2-2.0) % Neut # (Auto) 14.2 H (1.4-6.5) 10^3/uL Lymph # (Auto) 1.5 (1.2-3.8) 10^3/uL [place] # (Auto) 0.7 (0.3-0.8) 10^3/uL Eos # (Auto) 0.0 (0.0-0.7) 10^3/uL Baso # (Auto) 0.1 (0.0-0.1) 10^3/uL Abs Immat Gran (auto) 0.05 H (0.00-0.03) 10^3/uL Imm/Tot Granulo (auto) 0.3 (0.0-0.5) % PT 11.2 (9.0-11.6) sec INR 1.06 Sodium 137 (136-145) mmol/L Potassium 3.8 (3.5-5.1) mmol/L Chloride 103 (98-107) mmol/L Carbon Dioxide 26.8 (21.0-32.0) mmol/L Anion Gap 11.0 BUN 12.0 (7.0-18.0) mg/dL Creatinine 0.94 (0.55-1.02) mg/dL Est GFR ( Amer) >60 (>=60) Est GFR (Non-Af Amer) >60 (>=60) BUN/Creatinine Ratio 12.8 Glucose 103 (74-106) mg/dL Lactate 0.9 (0.4-2.0) mmol/L Calcium 8.9 (8.5-10.1) mg/dL Total Bilirubin 0.8 (0.2-1.0) mg/dL AST 14 L (15-37) U/L ALT 16 (14-59) U/L Alkaline Phosphatase 62 (46-116) U/L Total Protein 7.0 (6.4-8.2) g/dL Albumin 3.5 (3.4-5.0) g/dL Globulin 3.5 g/dL Albumin/Globulin Ratio 1.0 Urine Color Lt. yellow (YELLOW) Urine Clarity Clear (CLEAR) Urine pH 6.0 (5.0-9.0) Ur Specific [place] 1.010 (1.005-1.025) Urine Protein Negative (NEG/TRACE) mg/dL Urine Glucose (UA) Negative (NEGATIVE) mg/dL Urine Ketones Trace A (NEGATIVE) mg/dL Urine Occult Blood Negative (NEGATIVE) Urine Nitrite Negative (NEGATIVE) Urine Bilirubin Negative (NEGATIVE) Urine Urobilinogen 0.2 (0.2-1.0) EU/dL Ur Leukocyte Esterase Negative (NEGATIVE) Blood Type A Positive Antibody Screen Negative Imaging Data CT scan - abdomen: Attestation: I have reviewed the pertinent imaging results. Radiologist's impression: ITS Impressions Abdomen/Pelvis CT 09/19/23 19:08 IMPRESSION: 1. Acute long segment colitis involving the left hemicolon including descending and sigmoid large bowel beginning at hepatic flexure extending to the distal sigmoid. Uncertain etiology. Correlate for infection versus inflammatory bowel disease (ulcerative colitis/Crohn's) or possibly ischemia colitis. Correlate with patient's history and labs including lactic acid. No bowel obstruction. Sparing of right hemicolon most of transverse colon. 2. Cholecystectomy with prominent intrahepatic and extrahepatic bile duct distention which may be related to prior cholecystectomy procedure. Correlate with normal biliary labs. If abnormal and suggest further evaluation with MRCP and/or ERCP. Electronically authenticated by: RAINA FRANCES Date: 09/19/2023 20:53 Discharge Plan Discharge Chief Complaint: Nausea/Vomiting/Diarrhea Clinical Impression: Colitis, Nausea, vomiting and diarrhea Patient Disposition: Admitted as Observation Time of Disposition Decision: 21:19 Condition: Good Prescriptions / Home Meds: No Action trazodone 100 mg tablet 100 mg PO .qnoc sertraline 100 mg tablet 100 mg PO Q24H Wegovy 1.7 mg/0.75 mL pen injector SUBCUT ibuprofen 800 mg tablet 800 mg PO Q8H PRN (Reason: pain) 14 Days Qty: 40 0RF oxycodone-acetaminophen [Percocet] 5-325 mg tablet 1 tab PO Q6H PRN (Reason: pain) 7 Days Qty: 28 0RF docusate sodium [Colace] 100 mg capsule 100 mg PO BID Qty: 60 0RF Print Language: Bahamian Referrals: Blake Keller DO [Primary Care Provider] - 1 week
[2023-09-19 19:32] LABS: Bilirubin Urine NEGATIVE (NEGATIVE); Blood Urine NEGATIVE (NEGATIVE); Clarity Urine CLEAR (CLEAR); Color Urine LT. YELLOW (YELLOW); Glucose Urine UA NEGATIVE (NEGATIVE); Ketones Urine TRACE mg/dL (NEGATIVE); Leukocyte Esterase Urine NEGATIVE (NEGATIVE); Nitrite Urine NEGATIVE (NEGATIVE); Protein Urine NEGATIVE (NEG/TRACE); Urobilinogen Urine 0.2 EU/dL (0.2-1.0)
[2023-09-19 19:33] LABS: Basophils Absolute Auto 0.1 10^3/uL (0.0-0.1); Basophils Percent Auto 0.4 % (0.2-2.0); Eosinophils Percent Auto 0.1 % (0.9-7.0); Hematocrit 39.3 % (36.0-48.0); Hemoglobin 13.4 g/dL (12.0-16.0); Immature Granulocytes Abs Auto 0.05 10^3/uL (0.00-0.03); Immature Granulocytes Pct Auto 0.3 % (0.0-0.5); Lymphocytes Absolute Auto 1.5 10^3/uL (1.2-3.8); Lymphocytes Percent Auto 8.9 % (20.5-60.0); Mean Corpuscular HGB Conc 34.1 g/dL (29.9-35.2); Mean Corpuscular Hemoglobin 31.6 pg (26.7-34.0); Mean Corpuscular Volume 92.7 fL (81.0-99.0); Mean Platelet Volume 9.4 fL (9.5-13.5); Monocytes Absolute Auto 0.7 10^3/uL (0.3-0.8); Monocytes Percent Auto 4.5 % (1.7-12.0); Neutrophils Absolute Auto 14.2 10^3/uL (1.4-6.5); Neutrophils Percent Auto 85.8 % (43.0-75.0); Platelet Count 191 10^3/uL (150-450); Red Blood Count 4.24 10^6/uL (4.20-5.40); Red Cell Distribution Width 14.6 % (11.0-15.0); White Blood Count 16.5 10^3/uL (4.0-11.0)
[2023-09-19 19:41] LABS: Urine Microscopic Indicated NO
[2023-09-19] MEDS: ONDANSETRON PF 4 MG/2 ML VIAL IV (19:43)
[2023-09-19] MEDS: 0.9 % SODIUM CHLORIDE 1,000 ML 999 ML IV (19:43)
[2023-09-19 19:46] LABS: INR 1.06; Prothrombin Time 11.2 sec (9.0-11.6)
[2023-09-19] MEDS: FENTANYL CITRATE/PF 100 MCG/2 ML VIAL 50 MCG IV (19:46)
[2023-09-19 19:47] LABS: Alanine Aminotransferase 16 U/L (14-59); Albumin Level 3.5 g/dL (3.4-5.0); Alkaline Phosphatase 62 U/L (46-116); Aspartate Amino Transferase 14 U/L (15-37); BUN Creatinine Ratio 12.8; Bilirubin Total 0.8 mg/dL (0.2-1.0); Calcium 8.9 mg/dL (8.5-10.1); Carbon Dioxide 26.8 mmol/L (21.0-32.0); Chloride 103 mmol/L (98-107); Estimated GFR (African America >60 (>=60); Estimated GFR (Non-African Ame >60 (>=60); Globulin 3.5 g/dL; Glucose 103 mg/dL (74-106); Potassium 3.8 mmol/L (3.5-5.1); Sodium 137 mmol/L (136-145)
[2023-09-19 19:55] LABS: Lactate/Lactic Acid 0.9 mmol/L (0.4-2.0)
[2023-09-19] MEDS: HYDROMORPHONE HCL 0.5 MG/0.5 ML SYRINGE IV (21:45)
[2023-09-19] MEDS: CIPROFLOXACIN IN 5 % DEXTROSE 400 MG/200 ML PIGGYBACK 200 MG IV (21:46)
[2023-09-19] MEDS: METRONIDAZOLE/SODIUM CHLORIDE 500 MG/100 ML PREMIX 100 MG IV (23:01)
[2023-09-20] VITALS (19 sets, daily range): BP systolic 89–102; BP diastolic 52–62; PULSE 59–82; TEMP 36.6–36.8; O2SAT 68–95; BMI 21.3
[2023-09-20] MEDS: 0.9 % SODIUM CHLORIDE 1,000 ML 125 ML IV ×4 (01:39→20:40)
[2023-09-20] MEDS: ONDANSETRON PF 4 MG/2 ML VIAL IV ×3 (01:40→10:00)
[2023-09-20] MEDS: MORPHINE SULFATE 2 MG/ML SYRINGE IV ×2 (01:40→05:34)
[2023-09-20] MEDS: PANTOPRAZOLE SODIUM 40 MG VIAL IV ×2 (03:01→14:20)
[2023-09-20] MEDS: METRONIDAZOLE/SODIUM CHLORIDE 500 MG/100 ML PREMIX 100 MG IV (05:30)
[2023-09-20 05:41] LABS: Basophils Absolute Auto 0.1 10^3/uL (0.0-0.1); Basophils Percent Auto 0.5 % (0.2-2.0); Eosinophils Absolute Auto 0.2 10^3/uL (0.0-0.7); Eosinophils Percent Auto 0.9 % (0.9-7.0); Hematocrit 38.6 % (36.0-48.0); Hemoglobin 12.3 g/dL (12.0-16.0); Immature Granulocytes Abs Auto 0.06 10^3/uL (0.00-0.03); Immature Granulocytes Pct Auto 0.3 % (0.0-0.5); Lymphocytes Absolute Auto 3.1 10^3/uL (1.2-3.8); Lymphocytes Percent Auto 17.4 % (20.5-60.0); Mean Corpuscular HGB Conc 31.9 g/dL (29.9-35.2); Mean Corpuscular Hemoglobin 30.8 pg (26.7-34.0); Mean Corpuscular Volume 96.5 fL (81.0-99.0); Mean Platelet Volume 10.2 fL (9.5-13.5); Monocytes Absolute Auto 1.1 10^3/uL (0.3-0.8); Monocytes Percent Auto 6.1 % (1.7-12.0); Neutrophils Absolute Auto 13.4 10^3/uL (1.4-6.5); Neutrophils Percent Auto 74.8 % (43.0-75.0); Platelet Count 204 10^3/uL (150-450); Red Cell Distribution Width 14.8 % (11.0-15.0)
[2023-09-20 05:49] LABS: Alanine Aminotransferase 13 U/L (14-59); Albumin Globulin Ratio 0.9; Albumin Level 3.2 g/dL (3.4-5.0); Alkaline Phosphatase 61 U/L (46-116); Anion Gap 10.9; Aspartate Amino Transferase 16 U/L (15-37); BUN Creatinine Ratio 12.4; Calcium 8.6 mg/dL (8.5-10.1); Carbon Dioxide 25.8 mmol/L (21.0-32.0); Chloride 105 mmol/L (98-107); Estimated GFR (African America >60 (>=60); Estimated GFR (Non-African Ame >60 (>=60); Globulin 3.4 g/dL; Glucose 72 mg/dL (74-106); Potassium 3.7 mmol/L (3.5-5.1); Sodium 138 mmol/L (136-145); Total Protein 6.6 g/dL (6.4-8.2)
[2023-09-20] MEDS: SERTRALINE HCL 100 MG TABLET 150 MG PO (09:59)
[2023-09-20] MEDS: OXYCODONE HCL/ACETAMINOPHEN 5MG/325MG 1 TAB PO (09:59)
[2023-09-20] MEDS: PIPERACILLIN SODIUM/TAZOBACTAM 3.375 GM in 0.9 % SODIUM CHLORIDE 50 ML IV ×2 (10:05→17:12)
--- NOTE | 2023-09-20 10:08 | P.HP_ITS ---
<Statement entered by Kmaila Stevenson, - 09/20/23 13:14> This documentation has been reviewed and approved.I have also seen and evaluated patient at the time of admission and agree with the above findings, assessments and plan of care. HPI H&P: HPI History of Present Illness Chief complaint: Nausea/Vomiting, Diarrhea Narrative: 09/20/23 0845 This is a 53-year-old female patient with a past medical history significant for profound depression with psychotic features, who presented to the ED last night complaining of abrupt onset of abdominal pain, vomiting, and diarrhea on 09/18/2023. The patient reports that she had been feeling fine throughout the day on 616. 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 She experienced abrupt onset of stomach cramps around 830 followed shortly with vomiting and diarrhea. Her stools were maroon-colored with some bright red with wiping. She experienced 8-10 episodes of vomiting and diarrhea throughout the night on the . As her symptoms persisted throughout the day yesterday she eventually presented to the ED last night for further evaluation. Workup in the ED revealed leukocytosis (16.5), but her other labs were unremarkable. A CT of the abdomen revealed acute left hemicolon colitis. A lactic acid was normal and ischemic colitis is not strongly suspected. She was admitted last night in observation for acute infectious colitis. At the time of my exam the patient is resting comfortably in bed. She reports resolution of her vomiting and diarrhea with her last episodes occurring yesterday afternoon prior to presenting to the ED. The patient denies fevers at home but did feel clammy and had chills. She denies mucoid stools but did note that her diarrhea was burgundy with clots and some bright red. Stool studies and fecal occult blood have been ordered but the patient has not produced a stool since arrival in the hospital. Her blood pressure is soft this morning and her white count ladi to 18.0, thus we have broadened her antibiotic with Zosyn and have discontinued Cipro and Flagyl. Due to the patient's soft BPs and risk for sepsis, we have changed her to inpatient status as we expect at least 1 more midnight stay and possibly 2. The patient's diet has been advanced to a clear liquid diet and we will monitor her response. Opioid HPI Opioid Management Most Recent Pain and Opioid Data: Last Pain Scale 7 09/20/23 07:30 Last Pain Assessment 09/20/23 06:07 Last MAR Pain Assessment 09/20/23 07:30 Last ORT Total Score 2 09/20/23 00:00 Last ORT Risk Category Low Risk 09/20/23 00:00 Review of Systems ROS Status of ROS 10 or more systems reviewed and unremark able except as noted in history and below PFSH PFSH Medical History (Updated 09/20/23 @ 10:42 by Diane King NP) Depression ?F32.A - Depression, unspecified (ICD-10) Menopausal state ?N95.1 - Menopausal and female climacteric states (ICD-10) Pelvic pain ?R10.2 - Pelvic and perineal pain (ICD-10) Menorrhagia ?N92.0 - Excessive and frequent menstruation with regular cycle (ICD-10) Surgical History (Updated 04/29/23 @ 13:14 by Deja Williamson RN) Hx laparoscopic cholecystectomy ?Z90.49 - Acquired absence of other specified parts of digestive tract (ICD- 10) H/O tubal ligation ?Z98.51 - Tubal ligation status (ICD-10) H/O cervical biopsy ?Z98.890 - Other specified postprocedural states (ICD-10) History of endometrial ablation ?Z98.890 - Other specified postprocedural states (ICD-10) Family History (Updated 04/29/23 @ 12:55 by Deja Williamson, [place]) Other Family history of cancer Family history of hypertension Family history of myocardial infarction Social History Within the past year, how often did you have a drink containing alcohol: never Within the past year, how often did you have six or more drinks on one occasion: never Score interpretation: A score less than 3 is consistent with normal alcohol consumption. Smoking status: Current every day smoker Second hand tobacco smoke exposure: No Non-prescribed substance use: denies use Previous occupational history: [employer] Known occupational exposures/hazards: No Highest level of school completed/degree received: GED or equivalent Do you think of yourself as: straight/heterosexual Gender Identity: female Meds Home Medications and Allergies Home Medications ?Medication ?Instructions ?Recorded ?Confirmed ?Type sertraline 100 mg tablet 150 mg PO DAILY 04/29/23 09/20/23 History aripiprazole 2 mg tablet 2 mg PO .QHS 09/20/23 09/20/23 History clindamycin phosphate 1 % lotion 1 applic topical DAILY 09/20/23 09/20/23 History tirzepatide (weight loss) 2.5 2.5 mg subcut .WEEKLY 09/20/23 09/20/23 History mg/0.5 mL subcutaneous pen injector (Zepbound) trazodone 150 mg tablet 150 mg PO .QHS PRN sleep 09/20/23 09/20/23 History Allergies Allergy/AdvReac Type Severity Reaction Status Date / Time No Known Drug Allergies Allergy Verified 04/29/23 13:02 Exam Constitutional Vital Signs, click to edit/add: Last Vital Signs Temp 97.9 F 09/20/23 08:56 Pulse 60 09/20/23 10:00 Resp 18 09/20/23 05:38 BP 89/52 09/20/23 08:56 Pulse Ox 68 L 09/20/23 08:56 O2 Del Method Room Air 09/20/23 05:38 Common normals: no apparent distress, oriented x3, alert and well nourished General appearance: cooperative Orientation/consciousness: Yes awake HENMT Common normals: normocephalic, head/scalp atraumatic, hearing grossly normal bilaterally, external nose normal and moist oral mucous membranes Eye Common normals: PERRL, EOMs intact bilaterally, conjunctivae normal and no scleral icterus Alignment: alignment normal Eyelid: eyelids normal Neck & C-Spine Common normals: full ROM, supple and no JVD Chest Common normals: inspection of chest normal Chest: symmetrical chest wall rise Respiratory Common normals: normal respiratory effort, no retractions, no use of accessory muscles and clear to auscultation bilaterally Effort & inspection: able to speak in complete sentences Cardio Common normals: no JVD, regular rate, regular rhythm, S1 normal heart sound, S2 normal heart sound, no gallops, no clicks, no murmurs, no rub and peripheral pulses 2+ throughout GI Common normals: Normal to inspection, nondistended, normoactive bowel sounds present, soft to palpation, no hepatosplenomegaly, no masses and no bruits Palpation: tender Details: LLQ (Greatest) and LUQ and rebound tenderness present; no guarding and not rigid Bladder/kidney exam: bladder normal to palpation Back & Pelvis Common normals: thoracic and lumbar spine normal to inspection Extremity Common normals: normal capillary refill and no pedal edema General: normal exam except as noted; no clubbing and no cyanosis Neuro Mario Coma Scale: GCS not evaluated Common normals: CN's II-XII intact bilaterally, moves all extremities, no focal motor deficits and no sensory deficits noted Speech: speech normal Motor exam: strength 5/5 throughout Psych Common normals: mental status grossly normal, thought process normal, affect normal and activity/motor behavior normal Results Labs Labs: Short CBC 09/19/23 09/20/23 Range/Units 19:23 04:21 WBC 16.5 H 18.0 H (4.0-11.0) 10^3/uL Hgb 13.4 12.3 (12.0-16.0) g/dL Hct 39.3 38.6 (36.0-48.0) % Plt Count 191 204 (150-450) 10^3/uL BMP 09/19/23 09/20/23 19:23 04:21 Sodium 137 138 Potassium 3.8 3.7 Chloride 103 105 Carbon Dioxide 26.8 25.8 BUN 12.0 11.0 Creatinine 0.94 0.89 Glucose 103 72 L Calcium 8.9 8.6 Liver Function 09/19/23 09/20/23 Range/Units 19:23 04:21 Total Bilirubin 0.8 1.0 (0.2-1.0) mg/dL AST 14 L 16 (15-37) U/L ALT 16 13 L (14-59) U/L Alkaline Phosphatase 62 61 (46-116) U/L Albumin 3.5 3.2 L (3.4-5.0) g/dL Urine 09/19/23 Range/Units 19:25 Urine Color Lt. yellow (YELLOW) Urine Clarity Clear (CLEAR) Urine pH 6.0 (5.0-9.0) Ur Specific [place] 1.010 (1.005-1.025) Urine Protein Negative (NEG/TRACE) mg/dL Urine Glucose (UA) Negative (NEGATIVE) mg/dL Pulse Oximetry Attestation: I have reviewed the pertinent pulse oximetry results. Imaging CT scan - abdomen: Attestation: I have reviewed the pertinent imaging results. Radiologist's impression: IMPRESSION: 1. Acute long segment colitis involving the left hemicolon including descending and sigmoid large bowel beginning at hepatic flexure extending to the distal sigmoid. Uncertain etiology. Correlate for infection versus inflammatory bowel disease (ulcerative colitis/Crohn's) or possibly ischemia colitis. Correlate with patient's history and labs including lactic acid. No bowel obstruction. Sparing of right hemicolon most of transverse colon. 2. Cholecystectomy with prominent intrahepatic and extrahepatic bile duct distention which may be related to prior cholecystectomy procedure. Correlate with normal biliary labs. If abnormal and suggest further evaluation with MRCP and/or ERCP. Assessment and Plan Assessment and Plan (1) Colitis: Assessment and Plan: Acute * Change to full inpatient admission * We expect greater than a 2 midnight stay for medically necessary hospital care including IV antibiotics, close monitoring of labs and VS, IVFs (bolus and maintenance) * Suspect infectious etiology - Leukocytosis/chills; associated hematochezia, but not mucoid stools; normal lactic acid * IVPB Cipro/Flagyl initiated in the ED - D/C d/t worsening leukocytosis * IVPB Zosyn q8h * C-diff and occult blood stool studies still pending collection - no output since arrival in the ED * Consider general surgery consult for possible colonoscopy pending clinical course * At risk for sepsis but does not currently meet threshold criteria * Give additional 1 liter IVF bolus for soft blood pressures this morning * continue NS IVF at 125/hr * Advance to clear liquid diet and monitor response * Zofran for nausea * Percocet PO or Morphine IVP for pain - attempt to use PO if possible for improved pain control * CBC, CMP daily (2) Depression: Assessment and Plan: Chronic * Continue home sertraline, trazodone, and Abilify
--- NOTE | 2023-09-20 10:15 | SWNOTE1 ---
SW was consulted to speak with pt about Advanced Directives. SW offered to complete HCPOA with pt or provide resources to pt. Pt does not want to complete HCPOA and does not want any information about it.
[2023-09-20] MEDS: 0.9 % SODIUM CHLORIDE 1,000 ML 1000 ML IV (10:16)
--- NOTE | 2023-09-20 12:31 | CM.NOTE ---
Rounds made with Dr. Stevenson. Advance diet to Clear Liquid diet. Obtain stool sample. No discharge today.
[2023-09-20] MEDS: OXYCODONE HCL/ACETAMINOPHEN 5MG/325MG 2 TAB PO ×2 (14:20→20:41)
[2023-09-20] MEDS: ARIPIPRAZOLE 2 MG TABLET PO (21:34)
[2023-09-21] VITALS (16 sets, daily range): BP systolic 104–123; BP diastolic 62–74; PULSE 58–67; TEMP 36.8–37.2; O2SAT 89–92
--- NOTE | 2023-09-21 | CONS_ITS ---
CONSULTATION CONSULTATION DATE: ??09/21/2023 CHIEF COMPLAINT:? Abdominal pain, nausea, vomiting, diarrhea, abnormal CT scan. HISTORY OF PRESENT ILLNESS:? Patient is a 53-year-old female with history of depression, who presented to the hospital two days ago with acute onset of nausea, vomiting and bloody diarrhea.? She reports that this began Tuesday, three days ago.? It was acute.? She had been fine all weekend, then after eating dinner, she developed acute onset of nausea, vomiting and diarrhea.? The diarrhea was initially watery and then became bloody and with dark black type stool.? She had 6-8 episodes, as well as some left sided abdominal pain.? She denies any ill contacts.? She has had no recent travel, no recent antibiotic therapy.? Her had the same food and had no ill effects.? She denies any new medications recently.? She does take Excedrin daily.? Denies any history of similar problems or problems with diarrhea in the past.? Workup in the emergency room revealed leukocytosis.? CT scan revealed evidence of a left sided colitis with inflammation and thickening of the colon, primarily left sided.? She also had evidence of a dilated common bile duct.? Past abdominal surgery significant for remote cholecystectomy, as well as hysterectomy.? Patient was admitted, hydrated, began presumptively on IV antibiotics.? Did have a persistent leukocytosis; however, today it is improving.? Her antibiotics were switched around yesterday to Zosyn.? She has had no loose stools since her presentation to the emergency room, so a stool sample was not able to be sent.? She also had no further nausea or vomiting.? She has been afebrile during her stay as well.? She has been advanced to a full liquid diet today.? Today, was noted to have a mild elevation of her transaminases and underwent a right upper quadrant ultrasound, which just revealed the dilated bile duct.? It is up to 2 cm.? However, she does have a normal alkaline phosphotase and normal bilirubin.? White blood cell count has come down to 13,000 today from 18,000.? Overall, patient feels that her pain has improved.? She did have a small amount of stool today that was sent for culture, just very recently.? ALLERGIES:? Patient has no known drug allergies. MEDICATION:? Her home medication includes aripiprazole, sertraline and trazodone. PAST SURGICAL HISTORY:? As noted in the HPI. SOCIAL HISTORY:? Patient does smoke daily.? Denies alcohol use or illicit drug use. FAMILY HISTORY:? Noncontributory. REVIEW OF SYSTEMS:? Ten system review of systems is negative for recent weight loss or weight gain.? She denies increased fatigue or light-headedness.? Has had no earache or tinnitus.? No sinus congestion.? No sore throat or hoarseness.? No chest pain, palpitations or syncope.? No chronic cough, shortness of breath or hemoptysis.? She has had the abdominal pain, nausea, vomiting, diarrhea which is now resolved with no further episodes of vomiting or diarrhea, only mild pain.? No dysuria, frequency, urgency or hematuria.? No headaches, seizures or tremors.? No easy bruising or bleeding.? No heat or cold intolerance.? No polydipsia, polyphagia or polyuria. PHYSICAL EXAM:? VITAL SIGNS:? Patient?s vital signs are stable.? She is afebrile. GENERAL:? She is a well developed, well nourished female, currently sitting up in bed, in no acute distress.? HEENT:? Normocephalic, atraumatic.? Sclerae anicteric.? Conjunctiva are not injected.? Oral mucosa is moist without lesions.? NECK:? Supple.? There is no adenopathy, thyromegaly or JVD. LUNGS:? Clear bilaterally.? CARDIAC EXAM:? Regular rhythm and rate without appreciable murmurs, rubs or gallops. ABDOMEN:? Soft.? There are normal bowel sounds.? It is non-distended.? There is very mild tenderness in the lower left abdomen with no peritoneal signs, no masses, no hepatosplenomegaly, no hernias noted, no CVA tenderness.? There are well healed laparoscopic incisions. SKIN:? Warm and dry without lesions, rashes or ulcers. NEURO EXAM:? Non-focal.? Non-lateralizing.? Patient is awake, alert, oriented with appropriate affect. MUSCULOSKELETAL EXAM:? Reveals normal muscle strength, mass and tone. ASSESSMENT:? A 53-year-old female with evidence of nausea, vomiting, bloody diarrhea that has now improved, with CT scan showing evidence of colitis. Overall, it is most consistent with infectious gastroenteritis, bacteria versus viral.? Hopefully, we will have an answer from the stool that was sent today.? RECOMMENDATIONS:? I would continue the empiric antibiotics for now.? Certainly, inflammatory bowel disease would be less likely and she is currently improving, so I would not recommend colonoscopy at this time, but certainly once these symptoms resolve or improve, she should have a colonoscopy as an outpatient for further evaluation, particularly if a definitive diagnosis is not made by the stool studies.? I would recommend completing a week course of antibiotics empirically, even if the initial stool studies come back negative, since she does appear to be improving.? She can follow up in the next several weeks in the office to set up an outpatient colonoscopy. CC:? Patient?s family physician [place]
[2023-09-21] MEDS: PIPERACILLIN SODIUM/TAZOBACTAM 3.375 GM in 0.9 % SODIUM CHLORIDE 50 ML IV ×3 (01:31→16:20)
[2023-09-21] MEDS: PANTOPRAZOLE SODIUM 40 MG VIAL IV ×2 (03:33→16:20)
[2023-09-21] MEDS: OXYCODONE HCL/ACETAMINOPHEN 5MG/325MG 1 TAB PO (03:33)
[2023-09-21] MEDS: 0.9 % SODIUM CHLORIDE 1,000 ML 125 ML IV ×3 (04:14→21:04)
[2023-09-21 04:57] LABS: Basophils Absolute Auto 0.1 10^3/uL (0.0-0.1); Basophils Percent Auto 0.5 % (0.2-2.0); Eosinophils Absolute Auto 0.2 10^3/uL (0.0-0.7); Eosinophils Percent Auto 1.7 % (0.9-7.0); Hematocrit 32.9 % (36.0-48.0); Hemoglobin 10.6 g/dL (12.0-16.0); Immature Granulocytes Abs Auto 0.05 10^3/uL (0.00-0.03); Immature Granulocytes Pct Auto 0.4 % (0.0-0.5); Lymphocytes Absolute Auto 1.3 10^3/uL (1.2-3.8); Lymphocytes Percent Auto 9.9 % (20.5-60.0); Mean Corpuscular HGB Conc 32.2 g/dL (29.9-35.2); Mean Corpuscular Volume 96.2 fL (81.0-99.0); Mean Platelet Volume 10.1 fL (9.5-13.5); Monocytes Absolute Auto 0.9 10^3/uL (0.3-0.8); Monocytes Percent Auto 6.5 % (1.7-12.0); Neutrophils Absolute Auto 10.7 10^3/uL (1.4-6.5); Platelet Count 155 10^3/uL (150-450); Red Blood Count 3.42 10^6/uL (4.20-5.40); Red Cell Distribution Width 14.7 % (11.0-15.0); White Blood Count 13.2 10^3/uL (4.0-11.0)
[2023-09-21 05:18] LABS: Alanine Aminotransferase 80 U/L (14-59); Albumin Globulin Ratio 0.9; Albumin Level 2.8 g/dL (3.4-5.0); Alkaline Phosphatase 87 U/L (46-116); Anion Gap 11.5; Aspartate Amino Transferase 99 U/L (15-37); BUN Creatinine Ratio 8.4; Bilirubin Total 0.6 mg/dL (0.2-1.0); Carbon Dioxide 25.3 mmol/L (21.0-32.0); Chloride 105 mmol/L (98-107); Estimated GFR (African America >60 (>=60); Estimated GFR (Non-African Ame >60 (>=60); Glucose 80 mg/dL (74-106); Potassium 3.8 mmol/L (3.5-5.1); Sodium 138 mmol/L (136-145); Total Protein 5.8 g/dL (6.4-8.2)
[2023-09-21] MEDS: SERTRALINE HCL 100 MG TABLET 150 MG PO (08:28)
[2023-09-21] MEDS: ONDANSETRON PF 4 MG/2 ML VIAL IV (08:34)
[2023-09-21] MEDS: OXYCODONE HCL/ACETAMINOPHEN 5MG/325MG 2 TAB PO ×2 (09:25→16:20)
[2023-09-21 09:48] LABS: Lactate/Lactic Acid 0.9 mmol/L (0.4-2.0)
--- NOTE | 2023-09-21 11:33 | P.PN_ITS ---
<Statement entered by Kamila Stevenson, - 09/21/23 14:49> This documentation has been reviewed and approved. I have also seen and evaluated patient and agree with the above assessments and plan of care, and need for surgical consultation, and further imaging to investigate the transaminitis and drop in Hemoglobin. Progress Note: Subjective Subjective Interval history: 09/21/23 0850 The patient is resting in bed, complains of nausea at this time. She reports that her abdominal pain is a little improved and did not worsen with clear or full liquids yesterday. She confirms she has had no further stooling or GI bleeding since admission. A stool sample is still pending collection to check for occult blood and stool culture. We discussed the finding of transaminitis on a.m. labs and the reason for obtaining a right upper quadrant ultrasound. The patient is currently n.p.o. pending that ultrasound. We have consulted Dr. Portillo and appreciate his input on both colitis and transaminitis. The patient continues to have rebound on exam which is concerning for an acute abdomen. Exam Constitutional Vital Signs, click to edit/add: Last Vital Signs Temp 99 F 09/21/23 09:22 Pulse 61 09/21/23 10:00 Resp 16 09/21/23 09:22 BP 117/74 09/21/23 09:22 Pulse Ox 91 L 09/21/23 09:22 O2 Del Method Room Air 09/21/23 09:22 Common normals: no apparent distress, oriented x3 and alert General appearance: cooperative Orientation/consciousness: Yes awake HENOR Common normals: normocephalic, head/scalp atraumatic and hearing grossly normal bilaterally Eye Common normals: PERRL, EOMs intact bilaterally, conjunctivae normal and no scleral icterus General eye: normal appearance of both eyes Chest Common normals: inspection of chest normal Chest: symmetrical chest wall rise Respiratory Common normals: normal respiratory effort, no use of accessory muscles and clear to auscultation bilaterally Effort & inspection: able to speak in complete sentences Cardio Common normals: regular rate, regular rhythm, S1 normal heart sound, S2 normal heart sound, no murmurs and peripheral pulses 2+ throughout GI Common normals: Normal to inspection, nondistended, normoactive bowel sounds present, soft to palpation and no hepatosplenomegaly Palpation: tender (BLQ, greatest on the L), guarding (Mild) and rebound tenderness present (LLQ); not rigid Bladder/kidney exam: bladder normal to palpation Extremity Common normals: normal to inspection and no calf tenderness General: no clubbing, no cyanosis and no edema Neuro Common normals: CN's II-XII intact bilaterally, moves all extremities, no focal motor deficits and no sensory deficits noted Psych Common normals: mental status grossly normal Progress Note: Objective Labs Labs: Short CBC 09/21/23 Range/Units 03:53 WBC 13.2 H (4.0-11.0) 10^3/uL Hgb 10.6 L (12.0-16.0) g/dL Hct 32.9 L (36.0-48.0) % Plt Count 155 (150-450) 10^3/uL BMP 09/21/23 03:53 Sodium 138 Potassium 3.8 Chloride 105 Carbon Dioxide 25.3 BUN 7.0 Creatinine 0.83 Glucose 80 Calcium 8.0 L Liver Function 09/21/23 Range/Units 03:53 Total Bilirubin 0.6 (0.2-1.0) mg/dL AST 99 H (15-37) U/L ALT 80 H (14-59) U/L Alkaline Phosphatase 87 (46-116) U/L Albumin 2.8 L (3.4-5.0) g/dL Progress Note: A&P Assessment and Plan (1) Colitis: Assessment and Plan: Acute * Clinical findings concerning for acute abdomen w/ rebound noted on exam to LLQ * Consult General Surgery - we appreciate Dr Portillo's assistance with this pt's care * Continue to suspect infectious etiology (rather than ulcerative or ischemic) - Positive Leukocytosis/chills; associated hematochezia, but not mucoid stools; normal lactic acid * Leukocytosis improving - 13.2 (down from 18.0 yesterday) * Continue IVPB Zosyn q8h * C-diff and occult blood stool studies still pending collection - no output x 36 hrs * Still at risk for sepsis, but is improving * continue NS IVF at 125/hr for now, reduce rate once pt has adequate fluid intake * Pt tolerated advance to full liquid diet yesterday afternoon * Currently NPO pending RUQ US - see transaminitis * Zofran for nausea * Percocet PO or Morphine IVP for pain - attempt to use PO if possible for improved pain control * CBC, CMP daily (2) Transaminitis: Assessment and Plan: Acute * Unclear etiology - normal liver enzymes on admission * CT abdomen in ED noted biliary distention despite cholecystectomy * Cholecystectomy ~ 2013 * No prior concern for retained stone post op * Add on Acute hepatitis panel to AM labs - send out * Obtain RUQ US * C/S General surgery - we appreciate Dr Portillo's assistance with this pt's care * No EtOH abuse history * CMP daily (3) GIB (gastrointestinal bleeding): Assessment and Plan: Acute * Acute onset burgundy GIB w/ associated abdominal pain - see colitis * Resolved prior to arrival in the ED (09/18) w/ no further episodes of GIB since * See ABLA (4) ABLA (acute blood loss anemia): Assessment and Plan: Acute * Hgb 10.6 today (down from 13.4 in ED) * Suspect 2/2 GIB noted prior to admission and likely hemodilution w/ large volume IVF administration * No further GIB noted * Stool for occult blood is pending collection * Transfuse PRBCs for hgb < 7 or if significantly symptomatic * CBC daily (5) Depression: Assessment and Plan: Chronic * Continue home sertraline, trazodone, and Abilify
--- NOTE | 2023-09-21 11:59 | US_ITS ---
The [address] [address] Patient Name: MARTA MORALEZ MRN: [id number] date: 1970 Sex: F Assigned Patient Location: [place] Current Patient Location: [place] Accession/Order Number: [id number] Exam Date: 09/21/2023 12:00 Report Date: 09/21/2023 13:06 At the request of: RUTHIE CAMACHO Procedure: US right upper quadrant EXAMINATION: US right upper quadrant HISTORY: Transaminitis ; abnormal liver lab values COMPARISON: CT abdomen pelvis 09/19/2023 TECHNIQUE: Transabdominal evaluation of the right upper quadrant. FINDINGS: LIVER: Dilated intrahepatic bile ducts.. Color Doppler demonstrates patent hepatic veins. PORTAL VEIN: Duplex Doppler demonstrates normal hepatopetal flow pattern with flow velocity averaging [24 cm/s. GALLBLADDER: Cholecystectomy. BILIARY: Abnormal dilation of common bile duct, 20 mm. PANCREASE: No visible mass, abnormal atrophy, or duct dilation. KIDNEY: No hydronephrosis. No visible mass or stones. Size: 9.7 x 6.7 x 5.3 cm US/US right upper quadrant IMPRESSION: 1. Markedly dilated common bile duct even allowing for postcholecystectomy state. No appreciable mass or stones. No abnormal dilation of the pancreatic duct. Consider ERCP for further evaluation. Electronically authenticated by: KAIT ELMORE Date: 09/21/2023 13:06
--- NOTE | 2023-09-21 12:07 | CM.NOTE ---
Rounds made with Dr. Stevenson. 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 Continued rebound tenderness, surgery consulted. No discharge today.
[2023-09-21] MEDS: METRONIDAZOLE/SODIUM CHLORIDE 500 MG/100 ML PREMIX 100 MG IV ×2 (13:31→21:04)
[2023-09-21 16:33] LABS: Internal Control Within Normal Limits; Occult Blood Positive
--- NOTE | 2023-09-21 16:35 | PM.GSCN ---
History of Present Illness Consult details Consult date: 09/21/23 Requesting physician: Kamila Stevenson Narrative: patient seen/examined/chart and ct scan images reviewed; consult dictated; likely gastroenteritis,bacterial verses viral; await stools studies sent today; continue empiric antibiotics, would complete 1 week of treatment; can advance to low residue diet as tolerated, clinically improving; likely can be discharge tomorrow;can follow up in the next several weeks to set up outpatient colonoscopy; mild transaminase elevation likely due to infection/medications; no evidence of obstruction of bile duct; normal alkaline phosphatase and bilirubin. [facility] Medical History (Updated 09/21/23 @ 11:37 by Diane King NP) Depression ?F32.A - Depression, unspecified (ICD-10) Menopausal state ?N95.1 - Menopausal and female climacteric states (ICD-10) Pelvic pain ?R10.2 - Pelvic and perineal pain (ICD-10) Menorrhagia ?N92.0 - Excessive and frequent menstruation with regular cycle (ICD-10) Surgical History (Updated 04/29/23 @ 13:14 by Deja Williamson RN) Hx laparoscopic cholecystectomy ?Z90.49 - Acquired absence of other specified parts of digestive tract (ICD-10) H/O tubal ligation ?Z98.51 - Tubal ligation status (ICD-10) H/O cervical biopsy ?Z98.890 - Other specified postprocedural states (ICD-10) History of endometrial ablation ?Z98.890 - Other specified postprocedural states (ICD-10) Family History (Updated 04/29/23 @ 12:55 by Deja Williamson RN) Other Family history of cancer Family history of hypertension Family history of myocardial infarction Social History Within the past year, how often did you have a drink containing alcohol: never Within the past year, how often did you have six or more drinks on one occasion: never Score interpretation: A score less than 3 is consistent with normal alcohol consumption. 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 Known occupational exposures/hazards: No Highest level of school completed/degree received: GED or equivalent Do you think of yourself as: straight/heterosexual Gender Identity: female Meds Home Medications and Allergies Home Medications ?Medication ?Instructions ?Recorded ?Confirmed ?Type sertraline 100 mg tablet 150 mg PO DAILY 04/29/23 09/20/23 History aripiprazole 2 mg tablet 2 mg PO .QHS 09/20/23 09/20/23 History clindamycin phosphate 1 % lotion 1 applic topical DAILY 09/20/23 09/20/23 History tirzepatide (weight loss) 2.5 2.5 mg subcut .WEEKLY 09/20/23 09/20/23 History mg/0.5 mL subcutaneous pen injector (Zepbound) trazodone 150 mg tablet 150 mg PO .QHS PRN sleep 09/20/23 09/20/23 History Allergies Allergy/AdvReac Type Severity Reaction Status Date / Time No Known Drug Allergies Allergy Verified 04/29/23 13:02 Exam Constitutional Vital Signs, click to edit/add: Last Vital Signs Temp 98.4 F 09/21/23 15:52 Pulse 67 09/21/23 16:00 Resp 16 09/21/23 15:52 BP 107/62 09/21/23 15:52 Pulse Ox 91 L 09/21/23 15:52 O2 Del Method Room Air 09/21/23 15:52 Results Labs Labs: Abnormal lab results 09/21/23 09/21/23 Range/Units 03:53 15:00 WBC 13.2 H (4.0-11.0) 10^3/uL RBC 3.42 L (4.20-5.40) 10^6/uL Hgb 10.6 L (12.0-16.0) g/dL Hct 32.9 L (36.0-48.0) % Neut % (Auto) 81.0 H (43.0-75.0) % Lymph % (Auto) 9.9 L (20.5-60.0) % Neut # (Auto) 10.7 H (1.4-6.5) 10^3/uL [place] # (Auto) 0.9 H (0.3-0.8) 10^3/uL Abs Immat Gran (auto) 0.05 H (0.00-0.03) 10^3/uL Calcium 8.0 L (8.5-10.1) mg/dL AST 99 H (15-37) U/L ALT 80 H (14-59) U/L Total Protein 5.8 L (6.4-8.2) g/dL Albumin 2.8 L (3.4-5.0) g/dL Stool Occult Blood Positive A Diabetes panel 09/21/23 Range/Units 03:53 Sodium 138 (136-145) mmol/L Potassium 3.8 (3.5-5.1) mmol/L Chloride 105 (98-107) mmol/L Carbon Dioxide 25.3 (21.0-32.0) mmol/L BUN 7.0 (7.0-18.0) mg/dL Creatinine 0.83 (0.55-1.02) mg/dL Glucose 80 (74-106) mg/dL Calcium 8.0 L (8.5-10.1) mg/dL AST 99 H (15-37) U/L ALT 80 H (14-59) U/L Alkaline Phosphatase 87 (46-116) U/L Total Protein 5.8 L (6.4-8.2) g/dL Albumin 2.8 L (3.4-5.0) g/dL Calcium panel 09/21/23 Range/Units 03:53 Calcium 8.0 L (8.5-10.1) mg/dL Albumin 2.8 L (3.4-5.0) g/dL Pituitary panel 09/21/23 Range/Units 03:53 Sodium 138 (136-145) mmol/L Potassium 3.8 (3.5-5.1) mmol/L Chloride 105 (98-107) mmol/L Carbon Dioxide 25.3 (21.0-32.0) mmol/L BUN 7.0 (7.0-18.0) mg/dL Creatinine 0.83 (0.55-1.02) mg/dL Glucose 80 (74-106) mg/dL Calcium 8.0 L (8.5-10.1) mg/dL Adrenal panel 09/21/23 Range/Units 03:53 Sodium 138 (136-145) mmol/L Potassium 3.8 (3.5-5.1) mmol/L Chloride 105 (98-107) mmol/L Carbon Dioxide 25.3 (21.0-32.0) mmol/L BUN 7.0 (7.0-18.0) mg/dL Creatinine 0.83 (0.55-1.02) mg/dL Glucose 80 (74-106) mg/dL Calcium 8.0 L (8.5-10.1) mg/dL Total Bilirubin 0.6 (0.2-1.0) mg/dL AST 99 H (15-37) U/L ALT 80 H (14-59) U/L Alkaline Phosphatase 87 (46-116) U/L Total Protein 5.8 L (6.4-8.2) g/dL Albumin 2.8 L (3.4-5.0) g/dL All other labs normal. Assessment and Plan Assessment and Plan (1) Colitis: (2) Transaminitis: (3) GIB (gastrointestinal bleeding): (4) ABLA (acute blood loss anemia): (5) Depression:
[2023-09-21] MEDS: CIPROFLOXACIN IN 5 % DEXTROSE 400 MG/200 ML PIGGYBACK 200 MG IV (17:12)
[2023-09-21] MEDS: ARIPIPRAZOLE 2 MG TABLET PO (21:04)
[2023-09-22] VITALS (8 sets, daily range): BP systolic 121; BP diastolic 70; PULSE 52–64; TEMP 37.1; O2SAT 91
[2023-09-22] MEDS: OXYCODONE HCL/ACETAMINOPHEN 5MG/325MG 2 TAB PO ×2 (00:16→06:20)
[2023-09-22] MEDS: CIPROFLOXACIN IN 5 % DEXTROSE 400 MG/200 ML PIGGYBACK 200 MG IV (04:11)
[2023-09-22] MEDS: PANTOPRAZOLE SODIUM 40 MG VIAL IV (04:11)
[2023-09-22 05:22] LABS: Basophils Absolute Auto 0.1 10^3/uL (0.0-0.1); Basophils Percent Auto 0.5 % (0.2-2.0); Eosinophils Absolute Auto 0.2 10^3/uL (0.0-0.7); Eosinophils Percent Auto 1.7 % (0.9-7.0); Hematocrit 34.3 % (36.0-48.0); Hemoglobin 11.2 g/dL (12.0-16.0); Immature Granulocytes Abs Auto 0.03 10^3/uL (0.00-0.03); Immature Granulocytes Pct Auto 0.2 % (0.0-0.5); Lymphocytes Absolute Auto 2.5 10^3/uL (1.2-3.8); Lymphocytes Percent Auto 19.3 % (20.5-60.0); Mean Corpuscular HGB Conc 32.7 g/dL (29.9-35.2); Mean Corpuscular Hemoglobin 31.1 pg (26.7-34.0); Mean Corpuscular Volume 95.3 fL (81.0-99.0); Mean Platelet Volume 10.1 fL (9.5-13.5); Monocytes Absolute Auto 0.7 10^3/uL (0.3-0.8); Monocytes Percent Auto 5.2 % (1.7-12.0); Neutrophils Absolute Auto 9.3 10^3/uL (1.4-6.5); Neutrophils Percent Auto 73.1 % (43.0-75.0); Platelet Count 184 10^3/uL (150-450); Red Cell Distribution Width 14.4 % (11.0-15.0); White Blood Count 12.8 10^3/uL (4.0-11.0)
[2023-09-22 05:41] LABS: Alanine Aminotransferase 52 U/L (14-59); Albumin Globulin Ratio 0.9; Albumin Level 2.9 g/dL (3.4-5.0); Alkaline Phosphatase 89 U/L (46-116); Anion Gap 9.5; Aspartate Amino Transferase 37 U/L (15-37); BUN Creatinine Ratio 6.5; Bilirubin Total 0.5 mg/dL (0.2-1.0); Calcium 8.2 mg/dL (8.5-10.1); Carbon Dioxide 24.9 mmol/L (21.0-32.0); Chloride 108 mmol/L (98-107); Estimated GFR (African America >60 (>=60); Estimated GFR (Non-African Ame >60 (>=60); Globulin 3.1 g/dL; Glucose 102 mg/dL (74-106); Potassium 3.4 mmol/L (3.5-5.1); Sodium 139 mmol/L (136-145)
[2023-09-22] MEDS: 0.9 % SODIUM CHLORIDE 1,000 ML 125 ML IV (06:05)
[2023-09-22] MEDS: METRONIDAZOLE/SODIUM CHLORIDE 500 MG/100 ML PREMIX 100 MG IV (06:05)
[2023-09-22] MEDS: SERTRALINE HCL 100 MG TABLET 150 MG PO (09:13)
[2023-09-22] MEDS: POTASSIUM CHLORIDE 10 MEQ ER TABLET 40 MEQ PO (09:14)
[2023-09-22 10:17] LABS: Adenovirus F 40/41 NOT DETECTED (NOT DETECTE); Astrovirus NOT DETECTED (NOT DETECTE); Campylobacter NOT DETECTED (NOT DETECTE); Cryptosporidium NOT DETECTED (NOT DETECTE); Cyclospora cayetanensis NOT DETECTED (NOT DETECTE); Entamoeba histolytica NOT DETECTED (NOT DETECTE); Enteroaggregative E.coli NOT DETECTED (NOT DETECTE); Enteropathogenic E.coli NOT DETECTED (NOT DETECTE); Enterotoxigenic E. coli NOT DETECTED (NOT DETECTE); Giardia lamblia NOT DETECTED (NOT DETECTE); Norovirus GI/GII NOT DETECTED (NOT DETECTE); Plesiomonas shigelloides NOT DETECTED (NOT DETECTE); Rotavirus A NOT DETECTED (NOT DETECTE); Salmonella NOT DETECTED (NOT DETECTE); Sapovirus NOT DETECTED (NOT DETECTE); Shiga-like toxin-producing E.C NOT DETECTED (NOT DETECTE); Shigella/Enteroinvasive E.coli NOT DETECTED (NOT DETECTE); Vibrio NOT DETECTED (NOT DETECTE); Vibrio cholerae NOT DETECTED (NOT DETECTE); Yersinia enterocolitica NOT DETECTED (NOT DETECTE)
--- NOTE | 2023-09-22 10:54 | P.DS_ITS ---
<Statement entered by Kamila Stevenson DO - 09/22/23 12:25> This documentation has been reviewed and approved. I have also seen and evaluated patient at the time of discharge and agree with the discharge plan, medications and close follow up with Dr. Portillo and PCP. DS: Providers Provider Date of admission: 09/20/23 10:06 Primary care physician: Blake Keller DO Consults: 09/20/23 Consult to Alarm Service Technician Routine Reason for consult:: Advanced Directives 09/21/23 08:33 Consult to General Surgeon Routine Consulting Provider: Samson Portillo Reason for consultation: Colitis/Transaminitis ??Biliary obstruction Has provider been notified: No Discharging clinician: Diane King DS: Diagnosis Discharge Diagnosis (1) Colitis: (2) Transaminitis: (3) GIB (gastrointestinal bleeding): (4) ABLA (acute blood loss anemia): (5) Depression: DS: Summary Hospital Course Hospital Course: The patient was admitted with acute colitis and associated leukocytosis and GI bleeding. She was initially placed on IVPB Cipro and Flagyl for her colitis, but as her leukocytosis worsened and her blood pressures were soft, her antibiotic was changed to Zosyn for broader gram negative coverage and anaerobic pathogens. Her symptoms were slowly improving and GI bleeding did not occur for 48 hours. She developed abrupt elevation in her liver enzymes and she continued to have evidence of an acute abdomen with rebound tenderness. A right upper quadrant ultrasound was obtained and general surgery was consulted and she was seen by Dr. Portillo. Dr. Portillo was not concerned for a retained gallbladder stone after the patient's previous cholecystectomy (approximately 10 years ago). He indicated the patient's transaminitis was likely secondary to medications and thus the patient's Zosyn was discontinued and she was placed back on Cipro and Flagyl. The right upper quadrant ultrasound indicated CBD distention but no evidence of obstruction. Dr. Portillo will follow the patient after discharge and perform a colonoscopy likely within 4 to 6 weeks. The patient experienced 1 further small episode of GI bleeding after 48 hours and experienced some mild acute blood loss anemia that did not require PRBC transfusion. Her hemoglobin was trending up on the day of discharge. Mild hypokalemia was also noted on the day of discharge which was repleted with p.o. KCl. As the patient's pain and diarrhea are improving/resolving, she is being discharged home in stable condition. She is prescribed 5 more days of Cipro and Flagyl to complete a 7- day course. She is also prescribed a short course of PRN Percocet for abdominal pain. She will follow-up with Dr. Portillo within 1 week and with her PCP in 5 to 7 days. We recommend a follow-up CBC and CMP to continue to monitor for anemia, hypokalemia, and transaminitis. Time Spent with Patient Time attestation: Total time spent providing and/or coordinating discharge services: Time spent: greater than 30 minutes Specific discharge activities: Physical exam, discussion of discharge plan, questions answered. Exam Constitutional Vital Signs, click to edit/add: Last Vital Signs Temp 98.8 F 09/22/23 05:56 Pulse 56 L 09/22/23 10:00 Resp 18 09/22/23 05:56 BP 121/70 09/22/23 05:56 Pulse Ox 91 L 09/22/23 05:56 O2 Del Method Room Air 09/22/23 05:56 Common normals: no apparent distress, oriented x3 and alert General appearance: cooperative Orientation/consciousness: Yes awake HENMT Common normals: normocephalic and head/scalp atraumatic Eye Common normals: PERRL, EOMs intact bilaterally, conjunctivae normal and no scleral icterus Neck & C-Spine Common normals: no JVD Respiratory Common normals: normal respiratory effort, no use of accessory muscles and clear to auscultation bilaterally Effort & inspection: able to speak in complete sentences and symmetric chest movement Cardio Common normals: no JVD, regular rate, regular rhythm, S1 normal heart sound, S2 normal heart sound and peripheral pulses 2+ throughout Heart sounds: murmur (HSM 2/6) GI Common normals: Normal to inspection, nondistended, normoactive bowel sounds present and soft to palpation Palpation: tender (LLQ - improved) and rebound tenderness present (LLQ - improved); no guarding and not rigid Bladder/kidney exam: bladder normal to palpation Extremity Common normals: normal to inspection, full ROM, normal capillary refill and no pedal edema General: no clubbing and no cyanosis Neuro Common normals: moves all extremities, no focal motor deficits and no sensory deficits noted Speech: speech normal Psych Common normals: mental status grossly normal and activity/motor behavior normal DS: Data Data Completed and Pending Completed studies during hospitalization: CT Abd/Pelvis, RUQ US. Labs on day of discharge: Labs from last 24 hours 09/22/23 09/21/23 04:37 15:00 WBC 12.8 H RBC 3.60 L Hgb 11.2 L Hct 34.3 L MCV 95.3 MCH 31.1 MCHC 32.7 RDW 14.4 Plt Count 184 MPV 10.1 Neut % (Auto) 73.1 Lymph % (Auto) 19.3 L [place] % (Auto) 5.2 Eos % (Auto) 1.7 Baso % (Auto) 0.5 Neut # (Auto) 9.3 H Lymph # (Auto) 2.5 [place] # (Auto) 0.7 Eos # (Auto) 0.2 Baso # (Auto) 0.1 Abs Immat Gran (auto) 0.03 Imm/Tot Granulo (auto) 0.2 Sodium 139 Potassium 3.4 L Chloride 108 H Carbon Dioxide 24.9 Anion Gap 9.5 BUN 5.0 L Creatinine 0.77 Est GFR ( Amer) >60 Est GFR (Non-Af Amer) >60 BUN/Creatinine Ratio 6.5 Glucose 102 Calcium 8.2 L Total Bilirubin 0.5 AST 37 ALT 52 Alkaline Phosphatase 89 Total Protein 6.0 L Albumin 2.9 L Globulin 3.1 Albumin/Globulin Ratio 0.9 Stool Occult Blood Positive A Stl C. cayetanensis PCR Not detected Stool Rotavirus (PCR) Not detected Stool Adenovirus (PCR) Not detected Stool Astrovirus (PCR) Not detected Stool Campylobacter PCR Not detected Stool Cryptosporidium PCR Not detected St Sh/Enteroin Ecoli PCR Not detected Stl Enterotoxigenic E PCR Not detected Stool EPEC (PCR) Not detected Stl E. histolytica PCR Not detected Stool Giardia Lamblia PCR Not detected Stl P. shigelloides PCR Not detected Stool Salmonella PCR Not detected Stool Sapovirus (PCR) Not detected Stl Shiga-like Tx [address].enterocolitica PCR Not detected Stl Vibrio cholerae PCR Not detected Stl Enteroaggr Ecoli PCR Not detected Stl Norovirus GI/GII PCR Not detected Specimen Source Stool C. difficile Toxin A&B Not detected Vibrio Culture Not detected Discharge Plan Discharge Disposition: Home, Self-Care Condition: Good Discharge Medications: New ciprofloxacin HCl 500 mg tablet 500 mg PO BID 5 Days Qty: 10 0RF metronidazole 500 mg tablet 500 mg PO Q8H 5 Days Qty: 15 0RF oxycodone-acetaminophen [Percocet] 5-325 mg tablet 1 - 2 tab PO Q6H PRN (Reason: pain) Qty: 20 0RF Rx Instructions: Attempt to wean off Percocet to Tylenol. No more than 4000 mg Tylenol per day Continued sertraline 100 mg tablet 150 mg PO DAILY aripiprazole 2 mg tablet 2 mg PO .QHS clindamycin phosphate 1 % lotion 1 applic TOPICAL DAILY Zepbound 2.5 mg/0.5 mL pen injector 2.5 mg SUBCUT .WEEKLY trazodone 150 mg tablet 150 mg PO .QHS PRN (Reason: sleep) Activity: increase activity as tolerated Diet: other Diet Detail: Low residue diet - avoid dairy Print Language: Bengali Activity Restrictions/Additional Instructions: - PCP to consider repeat labs in 1 week - CBC to monitor ABLA, CMP to monitor hypokalemia/transaminitis - Maintain low reside diet until you follow up with Dr Portillo for further recommendations - Follow up colonoscopy in 4-6 weeks - Do not take more than 4000mg of Tylenol (or Tylenol containing meds) in a 24 hr period Forms: Portal Instructions Follow Up Appointments: - FU Dr Portillo in 1 week - FU PCP 5-7 days
--- NOTE | 2023-09-22 10:59 | CM.NOTE ---
Rounds made with Dr. Stevenson. Potential discharge today after additional lab testing returns. Ms. Waters in agreement.
[2023-09-22] MEDS: OXYCODONE HCL/ACETAMINOPHEN 5MG/325MG 1 TAB PO (12:11)
[2023-09-23 05:08] LABS: HBsAg Screen Negative (Negative); HCV Ab Non Reactive (Non Reactive); Hep A Ab, IgM Negative (Negative); Hep B Core Ab, IgM Negative (Negative)
== END 2023-09-22 13:11 | disposition home or self-care (01) | DRG 392 ==
LOC: ER 21:19 → MS 23:58
PROVIDERS: Nurse Practitioner; Nurse Practitioner Acute Care; Physician Assistant; Admitting Provider Family Medicine; Emergency Provider Student in an Organized Health Care Education/Training Program; PCP Obstetrics & Gynecology; Visit Provider Family Medicine
DX: A09 Infectious gastroenteritis and colitis, unspecified (principal); D62 Acute posthemorrhagic anemia; R74.01 Elevation of levels of liver transaminase levels; T36.0X5A Adverse effect of penicillins, initial encounter; Y92.239 Unspecified place in hospital as the place of occurrence of the external cause; F17.200 Nicotine dependence, unspecified, uncomplicated; F32.A Depression, unspecified; Z90.49 Acquired absence of other specified parts of digestive tract; Z79.899 Other long term (current) drug therapy; E87.6 Hypokalemia
CPT/HCPCS: 36415; 74177; 76705; 80053; 80074; 81003; 83605; 85025; 85610; 86850; 86900; 86901; 87045; 87046; 87427; 87493; 87507; 93005; 96361; 96365; 96366; 96367; 96368; 96375; 96376; 99285; G0328; G0378; J0744; J1170; J1836; J2270; J2405; J2543; J3010; Q9967

== ENCOUNTER 2024-03-29 15:16 | Emergency (ER) | payer BC, SELFPAY ==
[2024-03-29] VITALS (7 sets, daily range): BP systolic 117–120; BP diastolic 59–69; PULSE 69–81; TEMP 36.6; O2SAT 98; BMI 19.8
--- OUTSIDE RECORDS SUMMARY | 2024-03-29 15:29 | XMS_ITS | CCD ---
Author Organization [facility] CliniSymn Care Team Providers Care Electrophysiology Technician Name Role Phone SASHA, DR ASH Admitting [...] Attending Unavailable KARASIK, DR ASH Consulting Unavailable Alan BAEZ Primary Care Physician [phone] Manny Keller Attending Provider Unavailable Primary Care Provider UnavailManny Stallworth Attending Unavailable Manny Keller Admitting Unavailable Derek Keller DOy Unavailable Shammo ANESTHESIOLOGIST ASSISTANT [employer], John Primary Care Provider [phone] MANNY KELLER Attending Unavailable VIVIENNE AVALOS Attending Unavailable RAIZA RAMIREZ Attending Unavailable ATIEMO, CHASE NAJERA Referring Unavailabl e SHAMMO, JOHN Primary Care Unavailable ATIEMO, CHASE ODEI Admitting Unavailabl e ATIEMO, CHASE NAJERA Attending Unavailabl e ATIEMO, CHASE ODEI Referring Unavailabl e SHAMMO, JOHN Primary Care Unavailable ATIEMO, CHASE NAJERA Attending Unavailabl e SHAMMO, JHON Referring Unavailable SHAMTN, OJHN Primary Care Unavailable CHARITY ALEXANDER Attending Unavailable [facility] [place] Primary Care Unavailable SHAILESH, Samson Monique Attending Unavailable SHAILESH, Samson Monique Attending Unavailable RICHA LIN Referring Unavailable SHAMMO, JOHN Primary Care Unavailable Medications Current Medications Medication Drug Class(es) Dates Sig (Normalized) Sig (Original) 0.5 ML tirzepatide 5 MG/ML Auto-Injector [Zepbound] (1 source) Start: 09-22-2023 inject 2.5 mg by subcutaneous injection every week Zepbound 2.5 mg/0.5 mL subcutaneous solution 2.5 mg, SubCutaneous, qWeek, Refills(s) 0 Start Date: 09/22/23 Status: Ordered Tylenol PM (1 source) Histamine-1 Receptor Antagonist [...] 05/06/2023 Active ARIPiprazole 2 mg oral tablet (4 sources) Atypical Antipsychotic Start: 09-22-2023 take 2 tablets by mouth at bedtime aripiprazole 2 mg Tab 4 mg = 2 tab(s), Oral, Bedtime, Refills(s) 0 Start Date: 09/22/23 Status: Ordered End: 06-06-2023 take 1 tablet by mouth in the morning ARIPiprazole (ABILIFY) 2 mg tablet Take 1 tablet (2 mg total) by mouth in the morning. 0 06/06/2023 Discontinued hydrOXYzine pamoate 25 mg oral capsule (7 sources) Antihistamine Start: 12-22-2022 hydrOXYzine pa moate (Vistaril) 25 MG capsule every 12 (twelve) hours. 0 12/22/2022 Active take 1 tablet by bradley th three times daily as needed for anxiety hydrOXYzine (ATARAX) 25 mg tablet Take 1 tablet (25 mg total) by mouth 3 (three) times a day as needed for anxiety. Active ibuprofen 800 mg oral tablet (1 source) Nonsteroidal Anti-inflammatory Drug Start: 05-06-2023 take 1 tablet by mouth every eight hours ibuprofen 800 MG tablet Take 800 mg by mouth every 8 (eight) hours 0 05/06/2023 Active sertraline 100 mg oral tablet (6 sources) Serotonin Reuptake Inhibitor Start: 09-22-2023 Zoloft 100 mg Tab 150 mg = 1.5 tab(s), Oral, Daily, Refills(s) 0 Start Date: 09/22/23 Status: Ordered Start: 12-22-2022 take 1 tablet by bradley th once daily in the morning sertraline (Zoloft) 50 MG tablet 1 tablet Orally Once a day in the morning for 30 days 0 12/22/2022 Active End: 06-06-2023 take 1 tablet by mouth in the morning sertraline (ZOLOFT) 100 mg tablet Take 1 tablet (100 mg total) by mouth in the morning. 0 06/06/2023 Discontinued traZODone hydrochloride 150 mg oral tablet (8 sources) Serotonin Reuptake Inhibitor Start: 09-22-2023 take 1 tablet by mouth once daily at bedtime traZODONE 150 mg Tab 150 mg = 1 tab(s), Oral, Once a day (at bedtime), Refills(s) 0 Start Date: 09/22/23 Status: Ordered Start: 12-22-2022 traZODone (Stas yrel) 50 MG tablet take 1 tablet by bradley th once daily traZODone (DESYREL) 100 mg tablet Indications: insomnia associated with depression Take 1 tablet (100 mg total) by mouth nightly Indications: insomnia associated with depression. Active Completed/Discontinued Medications Medication Drug Class(es) Dates Sig (Normalized) Sig (Original) cephalexin 500 mg oral capsule (1 source) Cephalosporin Antibacterial Start: 10-16-2021 take 1 capsule by mouth once daily Keflex 500 mg Cap 500 mg = 1 cap(s), Oral, Daily, Take 1 tab day before procedure and 1 after procedure, # 2 cap(s), Refills(s) 0, Pharmacy: [address], 172, cm, 10/16/21 14:14:00 EDT, Height/Length [...] pelvis] Onset: 09-07-2021 04-11-2023 Episodic Anxiety disorders (3 sources) Needle phobia; Translations: [Other specified phobia] Onset: 06-06-2023 06-06-2023 Chronic Genitourinary symptoms and ill-defined conditions (3 sources) Stress incontinence (female) (male); Translations: [Genuine stress incontinence] Onset: 10-16-2021 Chronic Immunizations and screening for infectious disease (1 source) Encounter for screening for human papillomavirus (HPV); Translations: [ENC SCREENING HUMAN PAPILLOMAVIRUS] Onset: 07-02-2021 Episodic Inflammatory diseases of female pelvic organs (1 source) 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 adhesions (postinfective); Translations: [FE PELV PERITON ADHES POSTINFECTIVE] Onset: 09-07-2021 Episodic Menstrual disorders (5 sources) Menorrhagia; Translations: [Excessive and frequent menstruation with regular cycle] Onset: 04-11-2023 04-11-2023 Chronic Mood disorders (2 sources) Depressive disorder 10-16-2021 Chronic Other aftercare (1 source) Surgical follow-up; Translations: [Encounter for follow-up examination after completed treatment for conditions other than malignant neoplasm] 05-12-2023 Episodic Other diseases of bladder and urethra (5 sources) Mass of urinary bladder; Translations: [Other [...] NEOPLSM OTH GENIT ORGN] Onset: 09-07-2021 Episodic Residual codes; unclassified (1 source) Insomnia 09-22-2023 Episodic Spondylosis; intervertebral disc disorders; other back problems (2 sources) Radiculopathy, cervical region; Translations: [Neck pain] Onset: 03-20-2024 03-29-2024 Episodic Substance-related disorders (1 source) Nicotine dependence, cigarettes, uncomplicated; Translations: [NICOTINE DEPEND CIGARETTES UNCOMP] Onset: 09-07-2021 Chronic Unclassified (2 sources) Finding of sensation of bladder 10-16-2021 Unclassified (1 source) New Patient Onset: 05-20-2023 Past or Other Problems Problem Classification Problem Date Documented Da te Episodic/Chronic Genitourinary symptoms and ill-defined conditions (14 sources) Sensation as if bladder still full; Translations: [Feeling of incomplete bladder emptying] Onset: 10-16-2021 Episodic Other screening for suspected conditions (not mental disorders or infectious disease) (6 sources) Abnormal findings on diagnostic imaging of other specified body structures; Translations: [Endometrium thickened] Onset: 09-07-2021 Resolved: 06-06-2023 04-11-2023 Chronic Results Test Name Value Interpretation Reference Range Facility MR CERVICAL SPINE W WO CONTo n 03-21-2024 MR CERVICAL SPINE W WO CONT MR CERVICAL SPINE W WO CONT EXAM: MR CERVICAL SPINE W WO CONT INDICATION: Cervical radiculopathy COMPARISON: None TECHNIQUE/PROTOCOL: Multiplanar multisequence pre and postcontrast cervical spine protocol MR performed. CONTRAST: 13mL ProHance IV. FINDINGS: Vertebral Bodies: Vertebral body heights and signal properties are normal. Desiccation of the intervertebral discs most pronounced at the C6-C7 level. Alignment: Straightening of normal cervical lordosis Extradural:No abnormal extradural fluid collections or masses. Spinal Cord: Ill-defined T2 hyperintense signal seen throughout the cervical cord from C3 to T1 is favored to be artifactual as a correlate is not identified on axial sequences. Otherwise, Normal in caliber and signal. C2-C3: Minimal disc bulge. No significant spinal canal or neural foraminal stenosis. C3-C4: Minimal disc bulge. No significant spinal canal or neural foraminal stenosis. C4-C5: Minimal disc bulge. Mild left facet arthropathy. No significant spinal canal stenosis. Minimal left neural foraminal stenosis. C5-C6: No significant spinal canal or neural foraminal stenosis. C6-C7: [Subarticular disc protrusion with associated indentation of the ventral thecal sac and abutment of the ventral surface of the spinal cord. Associated flattening of the lateral cord. Effacement of the left lateral recess. Mild to moderate spinal canal stenosis. Moderate left neural foraminal stenosis. C7-T1: No spinal canal or foraminal stenosis. Paraspinal Soft Tissues: Unremarkable. Neck Soft Tissues: Unremarkable. IMPRESSION: Left subarticular disc protrusion with associated effacement of the left lateral recess and flattening of the ventral surface of the spinal cord without definite cord signal abnormality at the C6-C7 level. Moderate left neural foraminal stenosis. Mild degenerative changes at the remaining levels without significant spinal canal stenosis. No more than mild foraminal stenosis at the remaining levels. See above for detailed description of individual levels. Finalized by Samson Huston on 03/21/2024 11:12 AM Normal [facility] RAD - CT Reporton 09-22-2023 RAD - CT Report [id number]. [id number] Normal [facility] BASIC METABOLIC PANLon 06-05 Anion gap [Moles/Vol] 8 mmol/L Normal 5-15 [facility] Comment on above: Performed By: #### B MP #### [facility] ([id number]) [address], [address] [place] [address] Calcium [Mass/Vol] 9.6 mg/dL Normal 8.5-10.5 [facility] Comment on above: Performed By: #### B MP #### [facility] ([id number]) [address], [address] [place] [address] Chloride [Moles/Vol] 108 mmol/L Normal 98-109 [facility] Comment on above: Performed By: #### B MP #### [facility] ([id number]) [address], [address] [place] [address] CO2 [Moles/Vol] 28 mmol/L Normal 22-32 [facility] Comment on above: Performed By: #### B MP #### [facility] ([id number]) [address], [address] [place] [address] Creatinine [Mass/Vol] 0.73 mg/dL Normal 0.40-1.00 [facility] Comment on above: Result Comment: METH OD TRACEABLE TO IDMS STANDARD Performed By: #### B MP #### [facility] ([id number]) [address], [address] [place] [address] eGFR (CKD-EPI) NON-RACE DEPENDENT >90 Normal >59 [facility] Comment on above: Result Comment: Reported eGFR is based on the CKD-EPI 2020 equation that does not use a race coefficient. Performed By: #### B MP #### [facility] ([id number]) [address], [address] [place] [address] Glucose [Mass/Vol] 85 mg/dL Normal 65-99 [facility] Comment on above: Performed By: #### B MP #### [facility] ([id number]) [address], [address] [place] [address] Potassium [Moles/Vol] 3.7 mmol/L Normal 3.5-5.0 [facility] Comment on above: Performed By: #### B MP #### [facility] ([id number]) [address], [address] [place] [address] Sodium [Moles/Vol] 144 mmol/L Normal 134-146 [facility] Comment on above: Performed By: #### B MP #### [facility] ([id number]) [address], [address] [place] [address] Urea nitrogen [Mass/Vol] 20 mg/dL Normal 5-23 [facility] Comment on above: Performed By: #### B #### [facility] ([id number]) [address] [place] [address] Basic Metabolic Panelon 03-0 Anion gap [Moles/Vol] 8 mmol/L 5 - 15 mmol/L [facility] Calcium [Mass/Vol] 9.6 mg/dL 8.5 - 10. 5 mg/dL [facility] Chloride [Moles/Vol] 108 mmol/L 98 - 10 9 mmol/L [facility] CO2 [Moles/Vol] 28 mmol/L 22 - 32 mmol/L [facility] Creatinine [Mass/Vol] 0.73 mg/dL 0.40 - 1.00 mg/dL [facility] Comment on above: METHOD TRACEABLE TO IDPR STANDARD eGFR (CKD-EPI)non-race dependent - PINF [facility] Comment on above: Reported eGFR is based on the CKD-EPI 2020 equation that does not use a race coefficient. Glucose [Mass/Vol] 85 mg/dL 65 - 99 mg/dL [facility] Potassium [Moles/Vol] 3.7 mmol/L 3.5 - 5.0 mmol/L [facility] Sodium [Moles/Vol] 144 mmol/L 134 - 146 mmol/L [facility] Urea nitrogen [Mass/Vol] 20 mg/dL 5 - 23 mg/dL [facility] POCT Urinalysis Auto, W/O Mi croscopyon 05-20-2023 External Poct Urine Blood Trace [facility] External Poct Urine Glucose Negative [facility] External Poct Urine Ketones Trace [facility] External Poct Urine Leukocyte Esterase Trace [facility] External Poct Urine Nitrite Negative [facility] External Poct Urine Ph 6.0 [facility] External Poct Urine Protein Negative [facility] ALL CBC WITH AUTO DIFFon BASOPHILS ABSOLUTE AUTO 0.0 [facility] Basophils/100 WBC (Bld) 0.3 % 0.2 - 2.0 % [facility] Eosinophils/100 WBC (Bld) 0.3 % Low 0.9 - 7.0 % [facility] Erythrocyte distribution width (RBC) [Ratio] 14.4 % 11.0 - 15.0 % [facility] Hematocrit (Bld) [Volume fraction] 35.2 % Low 36.0 - 48.0 % [facility] Hemoglobin (Bld) [Mass/Vol] 11.5 g/dL Low 12.0 - 16.0 g/dL [facility] IMMATURE GRANULOCYTES ABS AUTO 0.04 High [facility] Immature granulocytes/100 WBC (Bld) 0.3 % 0.0 - 0.5 % [facility] Interpretation and review of laboratory results Abnormal [facility] LYMPHOCYTES ABSOLUTE AUTO 2.9 [facility] Lymphocytes/100 WBC (Bld) 23.4 % 20.5 - 60.0 % [facility] MCH (RBC) [Entitic mass] 31.2 pg 26.7 - 34.0 pg [facility] MCHC (RBC) [Mass/Vol] 32.7 g/dL 29.9 - 35.2 g/dL [facility] MCV (RBC) [Entitic vol] 95.4 fL 81.0 - 99.0 fL [facility] MONOCYTES ABSOLUTE AUTO 1.0 High [facility] Monocytes/100 WBC (Bld) 7.7 % 1.7 - 12.0 % [facility] NEUTROPHILS ABSOLUTE AUTO 8.4 High [facility] Neutrophils/100 WBC (Bld) 68.0 % 43.0 - 75.0 % [facility] Platelet mean volume (Bld) [Entitic vol] 9.3 fL Low 9.5 - 13.5 fL [facility] # [facility].0 [facility] PLT 232 [facility] RBC 3.69 Low [facility] WBC 12.4 High [facility] Eriberto 05-05-2023 L Specimen: [id number] Received: 05/06/23 Status: PATRICK Esparza Num: [id number] Spec Type: Surgical Subm Dr: Manny Keller Tissues: A Uterus w/ or w/o tubes ovaries except neoplastic or prolap (UTERU MARY BETH FT) Procedures: HE/12, Gross/Micro L5 Age/ Patient Sex Location Account Attending Physician Priscilla Waters 52/F LABELL [id number] Manny Keller SPEC NUM: [id number] RECD: 05/06/23 STATUS: PATRICK ESPARZA NUM: [id number] NIGEL: 05/05/[address] [facility] [address]: Manny Keller ENTERED: 05/06/[address] [facility] DR: Carolynn,Lab SPEC TYPE: Surgical DEPT: AQUILES PHAM ORDERED: HE/12, Gross/Micro L5 ORDERED: HE, Gross/Micro L5 Pathological Diagnosis Uterus, Cervix and [...] The fimbria are scant but otherwise unremarkable. Line Tester sections are submitted in 6 cassettes as follows: -------- Specimen: [id number] Received: 05/06/23 Status: PATRICK Esparza Num: [id number] Spec Type: Surgical Subm Dr: Manny Keller Tissues: A Uterus w/ or w/o tubes ovaries except neoplastic or prolap (UTERU MARY BETH FT) Procedures: , Gross/Micro L5 -------- Patient: Priscilla Waters [id number] (Continued) -------- Specimen: [id number] Received: 05/06/23 (Continued) Gross Description (Continued) Signed (signature on file) Madelaine Gar MD 05/09/23 2254 -------- Specimen: [id number] Received: 05/06/23 Status: PATRICK Esparza Num: [id number] Spec Type: Surgical Subm Dr: Manny Keller Tissues: A Uterus w/ or w/o tubes ovaries except neoplastic or prolap (UTERU MARY BETH FT) Procedures: , Gross/Micro L5 -------- Patient: Priscilla Waters [id number] (Continued) -------- Specimen: [id number] Received: 05/06/23 (Continued) Gross Description (Continued) A1 - Posterior cul-de-sac serosa A2 - Anterior and posterior cervix A3 - Anterior endomyometrium A4 - Posterior endomyometrium A5 - [place] fallopian tube entirely submitted A6 - Longer fallopian tube with fimbria entirely submitted CPT Codes 72162 -------- -------- Specimen: [id number] Received: 05/06/23 Status: PATRICK Esparza Num: [id number] Spec Type: Surgical Subm Dr: Manny Keller Tissues: A Uterus w/ or w/o tubes ovaries except neoplastic or prolap (UTERU MARY BETH FT) Procedures: , Gross/Micro L5 -------- Patient: Priscilla Waters [id number] (Continued) -------- Signed (signature on file) Madelaine Gar MD 05/09/23 2254 Normal [facility] PREG HCG QUALon 08-14-2021 , QUAL Negative Normal NEGATIVE [facility] Comment on above: Performed By: #### P REG #### [facility] [address] [place] [address] Dr. Thom Gonzalez US PELVIS AND TRANSVAGon [...] by: KAIT ELMORE Date: 2021-07-10 09:07 Normal [facility] PAP ACOG PANEL 2: 30 to 65on 07-06-2021 . . Normal [facility] Comment on above: Result Comment: Perf ormed at: WB Performed By: #### [id number] #### [facility] [address] [address] [address] Thom Gonzalez Age Gdln ACOG Testing 30-65 Normal [facility] Comment on above: Performed By: #### [id number] #### [facility] [address] [address] [address] Thom Gonzalez DIAGNOSIS: Comment Normal [facility] Comment on above: Result Comment: NEGA TIVE FOR INTRAEPITHELIAL LESION OR MALIGNANCY. Performed at: WB Performed By: #### [id number] #### [facility] [address] [address] [address] Thom Gonzalez HPV Aptima Negative Normal Negative [facility] Comment on above: Result Comment: This nucleic acid amplification test detects fourteen high-risk HPV types (16,18,31,33,35,39,45,51,52,56,58,59,66,68) without differentiation. Performed at: =G Performed By: #### [id number] #### [facility] [address] [address] [address] Thom Gonzalez Methodology: Comment Normal [facility] Comment on above: Result Comment: This liquid based ThinPrep(R) pap test was screened with the use of an image guided system. Performed at: WB Performed By: #### [id number] #### [facility] [address] [place] [address] Dr. Thom Gonzalez Note: Comment Normal [facility] Comment on above: Result Comment: The Pap smear is a screening test designed to aid in the detection of premalignant and malignant conditions of the uterine cervix. It is not a diagnostic procedure and should not be used as the sole means of detecting cervical cancer. Both false-positive and false-negative reports do occur. . Performed at: WB Performed By: #### [id number] #### [facility] [address] [place] [address] Dr. Thom Gonzalez Performed by: Comment Normal [facility] Comment on above: Result Comment: Lesvia Irizarry, Injection Molding Supervisor (ASCP) Performed at: WB Performed By: #### [id number] #### [facility] [address] [address] [address] Thom Gonzalez Specimen adequacy: Comment Normal [facility] Comment on above: Result Comment: Sati sfactory for evaluation. Endocervical and/or squamous metaplastic cells (endocervical component) are present. Performed at: WB Performed By: #### [id number] #### [facility] [address] [place] [address] Dr. Thom Gonzalez Vital Signs Date Time Vital Sign Value Performing Clinician Facility 06-06-2023 10:53-0500 Body height 172.[address] 06-06-2023 10:53-0500 Body mass index (BMI) [Ratio] 22.12 kg/m2 [address] 06-06-2023 10:53-0500 Body temperature 96.1 [degF] [address] 06-06-2023 10:53-0500 Body weight 66 kg [address] 06-06-2023 10:53-0500 Diastolic blood pressure 60 mm[Hg] [address] 06-06-2023 10:53-0500 Heart rate 86 /min [address] 06-06-2023 10:53-0500 SaO2% (BldA) [Mass fraction] 95 % [address] 06-06-2023 10:53-0500 Systolic blood pressure 115 mm[Hg] [address] 05-20-2023 16:03-0500 Body height 172.7 cm Chase Roberts MD Work Phone: [facility] 05-20-2023 16:03-0500 Body mass index (BMI) [Ratio] 22.2 kg/m2 Chase Roberts MD Work Phone: [facility] 05-20-2023 16:03-0500 Body weight 66.22 kg Chase Roberts MD Work Phone: [facility] 05-20-2023 16:03-0500 Diastolic blood pressure 66 mm[Hg] Chase Roberts MD Work Phone: [facility] 05-20-2023 16:03-0500 Heart rate 79 /min Chase Roberts MD Work Phone: [facility] 05-20-2023 16:03-0500 Systolic blood pressure 97 mm[Hg] Chase Roberts MD Work Phone: [facility] 05-12-2023 14:08-0500 Body mass index (BMI) [Ratio] 22.62 kg/m2 Vivienne Avalos PA Work Phone: [facility] 05-12-2023 14:08-0500 Body weight 67.5 kg Vivienne Flatwoods PA Work Phone: [facility] 05-12-2023 14:08-0500 Diastolic blood pressure 78 mm[Hg] Vivienne Amanda PA Work Phone: [facility] 05-12-2023 14:08-0500 Systolic blood pressure 120 mm[Hg] Vivienne Flatwoods PA Work Phone: [facility] 10-16-2021 14:01-0400 Blood Pressure Location [facility] 10-16-2021 14:01-0400 Diastolic blood pressure 92 mm[Hg] [facility] 10-16-2021 14:01-0400 Heart rate 87 /min Crystal [facility] 10-16-2021 14:01-0400 Respiratory rate 16 /min Crystal L[facility] 10-16-2021 14:01-0400 Systolic blood pressure 180 mm[Hg] Crystal L[facility] Juan Encounters Encounter Date Encounter Type Care Provider Facility Start: 03-29-2024 End: 03-29-2024 Telephone encounter [facility] Comment on above: Neck pain (Primary D x) Start: 03-20-2024 End: 03-20-2024 ambulatory RICHA LIN [facility] Start: 10-11-2023 ambulatory Samson R NILL Facility : [place] Start: 10-11-2023 End: 10-11-2023 Patient encounter procedure Samson JOINERL [facility] Start: 10-07-2023 ambulatory Samson NILL Facility:[facility] Start: 09-22-2023 ambulatory Samson NILL Facility:[facility] Start: 09-21-2023 End: 09-21-2023 ambulatory Samson R NILL Facility:CD:[id number] Start: 06-14-2023 End: 06-14-2023 Evaluation and management of inpatient CHARITY ALEXANDER [facility] Start: 06-14-2023 End: 06-14-2023 Evaluation and management of inpatient [facility] Start: 06-06-2023 End: 06-06-2023 ambulatory [facility] Start: 06-06-2023 End: 06-06-2023 Patient encounter procedure [facility] Pat Provider 13 [facility] Comment on above: Disorder of urinary system, unspecified; Mass of bladder Start: 06-02-2023 End: 06-02-2023 ambulatory RAIZA RAMIREZ Not Available Start: 05-25-2023 Telephone encounter Chase Mcclellan MD Work Phone: [facility] Start: 05-20-2023 End: 05-20-2023 ambulatory CHASE ROBERTS [facility] Start: 05-20-2023 End: 05-20-2023 Office outpatient new 45 minutes Chase Roberts MD Work Phone: [facility] Comment on above: Disorder [...] Start: 05-05-2023 End: 05-05-2023 ambulatory Manny Krishna Facility:[facility] Start: 05-05-2023 End: 05-05-2023 ambulatory Manny Krishna Work Phone: [facility] Work Phone: Start: 05-05-2023 End: 05-05-2023 Departed Referred Manny Krishna Work Phone: [facility] Start: 04-11-2023 End: 04-11-2023 ambulatory MANNY KRISHNA Not Available Start: 10-16-2021 End: 10-16-2021 Patient encounter procedure Crystal Del RosarioJulio Parrishwilliam [facility] Juan Start: 08-14-2021 End: 08-14-[address] ALAN BAEZ Facility:[facility]1 Start: 08-11-[address] ALAN BAEZ Faci lity:H1 Start: 08-05-2021 Encounter for other preprocedural examination DR ALAN BAEZ [facility] Start: 08-03-2021 End: 08-04-[address] ALAN BAEZ Facility:[facility]1 Start: 08-03-2021 End: 08-04-2021 Encounter for other preprocedural examination DR ALAN BAEZ Facility:[facility]1 Start: 07-10-2021 End: 07-11-[address] ALAN BAEZ Facility:[facility] Start: 06-30-2021 End: 06-30-[address] ALAN BAEZ Facility:[facility]1 Procedures Date Procedure Procedure Detail Performing Clinician Start: 06-06-2023 Basic metabolic pane l calcium total Chase Roberts MD Work Phone: Start: 05-20-2023 Urnls [...] KELLEY Work Phone: Start: 04-04-2014 Cholecystectomy Crystal Hastings ue Start: 04-04-2004 Ligation of fallopian tube Crystal Richter Cervical biopsy Samson CASH Endometrial ablation Samsno CASH Plan of Treatment Date Care Activity Detail Author Start: 06-30-2026 Screening for malign ant neoplasm of cervix [facility] Start: 03-20-2025 Adult BMI Screening Adult BMI Screen ing [facility] Start: 03-20-2025 Tobacco Screening Tobacco Screening [facility] Start: 06-05-2024 Adult BMI Screening Adult BMI Screen ing [facility] Start: 05-20-2024 Adult BMI Screening Adult BMI Screen ing [facility] Start: 05-20-2024 Tobacco Screening Tobacco Screening [facility] Start: 04-05-2024 End: 04-05-2024 Patient encounter procedure 04/05/2024 12:45 PM EST Office Visit [facility] [address] [place] [phone] Redd Galicia MD [address] [place] [phone] [facility] Start: 03-29-2024 End: 03-29-2025 XR Cervical spine 2 or 3 views and (Views W flexion and W extension) X-ray spine cervical AP, lateral, flexion & extension views Imaging Routine Neck pain Expected: 03/29/2024, Expires: 03/29/2025 [facility] Work Phone: Comment on above: Expected: 03/29/2024 , Expires: 03/29/2025 Start: 12-04-2023 COVID-19 Vaccine ( season) COVID-19 Vaccine ( season) [facility] Start: 12-04-2023 Influenza vaccination Influenza Vacc ine [facility] Start: 07-15-2023 End: 07-15-2023 Patient encounter procedure 07/15/2023 2:00 PM EDT Office Visit [facility] [address] [place] [phone] Chase Roberts MD [address] [facility] [phone] [facility] Start: 06-14-2023 End: 06-14-2023 Admission to same day surgery center 06/14/2023 9:45 AM EDT - 06/14/2023 10:30 AM EDT [facility] [address] [place] [address] [address] [place] [address] Chase Roberts MD [address] [email or web address] [address] CYSTOSCOPY BIOPSY BLADDER [27531 (CPT )] [facility] Ambulatory Surgery A [facility] Comment on above: CYSTOSCOPY BIOPSY BL ADDER [90953 (CPT )] Start: 06-14-2023 End: 06-14-2023 Cystourethroscopy with biopsy CYSTOSCOPY BIOPSY BLADDER Disorder of urinary system, unspecified Mass of bladder 06/14/2023 9:45 AM EDT [facility] Start: 06-14-2023 Subsequent hospital visit by physician 06/14/2023 9:45 AM EDT Hospital Encounter [facility] Amb[facility] Surgery [facility] [address] [place] [address] [address] [place] [phone] Chase Roberts MD [address] [email or web address] [address] [facility] Ambulatory Surgery [facility] Start: 06-06-2023 End: 06-06-2023 Patient encounter procedure 06/06/2023 10:45 AM EST Procedure visit [facility] [address] [phone] [facility] Start: 06-02-2023 End: 06-02-2023 Patient encounter procedure 06/02/2023 1:50 PM EST Office Visit [facility] [address] [place] [address] Raiza Ramirez MD [address] [place] [address] [facility] Start: 12-03-2022 COVID-19 Vaccine ( season) COVID-19 Vaccine ( season) [facility] Start: 12-03-2022 Influenza vaccination N [facility] Start: 06-29-2019 Administration of varicella zoster vaccine Zoster (Shingles) Vaccine (1 of 2) [facility] Start: 2009 Screening for malign ant neoplasm of breast Mammogram [facility] Start: 1990 Screening for malign ant neoplasm of cervix Pap Smear [facility] Start: 1988 DTaP,Tdap and Td Vac cines (1 - Tdap) DTaP,Tdap and Td Vaccines (1 - Tdap) [facility] Start: 1981 Depression Screening Depression Scre ening [facility] Start: 1969 Screening for malign ant neoplasm of colon [facility] Start: 1969 Tobacco Counseling Tobacco Counselin g [facility] Cystourethroscopy ms th biopsy CYSTOSCOPY BIOPSY BLADDER Disorder of urinary system, unspecified Mass of bladder [facility] Immunizations Immunization Date Immunization Notes Care Provider Brandon andrade 01-21-2021 SARS-CoV-2 (COVID-19 ) mRNA-1273 vaccine Samson CASH [facility] [place] 12-24-2020 SARS-CoV-2 (COVID-19 ) mRNA-1273 vaccine Samson CASH [facility] [place] Payers Date Payer Category Payer Self-pay 2021 [employer] - O ANTHEM [id number] 2021 Unknown [id number] 1970 Unknown [id number] 2.16.840.1.624026.3.579. 2.593 1969 Unknown [id number] 2.16.840.1.212155.3.579. 2.593 1969 Unknown [id number] 2.16.840.1.096545.3.579. 2.593 1969 Unknown [id number] 2.16.840.1.553908.3.579. 2.593 1969 Unknown [id number] 2.16.840.1.771613.3.579. 2.593 1969 Unknown [id number] 2.16.840.1.274345.3.579. 2.1259 1969 Unknown [id number] 2.16.840.1.696793.3.579. 2.1259 1969 Unknown [id number] 2.16.840.1.965957.3.579. 2.1259 1969 Unknown [id number] 2.16.840.1.752741.3.579. 2.1286 1969 Unknown [id number] 2.16.840.1.707209.3.579. 2.1286 1969 Unknown [id number] 2.16.840.1.730569.3.579. 2.1286 1969 Unknown [id number] 2.16.840.1.376465.3.579. 2.1286 1969 Unknown [id number] 2.16.840.1.238404.3.579. 2.1286 1969 Unknown [id number] 2.16.840.1.435328.3.579. 2.727 1969 Unknown [id number] 2.16.840.1.414142.3.579. 2.727 1969 Unknown [id number] 2.16.840.1.495828.3.579. 2.1286 1959 Unknown [id number] Social History Date Type Detail Facility Start: 10-16-2021 Tobacco smoking status Light tobacco smoker (finding) [facility] Start: 05-20-2023 End: 06-06-2023 Sex Assigned At Female [facility] Start: 1970 Sex Assigned At Female [facility] Tobacco smoking status IAIS Tobacco smoking consumption unknown [facility] Start: 1970 Sex Assigned At Not on file N [facility] Start: 12-27-2022 Gender identity Identifies as female gender (finding) [facility] Start: 12-27-2022 Sexual orientation Heterosexual (fin ding) [facility] Start: 04-04-1999 End: 06-06-2023 Tobacco smoking status IAIS Smokes tobacco daily [facility] Start: 04-04-1999 History of tobacco use Cigarette Smoker [facility] History of tobacco use Passive smoker [facility] Start: 05-19-2023 End: 06-06-2023 Tobacco use and exposure Smokeless tobacco non-user [facility] Start: 05-20-2023 End: 03-20-2024 Alcohol intake Lifetime non-drinker (finding) [facility] Start: 05-20-2023 End: 06-06-2023 History of Social function [facility] Childcare Unknown [facility] Start: 06-06-2023 Tobacco Comment 2023: eight/day [facility] Start: 11-07-2014 Sex Female (finding) [facility] NEGATED: Highlighted rowStart: NINF History of tobacco use Passive smoker [facility] Functional Status Date Assessment Result Facility 10-16-2021 Functional Status N/A [facility] Clinical Notes 10-16-2021 to 03-29-2024 Telephone Encounter - Belinda Ray - 03/29/2024 10:24 AM ESTTelephone Encounter - Belinda Ray - 03/29/2024 10:24 AM SHAWNA Rangel - 06/06/2023 10:45 AM ESTPatient Instructions Note Date & Type Note Facility 03-29-2024 Miscellaneous Notes Returned patient's call. No answer, left message on machine to call back. To schedule a new patient appointment for cervical documented in this encounter [facility] 03-29-2024 Telephone encounter Note Returned patient's call. No answer, left message on machine to call back. 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 Social Determinants of Health [...] cystoscopy, bladder biopsy. 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 Social Determinants of Health [...] Cason 06/06/23 1559 documented in this encounter [facility] 03-04-2024 Instructions Radha Nixon RN - 06/06/2023 10:45 AM EST Your Procedure/Surgery is scheduled at [facility] on 06/14/23 [facility], [address] [place] [address] You will receive a phone call from [facility] the day before your surgery to verify your arrival time. If you have any questions prior to your surgery, please call Pre-Admission Clinic at [phone] between 7:30 am and 4:30 pm Tuesday through Tuesday. For questions the day of surgery, please call the Pre-op Department at [phone]. Notify your SURGEON if you develop any [...] be aware - it may not be ruzi to cough following some types of surgeries [...] RIGHTS AND RESPONSIBILITIES As a patient at [facility], you have the right to: Receive medical care and be informed of who is taking care of you Be treated with dignity and respect Have a family member/customer service representative teacher of choice and your physician notified of your admission Receive information and actively participate in decisions about your care and treatment Refuse care, treatment and services Decide who may provide your support and speak for you Access evangelical and spiritual services Participate in ethical issues [...] of hospital charges and payment methods Patient/patient customer service representative teacher responsibilities are to: Provide information about health status to facilitate care, treatment and services Follow the treatment, plan, keep appointments and speak up when you do not understand the plan Respect the rights of other patients and healthcare personnel Follow organizational rules and regulations that support quality care and a safe environment Fulfill financial obligations as promptly as possible documented in this encounter [facility] 05-25-2023 Miscellaneous Notes ----- Message from Chase Roberts MD sent at 05/20/2023 5:06 PM EST ----- Please schedule this patient for Cysto and bladder Biopsy under MAC at [place] CALLED PATIENT FOR SCHEDULING. HAD TO LEAVE A VM. RETURNED PATIENTS CALL HAD TO LEAVE A VM SPOKE WITH PATIENT SCHEDULED FOLLOWS: PAT - AT 1045AM SURG - 06/14/2023 PATIENT TO ARRIVE AT 815AM F/U- 07/15/2023 AT 2PM LETTER TO PATIENT INTO MY CHART. DR ROBERTS: ARIAS documented in this encounter [facility] 05-25-2023 Telephone encounter Note ----- Message from Chase Roberts MD sent at 05/20/2023 5:06 PM EST ----- Please schedule this patient for Cysto and bladder Biopsy under MAC at [facility] 05-25-2023 Telephone encounter Note CALLED PATIENT FOR SCHEDULING. HAD TO LEAVE A VM. [facility] 05-25-2023 Telephone encounter Note RETURNED PATIENTS CALL HAD TO LEAVE A VM [facility] 05-25-2023 Telephone encounter Note SPOKE WITH PATIENT SCHEDULED FOLLOWS: PAT - AT 1045AM SURG - 06/14/2023 PATIENT TO ARRIVE AT 815AM F/U- 07/15/2023 AT 2PM LETTER TO PATIENT INTO MY CHART. DR ROBERTS: ARIAS [facility] 05-20-2023 History of Presen t illness [...] voiding dysfunction and incomplete bladder emptying AUASS QOL 07/08 ROSIE Bother 08 PFDI 20 POPDI-6 08/25 CRAD-8 SUZIE-6 02/25 [...] bottles of water a OCCUPATION: Works for [employer] MEDICATIONS: Current Outpatient Medications: hydrOXYzine (ATARAX) 25 [...] procedures Referring and communicating with other health health and social care teacher (not separately reported) Documenting clinical information in the electronic or other health record . documented in this encounter [facility] 05-20-2023 Instructions Chase Roberts MD - 05/20/2023 4:00 PM EST Please follow-up for cystoscopy documented in this encounter [facility] 05-12-2023 History of Presen t illness [...] calculated from the following: Height as of 01/31/23: 5' 8 . Weight as of this [...] of infection. Pt referred to urology in [place] due to possible bladder tumor found during cystoscopy. Pt will follow up in 4 weeks for 6 week post op appt and vaginal cuff exam Follow Up: Patient is to return in 5 weeks for 6 week evaluation. Documented by ALLIE Roque on behalf of: ALLIE Roque documented in this encounter [facility] 10-16-2021 Hospital Discharg e instructions Patient Education [...] including vitamins, herbs, eye drops, creams, and eyrz-ayn-rjjwlyd medicines. ?Whether you are or may be [...] 01/16/2008 Document Revised: 07/10/2019 Document Reviewed: 01/23/2018 [email or web address] Patient Education 2020 [facility]. Follow Up Care 10/08/2021 10:43:51 With:Rober SANDHU, VIRGIL Quinones, URO Address: [address] [place] [phone] When: Unknown [facility] Evaluation + Plan note No data available for this section [facility] Evaluation note No assessment inform ation available [facility] Work Phone: Evaluation note Diagnosis Postoperative examination Follow-up examination, following unspecified surgery [facility] Diagnosis Disorder of urinary system, unspecified [facility] Diagnosis Disorder of urinary system, unspecified Mass of bladder Disorder of urinary system, unspecified Mass of bladder Disorder of urinary system, unspecified Mass of bladder [facility] Diagnosis Neck pain- Primary Cervicalgia [facility] instructions No data available for this section [facility] [place] InstructionsNot on filedocumented in this encounter [facility] on filedocumented in this encounter [facility] No data available for this section [facility] Juan Summary Purpose Family History No Family History Records FoundNo Family History Records FoundNo Family History Records FoundNo Family History Records FoundNo Family History Records Found No data available for this section No Family History Records Found Advance Directives No Advanced Directives Records FoundNo Advanced Directives Records FoundNo Advanced Directives Records FoundNo Advanced Directives Records FoundNo Advanced Directives Records FoundNo Advanced Directives Records Found Additional Source Comments INFORMATION SOURCE (unrecogn ized section and content) DATE CREATED AUTHOR 09/08/2021 [facility] DATE CREATED AUTHOR AUTHOR'S ORGANIZ ATION 05/10/2023 [facility] DATE CREATED AUTHOR AUTHOR'S ORGANIZ ATION 06/05/2023 [facility] DATE CREATED AUTHOR AUTHOR'S ORGANIZ ATION 06/15/2023 [facility] DATE CREATED AUTHOR AUTHOR'S ORGANIZ ATION 10/08/2023 [facility] DATE CREATED AUTHOR AUTHOR'S ORGANIZ ATION 03/22/2024 [facility] Care Team (unrecognized sect ion and content) Team Status: Inactive Member Role Status Dates Manny Keller Attending Provider Active Start: [facility]ies 2023 End: May 05, 2023 Electrophysiology Technician Relationship Specialty Start Date End Date Manny Keller DO [address] [place] [address] [place] [address] PCP - [place] [employer] 04/04/23 Electrophysiology Technician Relationship Specialty Start Date End Date [facility]han [employer] [employer] [address] [place] [address] PCP - General Primary Care 05/20/23 Electrophysiology Technician Relationship Specialty Start Date End Date John Chauhan [facility] [address] [place] [address] PCP - General Primary Care 05/20/23 Electrophysiology Technician Relationship Specialty Start Date End Date John Chauhan APRN[employer] [address] [place] [address] PCP - General Primary Care 05/20/23 Electrophysiology Technician Relationship Specialty Start Date End Date John Chauhan [facility] [employer] [employer] [address] [place] [address] PCP - General Primary Care 05/20/23 Goals (unrecognized section and content) Goals may be documented in a n alternate section Reason for Visit (unrecogniz ed section and content) Reason Comments Post-op Visit Robotic assisted hys t 05/05/2023 Reason Comments New Patient Specialty Diagnoses / Procedures Referred By Contac t Referred To Contact Urology Diagnoses Disorder of urinary system, unspecified John Chauhan APRN-[employer] [address] [place] [address] [facility] [address] [place] [address] [place] [address] [place] [address] Referral ID Status Reason Start Date Expiration Date Visits Requested Visits Authorized [id number] Pending Review Specialty Services Required 3 03/14/2024 [...] BE BASED ON THE PRIMARY CLINICAL RECORDS. [facility]. provides no warranty or guarantee of the accuracy or completeness of information in this document.
--- NOTE | 2024-03-29 15:32 | XR_ITS ---
The [address] [address] Patient Name: MARTA MORALEZ MRN: [id number] date: 1970 Sex: F Assigned Patient Location: ER Current Patient Location: ER Accession/Order Number: [id number] Exam Date: 03/29/2024 15:45 Report Date: 03/29/2024 16:09 At the request of: GRACY IRENE Procedure: XR chest 2V EXAM: XR chest 2V HISTORY: pain COMPARISON: None. TECHNIQUE: Upright PA and lateral chest x-ray FINDINGS: The heart is not enlarged and the vasculature is not distended. No acute infiltrate, effusion or pneumothorax is identified. The osseous structures are grossly intact. XR/XR chest 2V IMPRESSION: No acute infiltrate or evidence of cardiac decompensation. Electronically authenticated by: HILARIO CHIN Date: 03/29/2024 16:09
--- NOTE | 2024-03-29 15:33 | ECG_ITS ---
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
[2024-03-29] MEDS: KETOROLAC TROMETHAMINE 30 MG/ML VIAL IM (15:41)
[2024-03-29 15:47] LABS: Basophils Percent Auto 0.7 % (0.2-2.0); Eosinophils Absolute Auto 0.1 10^3/uL (0.0-0.7); Eosinophils Percent Auto 2.2 % (0.9-7.0); Hematocrit 41.4 % (36.0-48.0); Hemoglobin 14.2 g/dL (12.0-16.0); Immature Granulocytes Abs Auto 0.01 10^3/uL (0.00-0.03); Immature Granulocytes Pct Auto 0.2 % (0.0-0.5); Lymphocytes Absolute Auto 2.1 10^3/uL (1.2-3.8); Mean Corpuscular HGB Conc 34.3 g/dL (29.9-35.2); Mean Corpuscular Hemoglobin 32.1 pg (26.7-34.0); Mean Corpuscular Volume 93.7 fL (81.0-99.0); Mean Platelet Volume 9.2 fL (9.5-13.5); Monocytes Absolute Auto 0.4 10^3/uL (0.3-0.8); Monocytes Percent Auto 7.2 % (1.7-12.0); Neutrophils Absolute Auto 3.2 10^3/uL (1.4-6.5); Neutrophils Percent Auto 54.7 % (43.0-75.0); Platelet Count 199 10^3/uL (150-450); Red Blood Count 4.42 10^6/uL (4.20-5.40); Red Cell Distribution Width 13.2 % (11.0-15.0); White Blood Count 5.9 10^3/uL (4.0-11.0)
[2024-03-29 16:06] LABS: Alanine Aminotransferase 17 U/L (14-59); Albumin Globulin Ratio 1.2; Albumin Level 3.9 g/dL (3.4-5.0); Alkaline Phosphatase 54 U/L (46-116); Anion Gap 12.9; Aspartate Amino Transferase 24 U/L (15-37); BUN Creatinine Ratio 13.8; Bilirubin Total 0.4 mg/dL (0.2-1.0); Calcium 9.1 mg/dL (8.5-10.1); Carbon Dioxide 26.1 mmol/L (21.0-32.0); Chloride 106 mmol/L (98-107); Estimated GFR (African America >60 (>=60 mL/min/1.73m^2); Estimated GFR (Non-African Ame >60 (>=60 mL/min/1.73m^2); Globulin 3.3 g/dL; Glucose 85 mg/dL (74-106); Sodium 141 mmol/L (136-145); Total Protein 7.2 g/dL (6.4-8.2); Troponin I High Sensitivity <4.0 pg/mL (4.0-51.3)
--- NOTE | 2024-03-29 16:15 | ED.CHESTPAI1 ---
HPI - Chest Pain General Chief Complaint: Chest Pain Stated Complaint: diff breathing, chest discomfort Time Seen by Provider: 03/29/24 15:17 Source: patient Mode of arrival: walk-in Limitations: no limitations History of Present Illness HPI narrative: The patient is coming today after she noticed some bulge in her left chest wall, she mentioned that this happened a week ago when she started having pain there the pain is related sometimes to movement to the upper extremities mostly the left 1. Patient denies any nausea vomiting or any difficulty breathing she also denies any relation of the pain to exertion Related Data Home Medications ?Medication ?Instructions ?Recorded ?Confirmed sertraline 100 mg tablet 150 mg PO DAILY 04/29/23 09/20/23 aripiprazole 2 mg tablet 2 mg PO .QHS 09/20/23 09/20/23 clindamycin phosphate 1 % lotion 1 applic topical DAILY 09/20/23 09/20/23 tirzepatide (weight loss) 2.5 2.5 mg subcut .WEEKLY 09/20/23 09/20/23 mg/0.5 mL subcutaneous pen injector (Zepbound) trazodone 150 mg tablet 150 mg PO .QHS PRN sleep 09/20/23 09/20/23 Previous Rx's ?Medication ?Instructions ?Recorded ciprofloxacin HCl 500 mg tablet 500 mg PO BID 5 days #10 tabs 09/22/23 metronidazole 500 mg tablet 500 mg PO Q8H 5 days #15 tabs 09/22/23 oxycodone-acetaminophen 5 mg-325 1 - 2 tab PO Q6H PRN pain #20 tabs 09/22/23 mg tablet (Percocet) ibuprofen 600 mg tablet 600 mg PO Q8H #9 tabs 03/29/24 Allergies Allergy/AdvReac Type Severity Reaction Status Date / Time No Known Drug Allergies Allergy Verified 04/29/23 13:02 Review of Systems ROS Status of ROS 10 or more systems reviewed and unremarkable except as noted in history and below [facility] Medical History (Updated 03/29/24 @ 15:34 by Shaista Rios MD) Depression ?F32.A - Depression, unspecified (ICD-10) Menopausal state ?N95.1 - Menopausal and female climacteric states (ICD-10) Pelvic pain ?R10.2 - Pelvic and perineal pain (ICD-10) Menorrhagia ?N92.0 - Excessive and frequent menstruation with regular cycle (ICD-10) Surgical History (Updated 04/29/23 @ 13:14 by Deja Williamson RN) Hx laparoscopic cholecystectomy ?Z90.49 - Acquired absence of other specified parts of digestive tract (ICD-10) H/O tubal ligation ?Z98.51 - Tubal ligation status (ICD-10) H/O cervical biopsy ?Z98.890 - Other specified postprocedural states (ICD-10) History of endometrial ablation ?Z98.890 - Other specified postprocedural states (ICD-10) Family History (Updated 04/29/23 @ 12:55 by Deja Williamson RN) Other Family history of cancer Family history of hypertension Family history of myocardial infarction Social History Within the past year, how often did you have a drink containing alcohol: never Within the past year, how often did you have six or more drinks on one occasion: never Score interpretation: A score less than 3 is consistent with normal alcohol consumption. Smoking status: Current every day smoker Second hand tobacco smoke exposure: No Non-prescribed substance use: denies use Previous occupational history: [employer] Known occupational exposures/hazards: No Highest level of school completed/degree received: GED or equivalent Little interest or pleasure in doing things: not at all Feeling down, depressed, or hopeless: not at all Do you think of yourself as: straight/heterosexual Gender Identity: female Exam Narrative Exam Narrative: Nurses notes and vital signs reviewed and patient is not hypoxic. General: Well-appearing and in no apparent distress. Skin: Warm, dry, no pallor noted. No rash. Head: Normocephalic, atraumatic. Neck: Supple, non-tender. Cardiovascular: Regular Rate and Rhythm without murmur, gallop or rub. Respiratory: No accessory muscle use or respiratory distress. Lungs are clear to auscultation, no wheezing, rales or rhonchi Chest Wall: Tenderness upon palpation of the left upper chest wall there is area of a small nodule like, mostly muscular and soft and not fluctuant but it is tender, no signs of infection Back: No midline thoracic or lumbar vertebral tenderness. No CVA tenderness Musculoskeletal: normal ROM, no calf or popliteal tenderness, no lower extremity edema/swelling GI: Abdomen is soft, non-distended. Normal bowel sounds. No masses appreciated. No tenderness to palpation. No rebound, guarding, or rigidity noted. Neurological: A&O x4. No cranial nerve dysfunction observed. No truncal ataxia. Moves all extremities. Sensation intact. Psychiatric: Cooperative and interactive. Normal mood and affect. Constitutional Vital Signs, click to edit/add: Last Vital Signs Temp 97.9 F 03/29/24 15:19 Pulse 69 03/29/24 16:00 Resp 13 03/29/24 16:00 BP 117/68 03/29/24 15:33 Pulse Ox 98 03/29/24 16:00 O2 Del Method Room Air 03/29/24 15:19 Course Vital Signs Vital signs: Vital Signs Temperature 97.9 F 03/29/24 15:19 Pulse Rate 71 03/29/24 15:19 Respiratory Rate 18 03/29/24 15:19 Blood Pressure 120/69 03/29/24 15:19 Pulse Oximetry 98 03/29/24 15:19 Oxygen Delivery Method Room Air 03/29/24 15:19 Temperature 97.9 F 03/29/24 15:19 Pulse Rate 69 03/29/24 16:00 Respiratory Rate 13 03/29/24 16:00 Blood Pressure 117/68 03/29/24 15:33 Pulse Oximetry 98 03/29/24 16:00 Oxygen Delivery Method Room Air 03/29/24 15:19 MDM - Chest Pain MDM Narrative Medical decision making narrative: The patient EKG in the ER showing sinus rhythm with a heart rate of [address] elevation or depression Chest x-ray showed no acute pathology CBC and chemistry were within normal and the patient was started on Toradol she was discharged home with ibuprofen at the supportive care for possible inflammation The patient to hydrate well and follow-up with her primary care doctor for further evaluation and possible more workup in case needed The patient is to follow up with primary care physician in next 2-3 days or to return to the emergency department should any of the signs or symptoms worsen or new symptoms develop. The patient agrees with the following Diagnosis and Treatment plan and the patient will be discharged home. Lab Data Labs: Lab Results 03/29/24 Range/Units 15:33 WBC 5.9 (4.0-11.0) 10^3/uL RBC 4.42 (4.20-5.40) 10^6/uL Hgb 14.2 (12.0-16.0) g/dL Hct 41.4 (36.0-48.0) % MCV 93.7 (81.0-99.0) fL MCH 32.1 (26.7-34.0) pg MCHC 34.3 (29.9-35.2) g/dL RDW 13.2 (11.0-15.0) % Plt Count 199 (150-450) 10^3/uL MPV 9.2 L (9.5-13.5) fL Neut % (Auto) 54.7 (43.0-75.0) % Lymph % (Auto) 35.0 (20.5-60.0) % [place] % (Auto) 7.2 (1.7-12.0) % Eos % (Auto) 2.2 (0.9-7.0) % Baso % (Auto) 0.7 (0.2-2.0) % Neut # (Auto) 3.2 (1.4-6.5) 10^3/uL Lymph # (Auto) 2.1 (1.2-3.8) 10^3/uL [place] # (Auto) 0.4 (0.3-0.8) 10^3/uL Eos # (Auto) 0.1 (0.0-0.7) 10^3/uL Baso # (Auto) 0.0 (0.0-0.1) 10^3/uL Abs Immat Gran (auto) 0.01 (0.00-0.03) 10^3/uL Imm/Tot Granulo (auto) 0.2 (0.0-0.5) % Sodium 141 (136-145) mmol/L Potassium 4.0 (3.5-5.1) mmol/L Chloride 106 (98-107) mmol/L Carbon Dioxide 26.1 (21.0-32.0) mmol/L Anion Gap 12.9 BUN 13.0 (7.0-18.0) mg/dL Creatinine 0.94 (0.55-1.02) mg/dL Est GFR ( Amer) >60 (>=60 mL/min/1.73m^2) Est GFR (Non-Af Amer) >60 (>=60 mL/min/1.73m^2) BUN/Creatinine Ratio 13.8 Glucose 85 (74-106) mg/dL Calcium 9.1 (8.5-10.1) mg/dL Total Bilirubin 0.4 (0.2-1.0) mg/dL AST 24 (15-37) U/L ALT 17 (14-59) U/L Alkaline Phosphatase 54 (46-116) U/L Troponin I High Sens <4.0 L (4.0-51.3) pg/mL Total Protein 7.2 (6.4-8.2) g/dL Albumin 3.9 (3.4-5.0) g/dL Globulin 3.3 g/dL Albumin/Globulin Ratio 1.2 Discharge Plan Discharge Chief Complaint: Chest Pain Clinical Impression: Acute chest wall pain Patient Disposition: Home, Self-Care Time of Disposition Decision: 16:29 Condition: Good Prescriptions / Home Meds: New ibuprofen 600 mg tablet 600 mg PO Q8H Qty: 9 0RF No Action sertraline 100 mg tablet 150 mg PO DAILY aripiprazole 2 mg tablet 2 mg PO .QHS clindamycin phosphate 1 % lotion 1 applic TOPICAL DAILY Zepbound 2.5 mg/0.5 mL pen injector 2.5 mg SUBCUT .WEEKLY trazodone 150 mg tablet 150 mg PO .QHS PRN (Reason: sleep) ciprofloxacin HCl 500 mg tablet 500 mg PO BID 5 Days Qty: 10 0RF metronidazole 500 mg tablet 500 mg PO Q8H 5 Days Qty: 15 0RF oxycodone-acetaminophen [Percocet] 5-325 mg tablet 1 - 2 tab PO Q6H PRN (Reason: pain) Qty: 20 0RF Rx Instructions: Attempt to wean off Percocet to Tylenol. No more than 4000 mg Tylenol per day Print Language: Romanian Instructions: Chest Wall Pain (ED) Referrals: [facility] [Primary Care Provider] - 1 week Discharge Date/Time: 03/29/24 16:36
== END 2024-03-29 16:36 | disposition home or self-care (01) ==
PROVIDERS: Emergency Provider Emergency Medicine
DX: R07.89 Other chest pain (principal); Z90.49 Acquired absence of other specified parts of digestive tract; Z98.51 Tubal ligation status; F17.200 Nicotine dependence, unspecified, uncomplicated
CPT/HCPCS: 36415; 71046; 80053; 84484; 85025; 93005; 96372; 99285; J1885

== ENCOUNTER 2024-10-22 15:39 | Outpatient (REF) | payer BC, SELFPAY ==
[2024-10-25 11:08] LABS: Age Gdln ACOG Testing Note (.); IGP, Aptima HPV, rfx 16/18,45 Note (.)
== END 2024-10-22 15:40 | disposition home or self-care (01) ==
LOC: LAB 15:39
PROVIDERS: Visit Provider Physician Assistant
DX: Z01.419 Encounter for gynecological examination (general) (routine) without abnormal findings (principal)
CPT/HCPCS: 87624; 88175